=== PATIENT | male | born 1965 | race Caucasian/White ===

== ENCOUNTER 2019-08-13 10:14 | Outpatient (CLI) | payer MEDICARE, SELFPAY ==
--- NOTE | ~2019-08-13 | MR_ITS ---
EXAMINATION: MR knee RT wo con DATE: 08/13/2019 10:53 INDICATION: Unspecified right knee pain. TECHNIQUE: Magnetic resonance imaging (MRI) of the right knee was performed without intravenous contr ast. Sequences included coronal PD-weighted FSE, coronal PD-weighted FS FSE, sagittal T2-weighted FS E, sagittal PD-weighted FS FSE and axial PD weighted fat saturated FSE. COMPARISON: None. FINDINGS: Medial compartment: Medial meniscus is normal. Partial-thickness cartilage loss with smooth chondral surface along the an teromedial aspect of the medial tibial plateau and medial margin of the weightbearing medial femoral condyle. Some chondral surface irregularity is seen along the lateral margin of the anterior weightbe aring medial femoral condyle and juxtaposed articular cartilage of the intercondylar eminence. Tiny m arginal osteophytes are present. Lateral compartment: Longitudinal horizontal tear extending to the inferior articular surface near the free edge of the sara dy and posterior horn of the lateral meniscus. There appears be a second complex predominantly horizo ntal tear plane which contacts the inferior articular surface near the free edge medially and with th e contact the articular surface extending more peripherally as it extends to the junction with the po sterior body. There is some fraying along the inner free edge of the posterior horn. Partial-thicknes s chondral ulceration with chondral surface irregularity along the anterior to posterior weightbearin g lateral femoral condyle. In places this involves greater than 50% of the cartilage thickness. Small central subchondral osteophyte at the central weightbearing lateral femoral condyle and mild irregul arity to the articular cortex at the posterior weightbearing lateral femoral condyle. Small marginal osteophytes are present. Patellofemoral compartment: Deep chondral ulceration and fissuring along the lateral patellar facet and to a lesser degree at the apical ridge and medial facet. Small focus of subarticular edema at the central aspect of the latera l patellar facet. Additional chondral ulceration and deep fissuring with mild irregularity to the und erlying cortex and minimal subarticular edema at the caudal aspect of the lateral trochlea. Additiona l shallow chondral ulceration and deeper fissuring without degenerative subarticular changes at the t rochlear groove and medial trochlea. Ligaments and tendons: Anterior cruciate ligament is normal. There is increased intrasubstance signal along the femoral side of the posterior cruciate ligament suggesting partial tear with no discrete discontinuous ligament f ibers appreciated. The medial collateral ligament and fibular collateral ligament are normal. Mild di stal quadriceps tendinopathy with moderate size enthesophyte at its patellar insertion. There is also mild proximal patellar tendinopathy. The visualized medial and lateral hamstring tendons as well as the iliotibial band are normal. Fluid: Physiologic amount of fluid in the joint space. 1.7 x 1.4 x 1.0 cm loose osteochondral body in the re cess posterior to the posterior cruciate ligament. Moderate prepatellar tissue edema without discrete bursal fluid collection. Osseous/other: Bone alignment is normal. No fracture or pathologic marrow replacing process. There is an intraosseou s ganglion cyst at the proximal fibula which arises deep to the insertion of the intact appearing pop liteofibular ligament. IMPRESSION: 1. Likely complex tear of the body and posterior horn of the lateral meniscus. 2. Mild tricompartmental osteoarthritis with moderate grade chondral malacia in the medial compartmen t and extensive high-grade chondromalacia in the lateral and patellofemoral compartments. 3. Possible partial tear of the posterior cruciate ligament 4. Mild tendinopathy without discrete tear at the patellar insertions of
== END 2019-08-13 10:15 ==
PROVIDERS: PCP Family Medicine; Visit Provider Orthopaedic Surgery
DX: M17.11 Unilateral primary osteoarthritis, right knee (principal)
CPT/HCPCS: 73721

== ENCOUNTER 2019-08-15 08:56 | Outpatient (CLI) | payer MEDICARE, SELFPAY ==
--- NOTE | 2019-08-15 09:00 | ECG_ITS ---
Measurements Intervals [place] Rate: 68 P: 16 PA: 166 QRS: -22 QRSD: 77 T: 41 QT: 376 QTc: 401 Interpretive Statements SINUS RHYTHM DELAYED PRECORDIAL R/S TRANSITION LOW QRS VOLTAGE IN LIMB LEADS BORDERLINE ECG Electronically Signed On 08-15-2019 9:29:40 CDT by Noel Barrera D.O.
[2019-08-15 09:57] LABS: Blood Urea Nitrogen 19 mg/dL (9-20); Calcium 9.2 mg/dL (8.4-10.2); Carbon Dioxide 24 mmol/L (22-30); Chloride 105 mmol/L (98-107); Estimated Glomerular Filt Rate > 60; Glucose 165 mg/dL (75-110); Potassium 4.2 mmol/L (3.4-5.0); Sodium 133 mmol/L (137-145)
== END 2019-08-15 08:57 | disposition home or self-care (01) ==
PROVIDERS: Anesthesiology; PCP Family Medicine; Visit Provider Otolaryngology
DX: Z51.81 Encounter for therapeutic drug level monitoring (principal); I10 Essential (primary) hypertension; R94.31 Abnormal electrocardiogram [ECG] [EKG]
CPT/HCPCS: 36415; 80048; 93005

== ENCOUNTER 2019-08-18 01:12 | Outpatient (CLI) | payer MEDICARE, SELFPAY ==
[2019-08-18 18:09] LABS: SARS-CoV-2 RNA PCR Negative
== END 2019-08-18 01:13 | disposition home or self-care (01) ==
LOC: ANHCOVIDDT 01:12
PROVIDERS: PCP Family Medicine; Visit Provider Otolaryngology
DX: Z01.818 Encounter for other preprocedural examination (principal); Z11.59 Encounter for screening for other viral diseases
CPT/HCPCS: 87635; C9803; U0003

== ENCOUNTER 2019-08-21 02:34 | Day surgery (SDC) | payer MEDICARE, SELFPAY ==
[2019-08-13 11:26] VITALS: BMI 36.4
--- NOTE | 2019-08-15 06:58 | PM.HPGS ---
History of Present Illness History of Present Illness Consent: Risks, benefits, and alternatives have been discussed and questions answered. Patient agrees to proceed with procedure. Chief complaint: Chronic Serous Otitis Media Narrative: Dandy Carias is a 53 year old male [place] long history of chronic serous otitis and ear problems he is admitted now for a sub annular replacement of the ventilation tube Review of Systems Review of Systems: All systems reviewed & are unremarkable except as noted in HPI and below PMFSH Social History Social History Smoking packs per day: 1.5 Smoking cigarettes per day: 30.0 Years smoked: 35 Smoking pack-years: 52.50 Smoking status: Current every day smoker Tobacco type: cigarettes Second hand tobacco smoke exposure: Yes Alcohol intake: never Drinks per week: 2 Substance use: never Substance use type: does not use Spiritual care concerns: No Meds Home Medications and Allergies Home Medications Medication Instructions Recorded Confirmed Type acetaminophen 650 mg 650 mg PO Q12H 01/02/19 08/13/19 History tablet,extended release fluticasone propionate 50 1 spray NASAL DAILY 01/02/19 08/13/19 History mcg/actuation nasal spray,suspension testosterone cypionate 200 mg/mL 200 mg IM MONTHLY #3 vial 04/23/19 08/13/19 Rx intramuscular oil lisinopril 10 1 tablet PO DAILY #90 tablet 05/03/19 08/13/19 Rx mg-hydrochlorothiazide 12.5 mg tablet simvastatin 20 mg tablet 20 mg PO DAILY #90 tablet 05/03/19 08/13/19 Rx naproxen 500 mg tablet 500 mg PO BID #180 tablet 06/29/19 08/13/19 Rx famotidine 40 mg PO DAILY 08/13/19 08/13/19 History sertraline 50 mg PO BID 08/13/19 08/13/19 History trazodone 50 mg PO HS 08/13/19 08/13/19 History Allergies Allergy/AdvReac Type Severity Reaction Status Date / Time No Known Allergies Allergy Verified 08/13/19 11:27 Assessment and Plan Additional Plan Plan is a sub annular placement of a ventilation tube
--- NOTE | 2019-08-21 06:24 | WPDHPUPDATE1 ---
History and Physical Update Update Date/Time: 08/21/19 06:24 History and Physical has been reviewed, including an updated exam of the patient. There are NO changes in the patient's condition. Risks, benefits, and alternatives have been discussed and questions answered. Patient agrees to proceed with procedure.
[2019-08-21] MEDS: LACTATED RINGERS 1,000 ML 30 ML IV CONT (08:47)
[2019-08-21 08:51] VITALS: BP 103/58; PULSE 55; TEMP 36.1; O2SAT 98
--- NOTE | 2019-08-21 09:28 | WPDANESEPPF ---
Anes - Initial Pre Proc Eval Procedure: Operation Date: 08/21/19 10:15 Proposed Procedures p Right Exploratory Tympanotomy With Tube Placement - Dandy Kerns MD Date/Time: 08/21/19 09:28 Surgeon: Dandy Kerns MD Pre Op Diagnosis: Chronic Serous Otitis Media Patient Data Age: 53 Gender: M Height: 6 ft Weight: 122.6 kg Last Vital Signs Temp 97.0 F L 08/21/19 08:51 Pulse 55 L 08/21/19 08:51 BP 103/58 L 08/21/19 08:51 Pulse Ox 98 08/21/19 08:51 Allergies Allergy/AdvReac Type Severity Reaction Status Date / Time No Known Allergies Allergy Verified 08/13/19 11:27 Home Medications Medication Instructions Recorded Confirmed Type acetaminophen 650 mg 650 mg PO Q12H 01/02/19 08/21/19 History tablet,extended release fluticasone propionate 50 1 spray NASAL DAILY 01/02/19 08/21/19 History mcg/actuation nasal spray,suspension testosterone cypionate 200 mg/mL 200 mg IM MONTHLY #3 vial 04/23/19 08/21/19 Rx intramuscular oil lisinopril 10 1 tablet PO DAILY #90 tablet 05/03/19 08/21/19 Rx mg-hydrochlorothiazide 12.5 mg tablet simvastatin 20 mg tablet 20 mg PO DAILY #90 tablet 05/03/19 08/21/19 Rx naproxen 500 mg tablet 500 mg PO BID #180 tablet 06/29/19 08/21/19 Rx famotidine 40 mg PO DAILY 08/13/19 08/21/19 History sertraline 50 mg PO BID 08/13/19 08/21/19 History trazodone 50 mg PO HS 08/13/19 08/21/19 History Patient hx anesthesia problems: none Family hx anesthesia problems: none PMFSH Social History Social History Smoking packs per day: 1.5 Smoking cigarettes per day: 30.0 Years smoked: 35 Smoking pack-years: 52.50 Smoking status: Current every day smoker Tobacco type: cigarettes Second hand tobacco smoke exposure: Yes Alcohol intake: never Drinks per week: 2 Substance use: never Substance use type: does not use Spiritual care concerns: No Anes - Eval Final PreProcedure Day of Procedure 08/21/19 09:28 Patient weight: obese Heart: regular rate and rhythm Lungs: clear to auscultation Airway: Mallampati scale class III Neurological: alert and oriented Last oral intake: >/= 8 hours ASA classification: III Emergent: no Anesthetic plan: proceed Anesthesia type and monitoring: general LMA and standard monitoring Informed Consent: The patient's anesthetic plan and its attendant risks and benefits were discussed with the patient/family/POA. Questions were solicited and answers provided to the satisfaction of the patient/family/POA.
[2019-08-21] MEDS: LIDO 1%/EPINEPHRINE 1:100,000 20 ML VIAL INFILTRATE (10:21)
[2019-08-21] MEDS: NEOMYCIN/POLYMYXIN/BACITR/HC OINT 15 GM TUBE 1 APPLIC TOPICAL (10:23)
[2019-08-21] MEDS: CIPROFLOXACIN HCL 0.3% OP SOLN 2.5 ML BTL 4 DROP EACH EAR (10:24)
--- NOTE | 2019-08-21 10:25 | PM.PROC ---
Procedure Note - Detailed Date of procedure: 08/21/19 Pre-op diagnosis: Chronic Serous Otitis Media Chronic serous otitis Post-op diagnosis: same Procedure performed: Right sub annular placement of a T-tube and a secondary to anterosuperiorly Description of procedure: Patient was prepped and draped from general anesthesia vascular strip was injected with xylocaine with adrenaline a tympanomeatal flap elevated and the T-tube inserted under the annulus a secondary tube was inserted us anterosuperior this Anesthesia: GLMA Surgeon: Dandy Kerns MD Estimated blood loss (mL): 0 Drains: No Packing: No Pathology: none sent Complications: No immediate complications Condition: stable Disposition: PACU Findings: right serous otitis
[2019-08-21 10:32] VITALS: BP 80/36; PULSE 60; TEMP 36.3; O2SAT 98
[2019-08-21 10:45] VITALS: BP 85/38; PULSE 59; O2SAT 97
[2019-08-21 11:00] VITALS: BP 86/41; PULSE 59; O2SAT 93
[2019-08-21 11:15] VITALS: BP 96/50; PULSE 59
[2019-08-21 11:45] VITALS: BP 106/58; PULSE 59
--- NOTE | 2019-08-21 12:12 | SUR.PHASEII ---
1200: Patient is unhooked from monitors and waiting for ride.
== END 2019-08-21 12:25 | disposition home or self-care (01) ==
PROVIDERS: PCP Family Medicine; Visit Provider Otolaryngology
PROC: (CPT 69436; principal; 2019-08-21 10:15)
DX: H65.21 Chronic serous otitis media, right ear (principal); F17.210 Nicotine dependence, cigarettes, uncomplicated; E66.9 Obesity, unspecified; Z68.36 Body mass index [BMI] 36.0-36.9, adult
CPT/HCPCS: 69436; 87635; A9270; C9803; J0171; J1100; J2250; J2405; J2704; J3010; J7120; U0003

== ENCOUNTER 2019-09-10 01:24 | Outpatient (CLI) | payer OTHER, SELFPAY ==
[2019-09-10 16:16] LABS: SARS-CoV-2 RNA PCR Negative
== END 2019-09-10 01:25 | disposition home or self-care (01) ==
LOC: ANHCOVIDDT 01:24
PROVIDERS: PCP Family Medicine; Visit Provider Orthopaedic Surgery
DX: Z01.812 Encounter for preprocedural laboratory examination (principal); Z11.59 Encounter for screening for other viral diseases
CPT/HCPCS: 87635; C9803; U0003

== ENCOUNTER 2019-09-12 00:55 | Day surgery (SDC) | payer OTHER, SELFPAY ==
[2019-08-30 15:05] VITALS: BMI 36.4
--- NOTE | 2019-09-11 11:03 | WPDANESEPPF ---
Anes - Initial Pre Proc Eval Procedure: Operation Date: 09/12/19 14:00 Proposed Procedures p Right Knee Arthroscopy, Proceed As Indicated - Santiago Mccoy MD Date/Time: 09/11/19 11:03 Surgeon: Santiago Mccoy MD Pre Op Diagnosis: Right Medial Meniscus Tear Patient Data Age: 54 Gender: M Height: 1.83 m Weight: 122.02 kg Allergies Allergy/AdvReac Type Severity Reaction Status Date / Time No Known Allergies Allergy Verified 08/30/19 15:06 Home Medications Medication Instructions Recorded Confirmed Type acetaminophen 650 mg 650 mg PO Q12H 01/02/19 08/30/19 History tablet,extended release fluticasone propionate 50 1 spray NASAL DAILY 01/02/19 08/30/19 History mcg/actuation nasal spray,suspension testosterone cypionate 200 mg/mL 200 mg IM MONTHLY #3 vial 04/23/19 08/30/19 Rx intramuscular oil lisinopril 10 1 tablet PO DAILY #90 tablet 05/03/19 08/30/19 Rx mg-hydrochlorothiazide 12.5 mg tablet simvastatin 20 mg tablet 20 mg PO DAILY #90 tablet 05/03/19 08/30/19 Rx naproxen 500 mg tablet 500 mg PO BID #180 tablet 06/29/19 08/30/19 Rx famotidine 40 mg PO DAILY 08/13/19 08/30/19 History sertraline 50 mg PO BID 08/13/19 08/30/19 History trazodone 50 mg PO HS 08/13/19 08/30/19 History chlorhexidine gluconate 4 % 1 applic TOPICAL ONCE #237 ml 08/28/19 08/30/19 Rx topical liquid PMFSH Social History Social History Smoking packs per day: 1.5 Smoking cigarettes per day: 30.0 Years smoked: 30 Smoking pack-years: 45.00 Smoking status: Current every day smoker Tobacco type: cigarettes Second hand tobacco smoke exposure: Yes Alcohol intake: current Drinks per week: 2 Substance use: never Substance use type: does not use Spiritual care concerns: No Anes - Eval Final PreProcedure Day of Procedure 09/11/19 11:03 Patient weight: obese Heart: regular rate and rhythm Lungs: clear to auscultation and normal air movement Airway: Mallampati scale class II Neurological: alert and oriented Last oral intake: >/= 8 hours ASA classification: III Emergent: no Anesthetic plan: proceed Anesthesia type and monitoring: general LMA and standard monitoring Informed Consent: The patient's anesthetic plan and its attendant risks and benefits were discussed with the patient/family/POA. Questions were solicited and answers provided to the satisfaction of the patient/family/POA.
[2019-09-12] VITALS (8 sets, daily range): BP systolic 119–165; BP diastolic 67–91; PULSE 57–92; RESP 11–20; TEMP 36.1–36.6; O2SAT 57–99
--- NOTE | 2019-09-12 07:16 | WPDHPUPDATE1 ---
History and Physical Update Update Date/Time: 09/12/19 07:16 History and Physical has been reviewed, including an updated exam of the patient. There are NO changes in the patient's condition. Risks, benefits, and alternatives have been discussed and questions answered. Patient agrees to proceed with procedure.
[2019-09-12] MEDS: LACTATED RINGERS 1,000 ML 30 ML IV CONT ×2 (12:15→14:58)
[2019-09-12] MEDS: CELECOXIB 200 MG CAPSULE PO (12:35)
--- NOTE | 2019-09-12 12:53 | WPDANESEPPF ---
Anes - Initial Pre Proc Eval Procedure: Operation Date: 09/12/19 14:00 Proposed Procedures p Right Knee Arthroscopy, Proceed As Indicated - Santiago Mccoy MD Date/Time: 09/12/19 12:53 Surgeon: Santiago Mccoy MD Pre Op Diagnosis: Right Medial Meniscus Tear Patient Data Age: 54 Gender: M Height: 6 ft Weight: 124.3 kg Last Vital Signs Temp 97.9 F 09/12/19 12:26 Pulse 57 L 09/12/19 12:26 Resp 17 09/12/19 12:26 BP 119/67 09/12/19 12:26 Pulse Ox 57 L 09/12/19 12:26 Allergies Allergy/AdvReac Type Severity Reaction Status Date / Time No Known Allergies Allergy Verified 08/30/19 15:06 Home Medications Medication Instructions Recorded Confirmed Type acetaminophen 650 mg 650 mg PO Q12H 01/02/19 08/30/19 History tablet,extended release fluticasone propionate 50 1 spray NASAL DAILY 01/02/19 08/30/19 History mcg/actuation nasal spray,suspension testosterone cypionate 200 mg/mL 200 mg IM MONTHLY #3 vial 04/23/19 08/30/19 Rx intramuscular oil lisinopril 10 1 tablet PO DAILY #90 tablet 05/03/19 08/30/19 Rx mg-hydrochlorothiazide 12.5 mg tablet simvastatin 20 mg tablet 20 mg PO DAILY #90 tablet 05/03/19 08/30/19 Rx naproxen 500 mg tablet 500 mg PO BID #180 tablet 06/29/19 08/30/19 Rx famotidine 40 mg PO DAILY 08/13/19 08/30/19 History sertraline 50 mg PO BID 08/13/19 08/30/19 History trazodone 50 mg PO HS 08/13/19 08/30/19 History chlorhexidine gluconate 4 % 1 applic TOPICAL ONCE #237 ml 08/28/19 08/30/19 Rx topical liquid Patient hx anesthesia problems: none Family hx anesthesia problems: none PMFSH Social History Social History Smoking packs per day: 1.5 Smoking cigarettes per day: 30.0 Years smoked: 30 Smoking pack-years: 45.00 Smoking status: Current every day smoker Tobacco type: cigarettes Second hand tobacco smoke exposure: Yes Alcohol intake: current Drinks per week: 2 Substance use: never Substance use type: does not use Spiritual care concerns: No Anes - Eval Final PreProcedure Day of Procedure 09/12/19 12:53 Patient weight: obese Heart: regular rate and rhythm Lungs: clear to auscultation Airway: Mallampati scale class III Neurological: alert and oriented Last oral intake: >/= 8 hours ASA classification: III Emergent: no Anesthetic plan: proceed Anesthesia type and monitoring: general LMA and standard monitoring Informed Consent: The patient's anesthetic plan and its attendant risks and benefits were discussed with the patient/family/POA. Questions were solicited and answers provided to the satisfaction of the patient/family/POA.
[2019-09-12] MEDS: ceFAZolin 3 GM/D5W 100 ML 100 ML IVPB (13:29)
--- NOTE | 2019-09-12 15:00 | PM.OP ---
Procedure Note - Brief Procedure Note - Brief Date of procedure: 09/12/19 Pre-op diagnosis: Right Medial Meniscus Tear Post-op diagnosis: other (lateral meniscus tear and medial meniscus tear) Procedure performed: RIGHT KNEE SCOPE Anesthesia: GETA Surgeon: Santiago Mccoy MD Estimated blood loss (mL): 10 Complications: No immediate complications Condition: stable Disposition: PACU
--- NOTE | 2019-09-12 16:56 | OP_ITS ---
DATE OF PROCEDURE: 09/12/2019 PREOPERATIVE DIAGNOSIS: Right knee medial meniscus tear. POSTOPERATIVE DIAGNOSES: Right medial meniscus tear, right lateral meniscus tear, chondromalacia, and synovitis. PROCEDURE: Right knee arthroscopy with partial medial meniscectomy, partial lateral meniscectomy, and major synovectomy. ANESTHESIA: General. COMPLICATIONS: None. INDICATIONS: This is a 54-year-old male who has chronic right knee pain. He was eventually diagnosed with a medial meniscus tear and a lateral meniscus tear. He was indicated for right knee arthroscopy. DESCRIPTION OF PROCEDURE: The patient was taken to the operating room in stable condition and placed in supine position. General anesthesia was induced and then the right lower extremity was prepped and draped sterilely from the toes to the thigh. Superomedial portal was used as an outflow cannula. Inferolateral plane was used for the camera. The camera was introduced. There was grade 2 chondromalacia to the patella and to the trochlea. There was a large amount of synovitis in the superior medial compartment. There was a large plica band there as well impinging on the medial femoral condyle. With flexion, the medial compartment was entered. There was a radial tear to the medial meniscus and that was resected with a biter and a shaver through a medial portal. Synovectomy was performed in that region as well. The ACL was identified and was intact. The lateral compartment was entered. There was a complex tear of the lateral meniscus. This was resected with a shaver and a biter as well and contoured to a smooth base. There was also grade 3 chondromalacia to the lateral femoral condyle and that underwent chondroplasty and synovectomy was performed in that region as well. Next, the chondroplasty was performed in the femoral groove just distal to the trochlea where there was grade 3 chondromalacia and then synovectomy was performed in [place] synovium. The knee joint was irrigated thoroughly. The patella tracked without any tilt. The instruments were removed. The wounds were approximated with 4-0 nylon suture. Sterile dressing was applied. The patient was extubated. Don I MT: Nickolas
== END 2019-09-12 17:07 | disposition home or self-care (01) ==
PROVIDERS: PCP Family Medicine; Visit Provider Orthopaedic Surgery
PROC: (CPT 29870; principal; 2019-09-12 14:00)
DX: M23.331 Other meniscus derangements, other medial meniscus, right knee (principal); M23.361 Other meniscus derangements, other lateral meniscus, right knee; M65.861 Other synovitis and tenosynovitis, right lower leg; M22.41 Chondromalacia patellae, right knee; E78.5 Hyperlipidemia, unspecified; K21.9 Gastro-esophageal reflux disease without esophagitis; F41.8 Other specified anxiety disorders; G47.33 Obstructive sleep apnea (adult) (pediatric); F17.210 Nicotine dependence, cigarettes, uncomplicated; Z79.82 Long term (current) use of aspirin
CPT/HCPCS: 29880; 87635; A9270; C9803; J0690; J1100; J1885; J2250; J2405; J2704; J3010; J7120; U0003

== ENCOUNTER 2019-11-26 07:19 | Outpatient (RCR) | payer MEDICARE, SELFPAY ==
[2019-09-18 08:56] VITALS: BMI 35.7
--- NOTE | 2019-10-22 12:20 | PCWOUND ---
WOCN NOTE Patient did not show up for appointment. called and rescheduled for next Tuesday.
--- NOTE | 2019-10-29 12:27 | PCWOUND ---
WOCNNOTE Patient did not show up for appointment, left message.
== END 2019-12-17 23:59 | disposition home or self-care (01) ==
LOC: ANHWOC 07:19
PROVIDERS: PCP Family Medicine; Visit Provider Family Medicine
DX: L98.499 Non-pressure chronic ulcer of skin of other sites with unspecified severity (principal)
CPT/HCPCS: 99212; A9270; G0463

== ENCOUNTER 2020-05-07 07:41 | Outpatient (RCR) | payer MEDICARE, SELFPAY ==
[2020-04-09 09:09] VITALS: BMI 36.9
--- NOTE | 2020-06-04 10:02 | PCWOUND ---
WOCN NOTE patient did not show up for appointment or call to cancel .
== END 2020-07-08 23:59 | disposition home or self-care (01) ==
LOC: ANHWOC 07:41
PROVIDERS: PCP Family Medicine; Visit Provider Family Medicine
DX: T81.31XD Disruption of external operation (surgical) wound, not elsewhere classified, subsequent encounter (principal)
CPT/HCPCS: 99212; A9270; G0463

== ENCOUNTER 2020-09-04 02:00 | Inpatient (IN) | payer MEDICARE, MEDICAID, SELFPAY ==
[2020-09-04] VITALS (56 sets, daily range): BP systolic 66–180; BP diastolic 38–100; PULSE 84–148; RESP 14–40; TEMP 36.4–39.6; O2SAT 88–99; BMI 36.4
--- NOTE | ~2020-09-04 | XR_ITS ---
XR chest-chest tube insert/pos 09/04/2020 09:09 Indication: Chest tube placement Procedure: AP portable chest Comparison: Comparison to multiple prior studies sequentially, with oldest reviewed study dated 01/07. Findings: Interval placement of right apical chest tube. No pneumothorax identified. Subcutaneous gas in the right lateral chest wall. NG tube in the stomach. Endotracheal tube tip approximately 4.3 cm right IJ central line tip near the brachiocephalic vein. Bibasilar airspace disease. Impression: 1: Persistent bibasilar airspace disease which may represent atelectasis and/or pneumonia. 2: Right apical chest tube is present. No pneumothorax identified. Reviewed, dictated and finalized at location A. Impression: 1: Persistent bibasilar airspace disease which may represent atelectasis and/or pneumonia. 2: Right apical chest tube is present. No pneumothorax identified.
--- NOTE | ~2020-09-04 | XR_ITS ---
XR chest 1V portable 09/04/2020 11:43 Indication: Hypoxia Procedure: AP view of the chest Comparison: Comparison to multiple prior studies sequentially, with oldest reviewed study dated 01/07. Findings: Endotracheal tube tip 4.9 cm above the kathleen. Right apical chest tube position unchanged. Mild interstitial edema. Left basilar bandlike atelectasis. Borderline heart size. No pneumothorax. P ossible small effusions. Impression: 1: Mild interstitial edema. 2: Bandlike atelectasis left lower lung. Reviewed, dictated and finalized at location A. Impression: 1: Mild interstitial edema. 2: Bandlike atelectasis left lower lung.
--- NOTE | ~2020-09-04 | XR_ITS ---
XR chest 1V portable 09/04/2020 02:27 Indication: Hypoxia Procedure: AP portable chest Comparison: 01/24/2008 Findings: Heart size normal. Bilateral perihilar interstitial infiltrates. No significant effusion or pneumothorax. No acute osseous abnormality. Impression: 1: Bilateral perihilar interstitial infiltrates which may represent pneumonia or edema. Reviewed, dictated and finalized at location A. Impression: 1: Bilateral perihilar interstitial infiltrates which may represent pneumonia o r edema.
--- NOTE | ~2020-09-04 | CT_ITS ---
EXAMINATION: CT chest abdomen pelvis wo con DATE: 09/05/2020 08:49 INDICATION: Septic shock TECHNIQUE: Computed tomography (CT) of the chest, abdomen, and pelvis was performed without intraveno us contrast. Automated exposure control and iterative reconstruction technique were employed. The dos e-length product was 2171.38 mGy-cm. COMPARISON: 09/04/2020 FINDINGS: CHEST CT: Endotracheal tube tip 4.4 cm above the kathleen. Nasogastric tube which extends into the stomach with d istal tip at the gastric antrum. Interval placement of a right chest tube. No evident right pneumotho rax. Region of confluent consolidation and groundglass opacity in the dependent right upper lobe. Sma ller regions of patchy groundglass opacity in the left upper lobe and lingula. There is collapse of t he right middle lobe. Partial collapse of the bilateral lower lobes. Small left pleural effusion. Hea rt size is normal. No pericardial effusion. Thoracic aorta is normal in caliber. No pathologically en larged thoracic lymphadenopathy. Mild thoracic spondylosis. ABDOMEN/PELVIS CT: Diffuse hepatic steatosis. Cholecystectomy clips the gallbladder fossa. Spleen, pancreas, left kidney and bilateral adrenal glands are normal. Moderate right renal atrophy with regions of cortical scarr ing. Large open surgical wound along the midline of the abdomen were previously there were numerous v entral hernias. There is a residual small fat and ascites containing right ventral hernia. A couple l oops of small bowel extend short distance into an additional residual left-sided ventral hernia. No d ilated bowel to suggest obstruction. There is however suggestion of edematous wall thickening involvi ng the proximal colon as well as multiple loops of small bowel scattered throughout the abdomen and p sandy on both the left and right. Small amount of gas and a Horton catheter within the decompressed bl adder. There is an additional small catheter versus temperature probe extending into the rectum. Agai n seen are changes of more chronic partial colectomy with distal sigmoid anastomotic suture line. The re is extensive mesenteric and retroperitoneal edema along with small amount of ascites scattered thr oughout the abdomen and pelvis. There are also few tiny foci of extraluminal gas scattered throughout the mesentery. No abscess. Moderate lumbar spondylosis. IMPRESSION: 1. Interval placement of a right chest tube. No pneumothorax. 2. Confluent consolidation and groundglass opacities in the dependent right lower lobe with additiona l patchy groundglass opacities in the lingula and left upper lobe. Differential includes pulmonary he morrhage, pneumonia, aspiration, pulmonary edema or some combination thereof. 3. Collapse of the right middle lobe and partial collapse of the right and left lower lobes. 4. Small left pleural effusion. 5. Large open wound along the midline of the abdomen at the site of a prior multiple large ventral he rnias with residual small ventral hernias, one on the right containing fat and small amount of ascite s and one on the left containing a couple short segments of nonobstructed small bowel. 6. Bowel wall thickening in the proximal colon and along multiple loops of small bowel throughout the abdomen and pelvis consistent with enterocolitis most likely related to either sepsis or ischemia wi th differential including less likely infection or least likely inflammatory bowel disease. 7. Mesenteric and retroperitoneal edema, small amount of ascites and a few scattered foci of free ext raluminal gas along the small bowel mesentery which could be related to prior surgery although some w ere present before the surgery would suggest a prior bowel ischemia/or perforation. Correlate with in traoperative findings. Reviewed, dictated and finalized at location A. Electronically signed by Aleksey Lockhart
--- NOTE | ~2020-09-04 | XR_ITS ---
XR chest-chest tube insert/pos 09/05/2020 02:57 Indication: Hypoxia. Dyspnea. Chest tube placement. Procedure: AP portable chest Comparison: Comparison to multiple prior studies sequentially, with oldest reviewed study dated 09/04. Findings: Endotracheal tube tip 4.3 cm above the kathleen. Right apical chest tube present. Diffuse jackie ateral airspace disease unchanged. No significant effusion. No pneumothorax. Right IJ central line ti p near the brachiocephalic vein. NG tube is not well visualized distally. Elevated right diaphragm un changed. Impression: 1: Unchanged bilateral airspace disease which may represent edema or pneumonia. Reviewed, dictated and finalized at location A. Impression: 1: Unchanged bilateral airspace disease which may represent edema or pneumonia.
--- NOTE | ~2020-09-04 | XR_ITS ---
XR chest 1V portable 09/04/2020 09:08 Indication: Dyspnea. Low oxygen saturation. Procedure: AP portable chest Comparison: Comparison to multiple prior studies sequentially, with oldest reviewed study dated 03/2006. Findings: Endotracheal tube tip 3.7 cm above the kathleen. NG tube in the stomach. Right IJ central hernando e tip near the brachiocephalic vein. Bibasilar infiltrates. No significant effusion or pneumothorax. Impression: 1: Bibasilar infiltrates may represent atelectasis and/or pneumonia. Reviewed, dictated and finalized at location A. Impression: 1: Bibasilar infiltrates may represent atelectasis and/or pneumonia.
--- NOTE | ~2020-09-04 | XR_ITS ---
EXAMINATION: XR chest 1V portable DATE: 09/06/2020 06:23 INDICATION: Intubated TECHNIQUE: frontal view of the chest was obtained. COMPARISON: Chest radiograph dated 09/05/2020 FINDINGS: Endotracheal tube tip 3.2 cm above the kathleen. Apically directed right chest tube. Right internal jug ular central venous catheter with distal tip at the junction of the right internal jugular and brachi ocephalic veins. Nasogastric tube extends below the left hemidiaphragm with distal tip collimated of f the study. Diffuse airspace opacities throughout both lungs relatively sparing the apices. This has increased in the left lower lung zone. No pneumothorax or evident pleural effusion. The cardiomediastinal silhoue tte is within normal limits for AP technique. IMPRESSION: 1. Diffuse bilateral lung disease relatively sparing the apices which could represent pneumonia, atel ectasis, pulmonary edema or some combination thereof. Reviewed, dictated and finalized at location A. IMPRESSION: 1. Diffuse bilateral lung disease relatively sparing the apices which could rep resent pneumonia, atelectasis, pulmonary edema or some combination thereof.
--- NOTE | ~2020-09-04 | CT_ITS ---
EXAMINATION: CT abdomen pelvis w con DATE: 09/04/2020 03:09 INDICATION: Generalized abdominal pain TECHNIQUE: Computed tomography (CT) of the abdomen and pelvis was performed with 100 mL Omnipaque-350 intravenous contrast. Automated exposure control and iterative reconstruction technique were employe d. The dose-length product was 1386.26 mGy-cm. COMPARISON: None FINDINGS: Dependent atelectasis in the bilateral lower lobes, right greater than left. Heart size is normal. No pericardial or pleural effusion. Diffuse hepatic steatosis. Cholecystectomy clips at gallbladder fos sa. Spleen, pancreas, bilateral adrenal glands and left kidney are normal. Moderate right renal atrop hy with focal regions of cortical scarring. Small amount of ascites throughout the abdomen and pelvis along with small amount of pneumoperitoneum in the nondependent abdomen consistent with perforated v iscus. Postoperative change of prior partial colectomy with anastomotic suture line in the pelvis caryn ng the distal sigmoid colon. Multiple ventral hernias of varying sizes containing multiple loops of s mall bowel, many of which are dilated. There are several transition points where the small bowel is d ecompressed angulated were enters and exits a few of the hernia sacs. The distal small bowel is decom pressed beyond one of these transition points which is located at one of the hernia sacs at the right abdomen. Normal appendix. Decompressed bladder is unremarkable. There is small amount of scattered c alcified atherosclerosis without significant stenosis of the aorta and bilateral iliac arteries. Smal l bilateral fat-containing inguinal hernias. Moderate thoracolumbar spondylosis. Severe right and mil d to moderate left hip osteoarthritis. IMPRESSION: 1. Small bowel obstruction with multiple mildly dilated loops of fluid-filled small bowel, potentiall y multifocal with several transition points where the bowel is focally decompressed and angulated whe re it enters or exhibits a few of multiple ventral hernias sacs. 2. Small amount of ascites and scattered free intraperitoneal gas consistent with perforated viscus a nd raising concern for small bowel incarceration with ischemia. 3. Diffuse hepatic steatosis. 4. Small bilateral fat-containing inguinal hernias. Reviewed, dictated and finalized at location A. IMPRESSION: 1. Small bowel obstruction with multiple mildly dilated loops of fluid-filled s mall bowel, potentially multifocal with several transition points where the bow el is focally decompressed and angulated where it enters or exhibits a few of m ultiple ventral hernias sacs. 2. Small amount of ascites and scattered free intraperitoneal gas consistent wi th perforated viscus and raising concern for small bowel incarceration with isc hemia. 3. Diffuse hepatic steatosis. 4. Small bilateral fat-containing inguinal hernias.
--- NOTE | ~2020-09-04 | XR_ITS ---
XR abdomen NG/feed tube insert INDICATION: Evaluate NG tube position. TECHNIQUE: Limited KUB perform for evaluating NG tube . COMPARISON: 12/30/2009 FINDINGS: NG tube tip in the midesophagus. Visualized bowel gas pattern is unremarkable.There are le ft renal stones. There are cholecystectomy clips. IMPRESSION: 1: NG tube tip in the midesophagus. Recommend advancement. Reviewed, dictated and finalized at location A.
--- NOTE | 2020-09-04 02:05 | ED.ABDPAIN ---
HPI - Abdominal Pain General Chief Complaint: Abdominal Pain Stated Complaint: abd pain Time Seen by Provider: 09/04/20 02:05 History of Present Illness HPI narrative: 55 yo male w/ h/o perforated diverticulitis presents to the ED c/o abdominal pain. Severe generalized abdominal pain for the past 4 hours. Associated with nausea and vomiting. He has had 2 previous surgeries for perforated diverticulitis in the past at [facility]. Given 100mcg fentanyl by EMS. Arrived hypoxic. Related Data Home Medications Medication Instructions Recorded Confirmed sertraline 50 mg tablet 50 mg PO BID tablet 07/03/20 08/21/20 Allergies Allergy/AdvReac Type Severity Reaction Status Date / Time No Known Allergies Allergy Verified 09/04/20 02:27 Review of Systems Constitutional: Constitutional: Reports chills and Denies fever(s) Cardiovascular: Cardiovascular: Denies chest pain Respiratory: Respiratory: Denies dyspnea Gastrointestinal: Gastrointestinal: Reports abdominal pain, Reports nausea and Reports vomiting Genitourinary: Genitourinary: Reports no additional male genitourinary complaints Neurologic: Reports system reviewed and no additional complaints, except as documented PMFSH Past Medical History Medical History Anxiety Arthritis Chronic low back pain without sciatica Decreased hearing of right ear Degenerative disc disease Depression Diverticulitis Dyslipidemia Environmental allergies Essential (primary) hypertension Fatty liver GERD (gastroesophageal reflux disease) GERD without esophagitis Hemorrhoids History of anesthesia reaction History of diverticulitis Hypogonadism male Insomnia LIBRA (obstructive sleep apnea) Prediabetes Prostatitis Sleep apnea Smoker Ulcer Unspecified osteoarthritis, unspecified site Surgical History Surgical History H/O inguinal hernia repair (~2018) History of arthroscopic knee surgery 09/2019 - Right knee meniscus repair History of bladder repair surgery (~2002) History of cholecystectomy (~2011) History of colon resection (~2018) History of discectomy L5 2002 History of hernia repair (~2018) History of knee surgery (~03/2020) History of partial colectomy (~08/2017) 08/24 History of sinus surgery (~2016) History of tonsillectomy (~04/2011) 04/2011 Hx of colostomy (~08/17/17) 08/17/2017 Family History Family History Father Arthritis Other Heart disease Social History Social History Smoking packs per day: 1.5 Smoking cigarettes per day: 30.0 Years smoked: 30 Smoking pack-years: 45.00 Smoking status: Current every day smoker Tobacco type: cigarettes Second hand tobacco smoke exposure: Yes Alcohol intake: current Drinks per week: 2 Substance use: never Substance use type: does not use Gender identity (if verbalized by the patient): Male Spiritual care concerns: No Exam Const: General: alert and ill appearing Other: moderate distress, diaphoretic HENMT: Head: normal to inspection Resp: Effort & Inspection: tachypneic Cardio: Rate: tachycardic Rhythm: regular rhythm GI: Inspection: distended GI Palp: Yes Tenderness to palpation present (GI), Yes Guarding due to palpation present (GI) and No Rebound tenderness present : Testes: Testes normal Skin: Other: diaphoretic Neuro: General: patient oriented x3 and moves all extremities Speech: normal speech Extrem: General: no edema Psych: Affect: Anxious affect present (agitated) Procedures Intubation Intubation #1: sedative: Etomidate Mg Given: 20 paralytic: Rocuronium Mg Given: 50 Laryngoscope: fiber optic video scope Tube Size (cm): Cuffed Method of Intubation: orotracheal Number of Atte
--- NOTE | 2020-09-04 02:11 | ECG_ITS ---
Measurements Intervals [place] Rate: 62 P: 28 IN: 139 QRS: -48 QRSD: 80 T: 52 QT: 362 QTc: 368 Interpretive Statements SINUS RHYTHM LOW QRS VOLTAGE IN LIMB LEADS POOR R WAVE PROGRESSION, ANTERIOR LEADS INFERIOR INFARCT, AGE INDETERMINATE BASELINE ARTIFACT- II, III, AVR, AVF, V3-V6 ABNORMAL ECG Electronically Signed On 09-04-2020 6:45:24 CDT by Noel Barrera D.O.
[2020-09-04] MEDS: SODIUM CHLORIDE 0.9% IV 1,000 ML 999 ML IV CONT ×4 (02:33→23:25)
[2020-09-04] MEDS: MORPHINE SULFATE (*CRX) 4 MG/ML INJ IV PUSH (02:34)
[2020-09-04] MEDS: ONDANSETRON INJ 4 MG/2 ML VIAL IV PUSH (02:34)
--- NOTE | 2020-09-04 02:52 | PC.NURSE ---
Pt to CT at this time.
[2020-09-04 02:59] LABS: Estimated CRCL calculation 62 ml/min; Estimated Glomerular Filt Rate 45
[2020-09-04 03:02] LABS: Basophils Percent Auto 0.3 % (0.2-1.2); Eosinophils Absolute Auto 0.1 K/mm3 (0-0.3); Eosinophils Percent Auto 0.7 % (0-4.4); Hematocrit 51.9 % (42.0-52.0); Hemoglobin 16.9 g/dL (14.0-18.0); Immature Granulocyte Absolute 0.02 K/mm3 (0.00-0.031); Immature Granulocyte Percent A 0.2 % (0-0.5); Lymphocytes Absolute Auto 1.22 K/mm3 (0.9-3.2); Lymphocytes Percent Auto 13.8 % (18.3-44.2); Mean Corpuscular HGB Conc 32.6 g/dl (32-36); Mean Corpuscular Hemoglobin 30.6 pg (26-34); Mean Platelet Volume 11.6 fl (7.4-10.4); Monocytes Absolute Auto 0.1 K/mm3 (0.1-0.6); Monocytes Percent Auto 1.4 % (2.6-8.5); Neutrophils Absolute Auto 7.4 K/mm3 (1.3-6.7); Neutrophils Percent Auto 83.6 % (45.5-73.1); Platelet Count Result 331 k/mm3 (150-375); Red Blood Count 5.52 M/mm3 (4.6-6.20); Red Cell Distribution Width 13.9 % (11.5-14.5); White Blood Count 8.8 K/mm3 (4.5-10.0)
[2020-09-04 03:18] LABS: Lactic Acid Reflex 3.1 mmol/L (0.7-2.1)
[2020-09-04 03:21] LABS: INR 0.9; Prothrombin Time 12.2 Seconds (11.1-14.7)
[2020-09-04 03:22] LABS: Alanine Aminotransferase 27 U/L (4-50); Albumin Level 4.3 g/dL (3.5-5.1); Alkaline Phosphatase 116 U/L (38-126); Anion Gap 13 mmol/L (8-16); Aspartate Amino Transferase 33 U/L (17-59); Bilirubin,Total 1.1 mg/dL (0.2-1.3); Blood Urea Nitrogen 19 mg/dL (9-20); Calcium 9.2 mg/dL (8.4-10.2); Carbon Dioxide 23 mmol/L (22-30); Chloride 104 mmol/L (98-107); Estimated CRCL calculation 62 ml/min; Estimated Glomerular Filt Rate 45; Glucose 172 mg/dL (65-110); Partial Thromboplastin Time 24.8 SECONDS (22.3-36.8); Potassium 3.8 mmol/L (3.4-5.0); Sodium 140 mmol/L (137-145)
[2020-09-04 03:28] LABS: Troponin I < 0.012 ng/mL (0.000-0.034)
--- NOTE | 2020-09-04 03:39 | PC.NURSE ---
Pt unable to tolerate NG insertion at this time. ERP aware.
[2020-09-04 03:40] LABS: CRP 2.7 mg/dL (<1.0)
[2020-09-04] MEDS: LORazepam INJ (*CRX) 2 MG/ML VIAL 1 MG IV PUSH (03:49)
--- NOTE | 2020-09-04 03:54 | PC.NURSE ---
RN in room for Ativan administration per ERP order prior to NG insertion. Pt heart rate elevated to 210, 190, and 170 for short durations and then returned to a heart rate just above parameters. ERP made aware immediately, crash cart at bedside.
--- NOTE | 2020-09-04 04:13 | PC.NURSE ---
Pt placed on 15 L non-rebreather at this time. O2 sat had been dropping to 87%-89%. O2 sat at 99% at this time.
[2020-09-04] MEDS: LORazepam INJ (*CRX) 2 MG/ML VIAL IV PUSH (04:33)
--- NOTE | 2020-09-04 04:45 | PC.NURSE ---
Verbal consent from patient and significant other on intubation to maintain pt airway.
--- NOTE | 2020-09-04 04:49 | PC.NURSE ---
Pt intubated by Dr. Bond. Respiratory at bedside. 0451 20 mg Etomidate given IV push by JEREMY Martin 0452 50 mg Rocuronium given IV push by JEREMY Martin 0453 ET tube placed by VU Bond size 8 measuring at 26 at the lip.
--- NOTE | 2020-09-04 05:00 | PC.NURSE ---
18 F OG placed at this time.
--- NOTE | 2020-09-04 05:04 | PC.NURSE ---
Rn attempted to contact Patel - father @ [phone] per Daughter in law request.
--- NOTE | 2020-09-04 05:09 | PC.NURSE ---
100 mcg fentanyl to be administered at this time per verbal read back order of ERP.
--- NOTE | 2020-09-04 05:12 | PC.NURSE ---
Verbal order read back ERP Varun propofol drip @ 5 mcg/kg/min at rate of 3.7 ml/hr. Titrate until pt is sedated.
--- NOTE | 2020-09-04 05:50 | PM.IMHP ---
H&P: HPI History of Present Illness Date/Time: 09/04/20 05:50 55 y/o M presented to ED c/o severe abd pain, N/V. Pt presented very combative, confused, hypoxic, septic. Pt has since been intubated. All history obtained via chart. Pt c h/o perforated diverticulitis x 2, multiple surgeries at [facility]. Chief Complaint: perforated viscus Review of Systems Review of Systems: ROS unobtainable: Yes unobtainable due to endotracheal tube, unobtainable due to medical condition and unobtainable due to mental status [facility] Past Medical History Medical History Anxiety Arthritis Chronic low back pain without sciatica Decreased hearing of right ear Degenerative disc disease Depression Diverticulitis Dyslipidemia Environmental allergies Essential (primary) hypertension Fatty liver GERD (gastroesophageal reflux disease) GERD without esophagitis Hemorrhoids History of anesthesia reaction History of diverticulitis Hypogonadism male Insomnia LIBRA (obstructive sleep apnea) Prediabetes Prostatitis Sleep apnea Smoker Ulcer Unspecified osteoarthritis, unspecified site Surgical History Surgical History H/O inguinal hernia repair (~2018) History of arthroscopic knee surgery 09/2019 - Right knee meniscus repair History of bladder repair surgery (~2002) History of cholecystectomy (~2011) History of colon resection (~2018) History of discectomy L5 2002 History of hernia repair (~2018) History of knee surgery (~03/2020) History of partial colectomy (~08/2017) 08/24 History of sinus surgery (~2016) History of tonsillectomy (~04/2011) 04/2011 Hx of colostomy (~08/17/17) 08/17/2017 Family History Family History Father Arthritis Other Heart disease Social History Social History Smoking packs per day: 1.5 Smoking cigarettes per day: 30.0 Years smoked: 30 Smoking pack-years: 45.00 Smoking status: Current every day smoker Tobacco type: cigarettes Second hand tobacco smoke exposure: Yes Alcohol intake: current Drinks per week: 2 Substance use: never Substance use type: does not use Gender identity (if verbalized by the patient): Male Spiritual care concerns: No Meds Home Medications and Allergies Home Medications Medication Instructions Recorded Confirmed Type trazodone 50 mg tablet 50 mg PO HS #90 tablet 05/27/20 08/21/20 Rx famotidine 40 mg tablet 40 mg PO DAILY #90 tablet 05/29/20 08/21/20 Rx testosterone cypionate 200 mg/mL 200 mg IM MONTHLY #3 vial 05/29/20 08/21/20 Rx intramuscular oil sertraline 50 mg tablet 50 mg PO BID tablet 07/03/20 08/21/20 History lisinopril 10 1 tablet PO DAILY #90 tablet 07/28/20 08/21/20 Rx mg-hydrochlorothiazide 12.5 mg tablet simvastatin 20 mg tablet 20 mg PO QHS #90 tablet 07/28/20 08/21/20 Rx Allergies Allergy/AdvReac Type Severity Reaction Status Date / Time No Known Allergies Allergy Verified 09/04/20 02:27 Vital Signs Vital Signs - 24 hr 09/04/20 02:09 09/04/20 02:17 09/04/20 02:32 Temperature 36.4 C Pulse Rate 84 85 87 Respiratory Rate 21 H 18 14 Blood Pressure 117/70 115/64 133/77 Pulse Oximetry 91 92 09/04/20 03:17 09/04/20 03:34 09/04/20 03:47 Temperature Pulse Rate 105 H 113 H 118 H Respiratory Rate 20 40 H 28 H Blood Pressure 123/78 139/78 140/77 Pulse Oximetry 90 94 99 09/04/20 04:02 09/04/20 05:24 Temperature Pulse Rate 125 H 115 H Respiratory Rate 35 H Blood Pressure 133/79 Pulse Oximetry 91 94 Exam Const: General: acute distress and ill appearing Nutritional Appearance: obese HENMT: Head: normal to inspection, normocephalic and atraumatic General nose exam: Normal external nose present Face and sinus: normal facial exam Eyes: General: appearance normal, both eyes and all
[2020-09-04 05:57] LABS: Reflex Lactic Acid Yes or No Add Lactic
--- NOTE | 2020-09-04 05:58 | PC.NURSE ---
EVARISTO Bond to administer 100 mcg fentanyl IVP
[2020-09-04] MEDS: NOREPINEPHRINE 8 MG/D5W 250 ML 8 MG/250 ML BAG 9.38 MG IV CONT (06:00)
--- NOTE | 2020-09-04 06:00 | PC.NURSE ---
Delay in pt transport to OR due to hypotensive episodes.
--- NOTE | 2020-09-04 06:02 | WPDANESEPPF ---
Anes - Initial Pre Proc Eval Procedure: Operation Date: 09/04/20 06:30 Proposed Procedures p Exploratory Laparotomy, Pos Bowel Resec - Imani Adame MD Date/Time: 09/04/20 06:02 Surgeon: Imani Adame MD Pre Op Diagnosis: abd pain Patient Data Age: 55 Gender: M Height: 1.83 m Weight: 122.8 kg Last Vital Signs Temp 36.4 C 09/04/20 02:09 Pulse 133 H 09/04/20 05:35 Resp 17 09/04/20 05:35 BP 137/72 09/04/20 05:35 Pulse Ox 97 09/04/20 05:35 Allergies Allergy/AdvReac Type Severity Reaction Status Date / Time No Known Allergies Allergy Verified 09/04/20 02:27 Home Medications Medication Instructions Recorded Confirmed Type trazodone 50 mg tablet 50 mg PO HS #90 tablet 05/27/20 08/21/20 Rx famotidine 40 mg tablet 40 mg PO DAILY #90 tablet 05/29/20 08/21/20 Rx testosterone cypionate 200 mg/mL 200 mg IM MONTHLY #3 vial 05/29/20 08/21/20 Rx intramuscular oil sertraline 50 mg tablet 50 mg PO BID tablet 07/03/20 08/21/20 History lisinopril 10 1 tablet PO DAILY #90 tablet 07/28/20 08/21/20 Rx mg-hydrochlorothiazide 12.5 mg tablet simvastatin 20 mg tablet 20 mg PO QHS #90 tablet 07/28/20 08/21/20 Rx Laboratory Tests 09/04/20 09/04/20 09/04/20 02:50 02:50 02:50 WBC 8.8 K/mm3 K/mm3 (4.5-10.0) RBC 5.52 M/mm3 M/mm3 (4.6-6.20) Hgb 16.9 g/dL g/dL (14.0-18.0) Hct 51.9 % % (42.0-52.0) MCV 94.0 fl fl (80-100) MCH 30.6 pg pg (26-34) MCHC 32.6 g/dl g/dl (32-36) RDW 13.9 % % (11.5-14.5) Plt Count 331 k/mm3 k/mm3 (150-375) MPV 11.6 fl H fl (7.4-10.4) Immature Gran % (Auto) 0.2 % % (0-0.5) Neut % (Auto) 83.6 % H % (45.5-73.1) Lymph % (Auto) 13.8 % L % (18.3-44.2) [place] % (Auto) 1.4 % L % (2.6-8.5) Eos % (Auto) 0.7 % % (0-4.4) Baso % (Auto) 0.3 % % (0.2-1.2) Lymph # (Auto) 1.22 K/mm3 K/mm3 (0.9-3.2) [place] # (Auto) 0.1 K/mm3 K/mm3 (0.1-0.6) Eos # (Auto) 0.1 K/mm3 K/mm3 (0-0.3) Baso # (Auto) 0.0 K/mm3 K/mm3 (0.0-0.1) Abs Immat Gran (auto) 0.02 K/mm3 K/mm3 (0.00-0.031) Absolute Neuts (auto) 7.4 K/mm3 H K/mm3 (1.3-6.7) Absolute Nucleated RBC 0.0 K/mm3 K/mm3 (0.0-0.012) Nucleated RBC % 0.0 % % (0.0-0.2) PT 12.2 Seconds Seconds (11.1-14.7) INR 0.9 APTT 24.8 SECONDS SECONDS (22.3-36.8) Sodium 140 mmol/L mmol/L (137-145) Potassium 3.8 mmol/L mmol/L (3.4-5.0) Chloride 104 mmol/L mmol/L (98-107) Carbon Dioxide 23 mmol/L mmol/L (22-30) Anion Gap 13 mmol/L mmol/L (8-16) BUN 19 mg/dL mg/dL (9-20) Creatinine 1.60 mg/dL H mg/dL (0.7-1.3) Estim Creat Clear Calc 62 ml/min ml/min Estimated GFR 45 L (59 - ) Glucose 172 mg/dL H mg/dL (65-110) Lactic Acid Calcium 9.2 mg/dL mg/dL (8.4-10.2) Total Bilirubin 1.1 mg/dL mg/dL (0.2-1.3) AST 33 U/L U/L (17-59) ALT 27 U/L U/L (4-50) Alkaline Phosphatase 116 U/L U/L (38-126) Troponin I < 0.012 ng/mL ng/mL (0.000-0.034) C-Reactive Protein 2.7 mg/dL H mg/dL (<1.0) Total Protein 7.0 g/dL g/dL (6.3-8.2) Albumin 4.3 g/dL g/dL (3.5-5.1) Urine Color Urine Appearance Urine pH Ur Specific [place] Urine Protein Urine Glucose (UA) Urine Ketones Ur Blood (Man) Urine Nitrate Urine Bilirubin Urine Urobilinogen Leukocyte Esterase Rfl 09/04/20 09/04/20 09/04/20 02:50 02:57 05:26 WBC RBC Hgb Hct MCV MCH MC
[2020-09-04 06:04] LABS: Add Urine Microscopic? YES; Appearance Urine Clear (Clear); Bacteria Urine Trace /hpf; Bilirubin Urine Negative (Negative); Blood Urine Negative (Negative); Color Urine Amber (Yellow); Glucose Urine UA Negative (Negative); Hyaline Casts Urine 15-19 /lpf; Ketones Urine Negative (Negative); Leukocyte Esterase Ur Negative LEU/UL (Negative); Mucus Urine Rare /lpf; Nitrate Urine Negative (Negative); Protein Urine 2+ mg/dL (Negative)
--- NOTE | 2020-09-04 06:11 | WPDHPUPDATE1 ---
History and Physical Update Update Date/Time: 09/04/20 06:11 History and Physical has been reviewed, including an updated exam of the patient. There are NO changes in the patient's condition. Risks, benefits, and alternatives have been discussed and questions answered. Patient agrees to proceed with procedure.
[2020-09-04 06:18] LABS: Specific Grav Ur > 1.060 (1.001-1.035)
--- NOTE | 2020-09-04 06:22 | PC.NURSE ---
Pt emergently taken to OR by OR team. Blood consent tubed to OR.
--- NOTE | 2020-09-04 06:42 | PC.NURSE ---
Report given to Zhanna in the OR at 0554. Pt to go to surgery bossman.
--- NOTE | 2020-09-04 06:55 | PC.NURSE ---
ERP to call family member at this time.
[2020-09-04 07:11] LABS: Alveolar/Arterial O2 Gradient 512.9 mmHg; Fractional Inspired Oxygen 100 %; HCO3 ABG 19.9 mEq/l (22.0-26.0); Oxygen Content ABG 20.3 %vol (16.0-22.0); Oxygen Saturation ABG 98.5 % (95.0-100.0); Oxyhemoglobin 95.2 % THb (90.0-100.0); PCO2 ABG 49.8 mmHg (35.0-45.0); PO2 ABG 150.3 mmHg (80.0-100.0)
[2020-09-04 07:15] LABS: Device IN OR/PER ANESTHESIA
--- NOTE | 2020-09-04 07:23 | WPDANESCVCPN ---
Anes - Cent Venous Cath Note Consent: its clinical necessity/indication and a) the need to proceed with central venous catheter insertion as an important element of the patient's clinical management given emergent patient conditions, temporal constraints may have precluded informed consent. Time-Out: A pre-procedural Time-Out was completed immediately before starting the procedure and confirmed: Patient Identification, Site, Procedure, Patient Position and the Availability of Requisite Equipment. Procedure Note Patient position: trendelenburg Central venous catheter insertion site: right internal jugular CVC method of insertion: ultrasound-guided Hand hygiene/Aseptic technique: Hand hygiene procedures were performed. Aseptic technique was maintained throughout the procedure. Sterile barrier precautions: Maximal sterile barrier precautions, including use of a cap, mask, sterile gown, sterile gloves and a sterile full body drape. Site prep: chlorhexidine Skin anesthesia: placed under general anesthesia Tamazight: 7 Lumen: 3 Length (cm): 15 cm (16cm) Depth of insertion (cm): 15 Closure/Dressing: suture, biopatch and tegaderm Complications: None immediately noted/suspected. Chest X Ray: Ordered/review to follow.
--- NOTE | 2020-09-04 07:27 | SUR.OPER ---
All ABG results to anesthesia per Lily Layton RN [id number]
--- NOTE | 2020-09-04 07:48 | WPDANESACPN ---
Arterial Cath Proc Note Consent: I have discussed with the patient/family/POA, the non-emergent placement of an arterial catheter, including its clinical necessity/indication and associated potential risks and complications. The patient/family/POA and/or understand(s) and acknowledge(s) the need to proceed with the arterial catheter insertion as an important element of the patient's clinical management. Given emergent patient conditions, temporal constraints may have precluded informed consent. Time-Out: A pre-procedural Time-Out was completed immediately before starting the procedure and confirmed: Patient Identification, Site, Procedure, Patient Position and the Availability of Requisite Equipment. Procedure Note Problems: Hypotension Patient position: supine Insertion site: left radial Method of insertion: surface landmarks Telephone Installer prep: sterile gloves, mask and hat Site prep: chlorahexadine Skin anesthesia: general anesthesia Gauge: 20 gauge Length (cm): 4.4 cm Closure/Dressing: antimicrobial disc and tegaderm Complications: None immediately noted/suspected.
--- NOTE | 2020-09-04 08:14 | PC.NURSE ---
Wallet and phone found in ER room after patient departed for surgery. Both given to OR staff.
[2020-09-04] MEDS: MIDAZOLAM 100MG/NS 100ML(*CRX) 100 MG/100 ML BAG IV CONT (09:30)
[2020-09-04] MEDS: FENTANYL 2,500MCG/NS250ML(*CRX 2,500 MCG/250 ML BAG IV CONT (09:30)
--- NOTE | 2020-09-04 10:03 | W.PM.PROC2 ---
Procedure Note - Detailed Date of Procedure 09/04/20 Pre-op Diagnosis sepsis, perforated viscus, multiple incarcerated incisional hernia, right sided pneumothorax Post-op Diagnosis same Procedure Performed Exploratory laparotomy, extensive lysis of adhesions approximately 90 minutes, reduction multiple incarcerated incisional hernias times 8, repair of enterotomy, abdominal washout, placement of greater than 50 sq cm abthera wound vac, placement of 28 [place] right chest tube Surgeon Imani Adame MD Mold Stacker Kee Black Anesthesia general Indications 55-year-old male presented to emergency department with sepsis, acute respiratory failure, perforated viscus. Patient with extensive surgical history with multiple abdominal procedures, known hernias, wound infections. Findings Multiple incarcerated incisional hernias with noted small-bowel obstruction, small-bowel enterotomy in proximal ileum Description of Procedure The patient was taken to the operating room and placed in the supine position. After adequate induction of general anesthesia, the patient was prepped and draped in the normal sterile fashion. A time-out was then done to verify the patient's identity, as well as the procedure being performed. I began by making a generous midline incision, a going through his previous scar. It was noted immediately that the patient did not have much midline fascia and this was a large midline hernia. Upon entering the abdomen, there was noted to be a moderate to large amount of free fluid, including some feculent material. An extensive adhesion lysis was performed to gain access into the abdomen through the midline. It was noted that the small intestine was very dilated. The midline abdominal wall overlying the bowel was largely hernia sac. Upon getting into through the midline, it was noted that the patient had multiple further incisional hernias laterally. There was approximately 4 on the right side and 3 on the left side. All these hernias contained small intestine that was incarcerated. I then did an extensive lysis of adhesions to reduce these hernias, as well as to run the entire small intestine. Upon reduction of a hernia in the right lower quadrant, there was noted to be some feculent material. There was noted to be a enterotomy in this area of small intestine, which was noted to be the proximal ileum. This was not a large perforation and I was able to close this area primarily. After reduction of all hernias and an extensive lysis of adhesions of approximately 90 minutes, I was able to run the entirety of the small intestine. The small intestine was noted to be very dilated throughout transitioning to normal caliber bowel at the area of the terminal ileum. No other perforation or ischemia was noted. I then proceeded to free up the colon. The cecum was unremarkable, as was the right colon. The transverse colon looked to be anastomosed to the distal sigmoid. No pathology was noted in these areas. I then obtained an intraoperative consult with Dr. Black for 2nd opinion. It was agreed that no further pathology was identified. I then placed an omental patch over our enterotomy repair in the proximal ileum. I then copiously washed out the abdomen with normal saline. Given the amount of contamination and the instability of the patient, the decision was made to place an abthera wound VAC. The ABThera wound VAC was cut to fit and placed accordingly into the abdominal cavity. I did ensure that all hernias were covered by the VAC. It was noted this point that the patient had a sudden drop in both his oxygen saturations and his blood pressure. The patient also became very tachycardic. The patient had increased pressor requirements. The patient had previously had a right internal jugular triple-lumen catheter placed emergently and once anesthesia auscultated his right lung field they felt he had a pneumothorax. I emergently placed a 28 Frenc
--- NOTE | 2020-09-04 10:41 | WPDCNINT ---
Assessment and Plan Assessment and plan (1) Acute hypoxemic respiratory failure: Code(s): J96.01 - Acute respiratory failure with hypoxia Status: Acute Assessment and Plan: Secondary to sepsis, questionable aspiration pneumonia, atelectasis, right pneumothorax Continue full mechanical ventilation support to prevent hypoxemia/hypercarbia and end organ damage. ABG and PCXR reviewed tidal volume change to 450 PEEP changed to 8 rate change to 20 repeat ABG chest tube to -20 wall suction Will attempt SBT when ready to wean. empiric Zosyn (2) Bowel perforation: Code(s): K63.1 - Perforation of intestine (nontraumatic) Status: Acute Assessment and Plan: status post Exploratory laparotomy, extensive lysis of adhesions approximately 90 minutes, reduction multiple incarcerated incisional hernias times 8, repair of enterotomy, abdominal washout, placement of greater than 50 sq cm abthera wound vac, NPO IV Zosyn (3) Hernia with strangulation: Code(s): K46.0 - Unspecified abdominal hernia with obstruction, without gangrene Status: Acute Assessment and Plan: Status post ex lap and reduction (4) Septic shock: Code(s): A41.9 - Sepsis, unspecified organism; R65.21 - Severe sepsis with septic shock Status: Acute Assessment and Plan: patient received 2 L saline bolus in the ED and and additional bolus in the OR. Continue IV fluids continue Levophed check lactic acid level now cultures Zosyn as above-mentioned (5) Pneumothorax on right: Code(s): J93.9 - Pneumothorax, unspecified Status: Acute Assessment and Plan: status post chest tube placement by general surgery chest tube to wall suction -20 no air leak repeat chest x-ray shows re-expansion of lung Additional Plan DVT prophylaxis - Lovenox Stress ulcer prophylaxis - PPI Nutrition - NPO Code Status - Full Code Total Critical Care Time - 40 minutes Due to a high probability of clinically significant, life threatening deterioration, the patient required my highest level of preparedness to intervene emergently and I personally spent this critical care time directly and personally managing the patient. This critical care time included obtaining a history; examining the patient; pulse oximetry; ordering and review of studies; arranging urgent treatment with development of a management plan; evaluation of patient's response to treatment; frequent reassessment; and discussions with other providers. It was exclusive of separately billable procedures and treating other patients and teaching time. Please see Assessment and Plan section and the rest of the note for further information on patient assessment and treatment Medical Genetics Director Consult Note Consult date: 09/04/20 Time Seen: 10:20 HPI: Dandy Carias is a 55 year old male with h/o perforated diverticulitis presents to the ED c/o abdominal pain. Severe generalized abdominal pain for the past 4 hours prior tp presentation. Associated with nausea and vomiting. He has had 2 previous surgeries for perforated diverticulitis in the past at [place]. In ED CT Showed IMPRESSION: 1. Small bowel obstruction with multiple mildly dilated loops of fluid-filled small bowel, potentially multifocal with several transition points where the bowel is focally decompressed and angulated where it enters or exhibits a few of multiple ventral hernias sacs. 2. Small amount of ascites and scattered free intraperitoneal gas consistent with perforated viscus and raising concern for small bowel incarceration with ischemia. 3. Diffuse hepatic steatosis. 4. Small bilateral fat-containing inguinal hernias. in ED patient was hypoxic and confused. he was given IV fluid bolus, intubated general surgery was consulted. Patient was emergently taken to OR. A right IJ central venous catheter and left radial art line was placed. patient underwent Exploratory laparoto
[2020-09-04 11:08] LABS: Alveolar/Arterial O2 Gradient 506.9 mmHg; Base Excess ABG -12.7 mEq/l (+/-2.0); Fractional Inspired Oxygen 90 %; HCO3 ABG 18.1 mEq/l (22.0-26.0); Oxygen Content ABG 21.2 %vol (16.0-22.0); Oxygen Saturation ABG 87.8 % (95.0-100.0); Oxyhemoglobin 86.7 % THb (90.0-100.0); PO2 ABG 72.5 mmHg (80.0-100.0); PO2 FiO2 Ratio Arterial Blood 0.81 %; Total Hemoglobin 17.4 g/dL (12.0-18.0)
[2020-09-04 11:11] LABS: PCO2 ABG 60.8 mmHg (35.0-45.0); Site Drawn ARTLINE; pH ABG 7.091 (7.350-7.450)
[2020-09-04 11:12] LABS: Arterial Blood Gas PEEP 8 cmH2O; Arterial Blood Gas Tidal Volume 450 ml; Arterial Blood Gas Vent Mode CMV; Arterial Blood Gas Ventilator rate 20 /MIN; Device VENTILATOR
--- NOTE | 2020-09-04 11:23 | PM.EVENT ---
Event Note Event Note Event Note: patient had low saturation in the 80s. ABG reviewed. tidal volume increased to 500 respiratory increased to 30 and peep increased to 10 chest x-ray was repeated and reviewed. Tube is in acceptable position. Acceptable position. no pneumothorax seen. radiology report pending patient central venous catheter is in brachiocephalic vein. All 3 ports were checked and they draw and flush. Continue central venous catheter this time. It appears that 16 cm catheter was used and placed high up in the neck hence tip terminated in brachiocephalic vein. since it is providing central access and blood draws will continue using at this point.
[2020-09-04] MEDS: SODIUM BICARBONATE 8.4% 50 MEQ/50 ML SYRINGE 100 MEQ IV PUSH ×4 (11:29→23:15)
[2020-09-04] MEDS: VASOPRESSIN INJ 100 UNITS in DEXTROSE 5% 95 ML IV CONT (11:46)
[2020-09-04 11:57] LABS: Lactic Acid Reflex 6.5 mmol/L (0.7-2.1)
[2020-09-04] MEDS: EPINEPHrine INJ 1 MG in DEXTROSE 5% IN WATER 250 ML 15.06 MG IV CONT (12:23)
[2020-09-04] MEDS: SODIUM CHLORIDE 0.9% IV 1,000 ML 100 ML IV CONT (13:02)
[2020-09-04] MEDS: HYDROCORTISONE SODIUM SUCCINATE 100 MG/2 ML VIAL IV PUSH ×2 (13:02→21:03)
--- NOTE | 2020-09-04 13:16 | WPDPROCEDUR ---
Procedures Arterial Line Arterial Line Date: 09/04/20 Arterial Line Time: 12:00 Discussed with the patient/family/POA, the placement of an arterial catheter, including its clinical necessity/indication and associated potential risks, benefits and alternatives.: Yes Patient/family/POA and/or understands and acknowledges the need to proceed with the arterial catheter insertion as an important element of the patient's clinical management.: Yes Perfomed Emergently - Given emergent patient conditions, temporal constraints may have precluded informed consent: Yes Time Out Performed: Yes Patient Position: supine Livestock Yard Attendant Prep: sterile gown, sterile gloves, mask and hat Site: right Site Prep: chlorhexidine and sterile drape Technique used: ultrasound-guided Length: 12 cm Closure/Dressing: suture and transparent dressing Patient tolerated procedure: well Complications: none Additional comments: Patient had radial arterial line which was not working with poor waveform. patient was in shock on multiple vasopressors. Verbal consent was obtained from patient's sister who was at bedside. Procedure performed emergently to allow accurate monitoring of blood pressure
--- NOTE | 2020-09-04 14:59 | PM.EVENT ---
Event Note Event Note Event Note: patient continues to be hypotensive. Patient was given another 1 L saline bolus. 2 amps of bicarb was given to the patient. Patient was also started on epinephrine infusion. Requested nurse to remove radial arterial line when able to. Will repeat CBC ABG BMP Mag and lactic acid level. I spoke to patient's sister at bedside and updated her with patient's current condition, critical nature of his illness and guarded prognosis. She told me that he had perforated diverticulitis leading to exploratory laparotomy and colostomy in 2018 and then later had another surgery to reverse this colostomy. His 1st surgery was also emergent and was complicated she denied any history of inflammatory bowel disease. She did mention that he had difficulty with wound healing requiring debridement after past surgeries. Patient is and does not have any biological children. She and patient's dad are next of kin for him at this time Additional critical care time 35 minutes
[2020-09-04 15:07] LABS: Alveolar/Arterial O2 Gradient 588.9 mmHg; Base Excess ABG -13.1 mEq/l (+/-2.0); Fractional Inspired Oxygen 100 %; Oxygen Content ABG 20.7 %vol (16.0-22.0); Oxygen Saturation ABG 94.7 % (95.0-100.0); Oxyhemoglobin 93.5 % THb (90.0-100.0); PCO2 ABG 36.6 mmHg (35.0-45.0); PO2 ABG 87.5 mmHg (80.0-100.0); PO2 FiO2 Ratio Arterial Blood 0.88 %; Total Hemoglobin 15.7 g/dL (12.0-18.0)
[2020-09-04 15:10] LABS: pH ABG 7.201 (7.350-7.450)
[2020-09-04 15:11] LABS: Arterial Blood Gas PEEP 10 cmH2O; Arterial Blood Gas Tidal Volume 500 ml; Arterial Blood Gas Vent Mode CMV; Arterial Blood Gas Ventilator rate 30 /MIN; Device VENTILATOR; Site Drawn ARTLINE
[2020-09-04 15:27] LABS: Basophils Percent Auto 0.3 % (0.2-1.2); Eosinophils Percent Auto 0.5 % (0-4.4); Hematocrit 49.9 % (42.0-52.0); Hemoglobin 15.5 g/dL (14.0-18.0); Immature Granulocyte Absolute 0.04 K/mm3 (0.00-0.031); Immature Granulocyte Percent A 0.5 % (0-0.5); Lymphocytes Absolute Auto 0.65 K/mm3 (0.9-3.2); Lymphocytes Percent Auto 8.5 % (18.3-44.2); Mean Corpuscular HGB Conc 31.1 g/dl (32-36); Mean Corpuscular Hemoglobin 30.5 pg (26-34); Mean Corpuscular Volume 98.2 fl (80-100); Mean Platelet Volume 11.9 fl (7.4-10.4); Monocytes Absolute Auto 0.3 K/mm3 (0.1-0.6); Monocytes Percent Auto 3.3 % (2.6-8.5); Neutrophils Absolute Auto 6.6 K/mm3 (1.3-6.7); Neutrophils Percent Auto 86.9 % (45.5-73.1); Nucleated Red Blood Cells Perc 0.3 % (0.0-0.2); Platelet Count Result 256 k/mm3 (150-375); Red Blood Count 5.08 M/mm3 (4.6-6.20); Red Cell Distribution Width 14.6 % (11.5-14.5); White Blood Count 7.6 K/mm3 (4.5-10.0)
[2020-09-04 15:38] LABS: Anion Gap 13 mmol/L (8-16); Blood Urea Nitrogen 24 mg/dL (9-20); Calcium 6.5 mg/dL (8.4-10.2); Carbon Dioxide 18 mmol/L (22-30); Chloride 110 mmol/L (98-107); Estimated CRCL calculation 50 ml/min; Estimated Glomerular Filt Rate 35; Glucose 175 mg/dL (65-110); Magnesium 1.3 mg/dL (1.6-2.3); Potassium 3.7 mmol/L (3.4-5.0); Sodium 141 mmol/L (137-145)
[2020-09-04 15:43] LABS: Lactic Acid Reflex 8.2 mmol/L (0.7-2.1)
[2020-09-04 15:47] LABS: Glucose Point of Care 165 mg/dl (65-105)
[2020-09-04] MEDS: CENTRAL LINE FLUSH 10 ML IV PUSH ×3 (15:51→21:04)
[2020-09-04] MEDS: SODIUM CHLORIDE 0.9% IV 500 ML IV CONT ×2 (16:02→17:28)
[2020-09-04] MEDS: SODIUM BICARBONATE 8.4% 100 MEQ in WATER, STERILE FOR INJECTION 1,000 ML IV CONT (16:11)
[2020-09-04] MEDS: EPINEPHrine INJ 1 MG in DEXTROSE 5% IN WATER 250 ML 150.6 MG IV CONT (17:35)
[2020-09-04] MEDS: MAGNESIUM SULF 2 GM/WATER 50ML 2 GM/50 ML BAG IVPB ×2 (17:38→23:09)
[2020-09-04 17:53] LABS: Alveolar/Arterial O2 Gradient 578.9 mmHg; Base Excess ABG -10.8 mEq/l (+/-2.0); Fractional Inspired Oxygen 100 %; HCO3 ABG 16.1 mEq/l (22.0-26.0); Oxygen Content ABG 19.9 %vol (16.0-22.0); Oxyhemoglobin 94.8 % THb (90.0-100.0); PCO2 ABG 39.2 mmHg (35.0-45.0); PO2 ABG 94.9 mmHg (80.0-100.0); PO2 FiO2 Ratio Arterial Blood 0.95 %; Total Hemoglobin 14.9 g/dL (12.0-18.0)
[2020-09-04 17:55] LABS: Arterial Blood Gas Ventilator rate 30 /MIN; Device VENTILATOR; Site Drawn ARTLINE; pH ABG 7.231 (7.350-7.450)
[2020-09-04 17:56] LABS: Arterial Blood Gas PEEP 10 cmH2O; Arterial Blood Gas Pressure Support 0 cmH2O; Arterial Blood Gas Tidal Volume 500 ml; Arterial Blood Gas Vent Mode CMV
[2020-09-04] MEDS: CALCIUM CHLOR 1,000MG/100ML NS 1,000 MG/100 ML BAG 100 MG IVPB ×2 (18:06→23:33)
[2020-09-04] MEDS: ACETAMINOPHEN 325 MG TABLET 650 MG PO (18:12)
[2020-09-04] MEDS: ALBUMIN HUMAN 5% 25 GM/500 ML BTL IV CONT (18:20)
[2020-09-04 18:24] LABS: Reflex Lactic Acid Yes or No Add Lactic
[2020-09-04] MEDS: NOREPINEPHRINE 8 MG/D5W 250 ML 8 MG/250 ML BAG 93.75 MG IV CONT ×3 (18:27→23:56)
[2020-09-04] MEDS: EPINEPHrine INJ 4 MG in DEXTROSE 5% IN WATER 250 ML 76.2 MG IV CONT ×2 (18:31→21:47)
[2020-09-04] MEDS: INSULIN ASPART (*BKC) 100 UNITS/ML SUB-Q ×2 (19:27→23:07)
[2020-09-04 19:33] LABS: Glucose Point of Care 233 mg/dl (65-105)
[2020-09-04] MEDS: MINERAL OIL/WHITE PETROLATUM OINTMENT 1 APPLIC EACH EYE (20:42)
--- NOTE | 2020-09-04 20:49 | PC.NURSE ---
This patient, Dandy Carias, was admitted to Intensive Care Unit-6. Patient/family oriented to hospital policies and general routines including ID bracelet, bed and alarms, visiting hours, pain management, procedures, bathroom and other care routines, personal items, smoking policy, room service/diet, and visiting hours. Information on how to activate the Rapid Response Team has been discussed. Patient/Family are encouraged to report perceived risks to care and to ask questions if they do not understand what they are told or what they should do.
[2020-09-04 21:01] LABS: Lactic Acid 11.3 mmol/L (0.7-2.1)
[2020-09-04 21:21] LABS: Basophils Percent Auto 0.3 % (0.2-1.2); Eosinophils Percent Auto 0.1 % (0-4.4); Hematocrit 43.1 % (42.0-52.0); Hemoglobin 13.4 g/dL (14.0-18.0); Immature Granulocyte Absolute 0.04 K/mm3 (0.00-0.031); Immature Granulocyte Percent A 0.4 % (0-0.5); Lymphocytes Absolute Auto 0.57 K/mm3 (0.9-3.2); Mean Corpuscular HGB Conc 31.1 g/dl (32-36); Mean Corpuscular Hemoglobin 30.7 pg (26-34); Mean Corpuscular Volume 98.6 fl (80-100); Mean Platelet Volume 12.3 fl (7.4-10.4); Monocytes Absolute Auto 0.4 K/mm3 (0.1-0.6); Monocytes Percent Auto 3.9 % (2.6-8.5); Neutrophils Absolute Auto 8.5 K/mm3 (1.3-6.7); Neutrophils Percent Auto 89.3 % (45.5-73.1); Nucleated Red Blood Cells Absolute Auto 0.1 K/mm3 (0.0-0.012); Nucleated Red Blood Cells Perc 0.6 % (0.0-0.2); Platelet Count Result 202 k/mm3 (150-375); Red Blood Count 4.37 M/mm3 (4.6-6.20); Red Cell Distribution Width 14.6 % (11.5-14.5); White Blood Count 9.5 K/mm3 (4.5-10.0)
[2020-09-04 21:40] LABS: Alanine Aminotransferase 47 U/L (4-50); Albumin Level 2.7 g/dL (3.5-5.1); Alkaline Phosphatase 44 U/L (38-126); Anion Gap 19 mmol/L (8-16); Aspartate Amino Transferase 74 U/L (17-59); Bilirubin,Total 1.3 mg/dL (0.2-1.3); Blood Urea Nitrogen 27 mg/dL (9-20); Calcium 6.8 mg/dL (8.4-10.2); Carbon Dioxide 17 mmol/L (22-30); Chloride 105 mmol/L (98-107); Estimated CRCL calculation 46 ml/min; Estimated Glomerular Filt Rate 31; Glucose 224 mg/dL (65-110); Magnesium 1.6 mg/dL (1.6-2.3); Potassium 3.1 mmol/L (3.4-5.0); Sodium 141 mmol/L (137-145)
[2020-09-04 22:21] LABS: Alveolar/Arterial O2 Gradient 579.1 mmHg; Base Excess ABG -9.5 mEq/l (+/-2.0); Carboxyhemoglobin 0.8 % THb (0-2.0); Fractional Inspired Oxygen 100 %; HCO3 ABG 16.8 mEq/l (22.0-26.0); Methemoglobin ABG 0.3 %THb (0-1.5); Oxygen Saturation ABG 96.4 % (95.0-100.0); Oxyhemoglobin 95.5 % THb (90.0-100.0); PCO2 ABG 38.2 mmHg (35.0-45.0); PO2 ABG 95.7 mmHg (80.0-100.0); PO2 FiO2 Ratio Arterial Blood 0.96 %; Reduced Hemoglobin 3.4 %THb (0-5.0); Total Hemoglobin 13.3 g/dL (12.0-18.0)
[2020-09-04 22:22] LABS: Device VENTILATOR; Site Drawn ARTLINE; pH ABG 7.262 (7.350-7.450)
[2020-09-04 22:23] LABS: Arterial Blood Gas PEEP 10 cmH2O; Arterial Blood Gas Tidal Volume 500 ml; Arterial Blood Gas Vent Mode CMV; Arterial Blood Gas Ventilator rate 30 /MIN
[2020-09-04 23:08] LABS: Glucose Point of Care 218 mg/dl (65-105)
[2020-09-04] MEDS: POTASSIUM CHLORIDE 20 MEQ PACKET (FOR LIQUID) FEED TUBE (23:44)
[2020-09-04] MEDS: ALBUMIN HUMAN 25% 25 GM/100 ML 100 ML IVPB (23:59)
[2020-09-05] VITALS (51 sets, daily range): BP systolic 73–108; BP diastolic 39–57; PULSE 5–119; RESP 27–45; TEMP 38.1–39.6; O2SAT 86–97; BMI 40.6
--- NOTE | 2020-09-05 | ECHO_ITS ---
Patient Info Name: Dandy Carias Age: 55 years : 1965 Gender: Male Ht: 72 in Wt: 299 lbs BSA: 2.68 m2 HR: 107 bpm BP: 89 / 49 mmHg Heart Rhythm: Sinus Rhythm, Tachycardia Technical Quality: Poor Exam Date: 09/05/2020 2:51 PM Exam Location: [facility] Patient Status: Inpatient Admit Date: 09/04/2020 Staff Ordering Physician: Justin Hannah MD Transport Driver: Jyoti Sanders RDCS Attending Provider: Imani Adame MD Exam Type: CA echo dop color flow w con Study Info Indications - SHOCK Complete two-dimensional, color flow and Doppler transthoracic echocardiogram is performed with contrast to opacify the left ventricle and to improve the deliniation of the left ventricle endocardial borders. Contrast/Agitated Saline Contrast/Ag. Saline: Definity Amount: 2.00 ml Reason for Poor Study: patient body habitus Summary 1. Technically very poor quality images because of obesity and mechanical ventilation. 2. Grossly normal appearing left ventricular systolic function was visualized following contrast injection. 3. No pericardial fluid. 4. The Doppler exam demonstrates no significant valvular lesions. Left Ventricle Left ventricular chamber dimension is normal. Left ventricular systolic function is normal, estimated at 65-70%. The left ventricular diastolic function is indeterminate. Right Ventricle Right ventricular chamber dimension is not well visualized. Left Atria Left atrial chamber dimension is normal. Right Atria Right atrial chamber dimension is not well visualized. Aortic Valve The aortic valve is not well visualized. There is no aortic valve stenosis. Pulmonic Valve The pulmonic valve is not well visualized. Mitral Valve The mitral valve has normal leaflets. Tricuspid Valve The tricuspid valve leaflets are not well visualized. Pericardium/Pleural The pericardium appears normal. Aorta The aortic root size at the sinus of Valsalva is not well visualized. Left Ventricular Outflow Tract Name Value Normal LVOT 2D LVOT Diameter 2.28 cm LVOT Doppler LVOT Peak Gradient 7 mmHg LVOT Mean Gradient 4 mmHg LVOT VTI 18.64 cm LVOT VTI/AV VTI Ratio 1.03 LVOT Stroke Volume 76.35 ml LVOT CO 8.19 l/min LVOT CI 3.05 L/min/m2 Pulmonic Valve Name Value Normal RVOT Doppler RVOT Peak Gradient 2 mmHg PV Doppler PV Peak Gradient 5 mmHg Mitral Valve Name Va
[2020-09-05] MEDS: EPINEPHrine INJ 4 MG in DEXTROSE 5% IN WATER 250 ML 76.2 MG IV CONT ×6 (01:24→22:49)
[2020-09-05] MEDS: NOREPINEPHRINE 8 MG/D5W 250 ML 8 MG/250 ML BAG 93.75 MG IV CONT ×8 (02:57→22:50)
[2020-09-05] MEDS: SODIUM BICARBONATE 8.4% 100 MEQ in WATER, STERILE FOR INJECTION 1,000 ML IV CONT ×2 (03:17→14:46)
[2020-09-05 04:56] LABS: Hematocrit 36.5 % (42.0-52.0); Hemoglobin 11.6 g/dL (14.0-18.0); Mean Corpuscular HGB Conc 31.8 g/dl (32-36); Mean Corpuscular Hemoglobin 30.7 pg (26-34); Mean Corpuscular Volume 96.6 fl (80-100); Mean Platelet Volume 12.3 fl (7.4-10.4); Platelet Count Result 119 k/mm3 (150-375); Red Blood Count 3.78 M/mm3 (4.6-6.20); Red Cell Distribution Width 14.6 % (11.5-14.5); White Blood Count 9.9 K/mm3 (4.5-10.0)
[2020-09-05] MEDS: HYDROCORTISONE SODIUM SUCCINATE 100 MG/2 ML VIAL IV PUSH ×3 (05:06→22:51)
[2020-09-05] MEDS: CENTRAL LINE FLUSH 10 ML IV PUSH ×4 (05:06→22:51)
[2020-09-05] MEDS: ALBUMIN HUMAN 25% 25 GM/100 ML 100 ML IVPB ×3 (05:06→19:50)
[2020-09-05 05:10] LABS: Alveolar/Arterial O2 Gradient 610.4 mmHg; Base Excess ABG -8.1 mEq/l (+/-2.0); Carboxyhemoglobin 0.5 % THb (0-2.0); Fractional Inspired Oxygen 100 %; HCO3 ABG 18.6 mEq/l (22.0-26.0); Methemoglobin ABG 0.1 %THb (0-1.5); Oxygen Content ABG 15.7 %vol (16.0-22.0); Oxygen Saturation ABG 87.3 % (95.0-100.0); Oxyhemoglobin 89.5 % THb (90.0-100.0); PCO2 ABG 42.5 mmHg (35.0-45.0); PO2 ABG 60.1 mmHg (80.0-100.0); Reduced Hemoglobin 9.9 %THb (0-5.0); Total Hemoglobin 12.5 g/dL (12.0-18.0)
[2020-09-05 05:13] LABS: Site Drawn ARTLINE; pH ABG 7.259 (7.350-7.450)
[2020-09-05 05:14] LABS: Arterial Blood Gas PEEP 10 cmH2O; Arterial Blood Gas Tidal Volume 500 ml; Arterial Blood Gas Vent Mode CMV; Arterial Blood Gas Ventilator rate 30 /MIN; Device VENTILATOR
[2020-09-05 05:18] LABS: Alanine Aminotransferase 43 U/L (4-50); Albumin Level 3.1 g/dL (3.5-5.1); Alkaline Phosphatase 34 U/L (38-126); Anion Gap 22 mmol/L (8-16); Aspartate Amino Transferase 60 U/L (17-59); Bilirubin,Total 1.6 mg/dL (0.2-1.3); Blood Urea Nitrogen 33 mg/dL (9-20); Calcium 7.1 mg/dL (8.4-10.2); Carbon Dioxide 19 mmol/L (22-30); Chloride 99 mmol/L (98-107); Estimated CRCL calculation 48 ml/min; Estimated Glomerular Filt Rate 31; Glucose 221 mg/dL (65-110); Magnesium 1.9 mg/dL (1.6-2.3); Potassium 3.5 mmol/L (3.4-5.0); Sodium 140 mmol/L (137-145)
[2020-09-05 05:49] LABS: Glucose Point of Care 192 mg/dl (65-105)
[2020-09-05] MEDS: SODIUM BICARBONATE 8.4% 50 MEQ/50 ML SYRINGE 100 MEQ IV PUSH ×3 (06:13→15:40)
[2020-09-05 06:32] LABS: Band Neutrophils Percent 32 % (0-6); Lymphocytes Absolute Manual 1.58 K/mm3 (1.1-4.5); Metamyelocytes Percent 22 %; Monocytes Absolute Manual 0.39 K/mm3 (0.1-0.90); Monocytes Percent Manual 4 % (3-9); Myelocytes Percent 7 %; Neutrophils Absolute Manual 4.95 K/mm3 (1.3-6.7); Neutrophils Percent Manual 18 % (46-73); Promyelocytes Percent 1 %; Total Cells Counted 100
[2020-09-05 06:33] LABS: Atypical Lymphocytes Present; Platelet Estimate Decreased (Adequate)
--- NOTE | 2020-09-05 08:15 | WPDANESPN ---
Anes - Prog Note Post-Op Date/Time: 09/05/20 08:15 Cardiovascular status: normal Respiratory status: normal Airway patency: baseline Mental status: baseline Post-Op hydration status: normal Vital Signs: Last Vital Signs Temp 38.3 C H 09/05/20 07:36 Pulse 113 H 09/05/20 07:56 Resp 32 H 09/05/20 07:36 BP 82/45 L 09/05/20 07:36 Pulse Ox 91 09/05/20 07:56 Pain Score (VAS): 0 I/O: Intake & Output 09/04/20 09/05/20 09/05/20 23:59 07:59 15:59 Intake Total 3004 2358 Output Total 1150 2100 Balance 1854 258 Laboratory Tests 09/05/20 04:36 09/05/20 04:36 09/04/20 09/04/20 09/04/20 10:59 11:20 14:42 WBC RBC Hgb Hct MCV MCH MCHC RDW Plt Count MPV Immature Gran % (Auto) Neut % (Auto) Lymph % (Auto) [place]oul[place] % (Auto) Eos % (Auto) Baso % (Auto) Lymph # (Auto) [place] # (Auto) Eos # (Auto) Baso # (Auto) Abs Immat Gran (auto) Absolute Neuts (auto) Absolute Nucleated RBC Total Counted Neutrophils % (Manual) Band Neutrophils % Lymphocytes % (Manual) Monocytes % (Manual) Metamyelocytes % Myelocytes % Promyelocytes % (Man) Nucleated RBC % Abs Neuts (Manual) Abs Lymphs (Manual) Abs Monocytes (Manual) Atypical Lymphocytes Platelet Estimate PT INR Fibrinogen Puncture Site Artline Artline ABG pH 7.091 L* 7.201 L* ABG pCO2 60.8 H* 36.6 ABG pO2 72.5 L 87.5 ABG PO2/FiO2 Ratio 0.81 0.88 ABG HCO3 18.1 L 14.0 L ABG O2 Saturation 87.8 L 94.7 L ABG O2 Content 21.2 20.7 ABG Base Excess -12.7 -13.1 A-a Gradient 506.9 588.9 Oxyhemoglobin 86.7 L 93.5 Carboxyhemoglobin Methemoglobin Reduced Hemoglobin Total Hemoglobin 17.4 15.7 O2 Delivery Device Ventilator Ventilator O2 Liters/Min Not Reportable Not Reportable Minute Volume Not Reportable Not Reportable Vent Rate 20 30 Vent Mode Cmv Cmv FiO2 90 100 Tidal Volume 450 500 PEEP 8 10 Peak Inspir Pressure Not Reportable Not Reportable Pressure Support Not Reportable Not Reportable Sodium Potassium Chloride Carbon Dioxide Anion Gap BUN Creatinine Estim Creat Clear Calc Estimated GFR Glucose POC Capillary Glucose Lactic Acid 6.5 H* Calcium Magnesium Total Bilirubin AST ALT Alkaline Phosphatase Total Protein Albumin Lipase 09/04/20 09/04/20 09/04/20 15:06 15:19 15:19 WBC 7.6 RBC 5.08 Hgb 15.5 Hct 49.9 MCV 98.2 MCH 30.5 MCHC 31.1 L RDW 14.6 H Plt Count 256 MPV 11.9 H Immature Gran % (Auto) 0.5 Neut % (Auto) 86.9 H Lymph % (Auto) 8.5 L [place] % (Auto) 3.3 Eos % (Auto) 0.5 Baso % (Auto) 0.3 Lymph # (Auto) 0.65 L [place] # (Auto) 0.3 Eos # (Auto) 0.0 Baso # (Auto) 0.0 Abs Immat Gran (auto) 0.04 H Absolute Neuts (auto) 6.6 Absolute Nucleated RBC 0.0 Total Counted Neutrophils % (Manual) Band Neutrophils % Lymphocytes % (Manual) Monocytes % (Manual) Metamyelocytes % Myelocytes % Promyelocytes % (Man) Nucleated RBC % 0.3 H Abs Neuts (Manual) Abs Lymphs (Manual) Abs Monocytes (Manual) Atypical Lymphocytes Platelet Estimate PT INR Fibrinogen Puncture Site ABG pH ABG pCO2 ABG pO2 ABG PO2/FiO2 Ratio ABG HCO3 ABG O2 Saturation ABG O2 Content ABG Base Excess A-a Gradient Oxyhemoglobin Carboxyhemoglobin Methemoglobin Reduced Hemoglobin Total Hemoglobin O2 Delivery Device O2 Liters/Min Minute Volume Vent Rate Vent Mode FiO2 Tidal Volume PEEP Peak Inspir Pressure Pressure Support Sodium 141 Potassium 3.7 Chloride 110 H Carbon Dioxide 18 L Anion Gap 13 BUN 24 H Creatinine 2.00 H Estim Creat Clear Calc 50 Estimated GFR 35 L Glucose 175 H PO
[2020-09-05] MEDS: ROCURONIUM BROMIDE 50 MG/5 ML VIAL IV PUSH ×2 (08:20→13:00)
[2020-09-05 08:22] LABS: Lipase 162 U/L (23-300)
[2020-09-05 08:29] LABS: INR 1.7; Prothrombin Time 19.6 Seconds (11.1-14.7)
--- NOTE | 2020-09-05 08:40 | PC.NURSE ---
Off floor to CT via bed.
[2020-09-05 08:47] LABS: Fibrinogen 152 mg/dl (215-510)
--- NOTE | 2020-09-05 09:01 | PM.PNGS ---
Progress Note: A&P Assessment and Plan (1) Septic shock: Code(s): A41.9 - Sepsis, unspecified organism; R65.21 - Severe sepsis with septic shock Status: Acute Assessment and Plan: worsening despite maximal intervention, CT largely unremarkable this am, cont abx and support (2) Pneumothorax on right: Code(s): J93.9 - Pneumothorax, unspecified Status: Acute Assessment and Plan: resolved, CT to seal (3) Bowel perforation: Code(s): K63.1 - Perforation of intestine (nontraumatic) Status: Acute Assessment and Plan: CT c no free air, free fluid, if pt becomes more stable will need second look laparotomy, washout, vac change (4) Acute hypoxemic respiratory failure: Code(s): J96.01 - Acute respiratory failure with hypoxia Status: Acute Assessment and Plan: cont maximal support, mgmt per tree expert Subjective Subjective Date/Time Seen: 09/05/20 09:01 pt cont to be unstable, increasing pressor requirements and worsening acidosis, pt had CT this am, cont to be intubated/sedated Review of Systems Review of Systems: ROS unobtainable: Yes unobtainable due to endotracheal tube Exam Const: General: ill appearing Nutritional Appearance: obese Chest: Chest palpation & inspection: normal inspection of the chest Resp: Effort & Inspection: symmetric chest movement Auscultation: diminished lung sounds Other: Right CT - C/D/I Cardio: Rate: tachycardic Rhythm: regular rhythm GI: Other: abthera - C/D/I, distended, serosanganeous fluid Objective Data Vital Signs Vital Signs: Vital Signs - 24 hr 09/04/20 09:30 09/04/20 09:54 09/04/20 10:00 Temperature 36.9 C Pulse Rate 94 103 H 107 H Respiratory Rate 20 19 Blood Pressure 173/71 H Pulse Oximetry 93 09/04/20 10:04 09/04/20 10:09 09/04/20 11:05 Temperature 36.9 C Pulse Rate 106 H 107 H 118 H Respiratory Rate 21 H Blood Pressure 137/70 Pulse Oximetry 92 92 90 09/04/20 11:15 09/04/20 11:39 09/04/20 11:46 Temperature 37.4 C 37.6 C Pulse Rate 116 H 113 H 113 H Respiratory Rate 28 H 30 H Blood Pressure 83/50 L 72/44 L 78/44 L Pulse Oximetry 88 L 89 L 09/04/20 12:00 09/04/20 12:14 09/04/20 12:23 Temperature Pulse Rate 114 H 126 H 119 H Respiratory Rate Blood Pressure 66/38 L Pulse Oximetry 91 93 09/04/20 13:00 09/04/20 14:00 09/04/20 15:00 Temperature 37.4 C 37.5 C 37.9 C H Pulse Rate 93 92 92 Respiratory Rate 32 H 33 H 35 H Blood Pressure 119/55 L 112/50 L 107/50 L Pulse Oximetry 94 96 96 09/04/20 15:41 09/04/20 15:45 09/04/20 16:00 Temperature 38.3 C H Pulse Rate 95 101 H 96 Respiratory Rate 35 H Blood Pressure 94/47 L Pulse Oximetry 95 96 09/04/20 17:00 09/04/20 17:02 09/04/20 17:35 Temperature 38.6 C H Pulse Rate 98 97 101 H Respiratory Rate 36 H Blood Pressure 93/48 L Pulse Oximetry 96 96 09/04/20 18:00 09/04/20 18:12 09/04/20 18:27 Temperature 38.9 C H 39.1 C H Pulse Rate 103 H 105 H Respiratory Rate 34 H Blood Pressure 93/49 L 94/47 L Pulse Oximetry 92 09/04/20 18:31 09/04/20 18:35 09/04/20 18:36 Temperature Pulse Rate 104 H 103 H 104 H Respiratory Rate 30 H 30 H Blood Pressure 94/47 L Pulse Oximetry 09/04/20 19:00 09/04/20 19:12 09/04/20 20:00 Temperature 39.3 C H 39.4 C H 39.4 C H Pulse Rate 106 H 109 H Respiratory Rate 29 H 30 H Blood Pressure 91/45 L 83/46 L Pulse Oximetry 98 95 09/04/20 20:05 09/04/20 20:47 09/04/20 20:48 Temperature Pulse Rate 97 109 H 108 H Respiratory Rate 30 H 30 H Blood Pressure Pulse Oximetry 96 09/04/20 20:59 09/04/20 21:00 09/04/20 21:05 Temperature 39.6 C H Pulse Rate 111 H 111 H 110 H Respiratory Rate 30 H 30 H Blood Pressure 93/51 L 108/64 Pulse Oximetry 96 09/04/20 21:06 09/04/20 21:42 09/04/20 21:47 Temperature Pulse Rate 110 H 110 H 110 H Respiratory Rate 30 H 30 H Blood Pressure 89/51 L Pulse
--- NOTE | 2020-09-05 09:20 | PC.NURSE ---
Back to ICU #6 without issue.
--- NOTE | 2020-09-05 09:34 | PC.NURSE ---
Dr. Adame to bedside, chest tube to water seal.
--- NOTE | 2020-09-05 10:00 | PC.NURSE ---
Patient oxygenation decreasing to 80%. Chest tube place to wall suction. Dr. Hannah notified.
[2020-09-05] MEDS: MIDAZOLAM 100MG/NS 100ML(*CRX) 100 MG/100 ML BAG IV CONT (11:00)
[2020-09-05] MEDS: ENOXAPARIN 40 MG/0.4 ML SYRINGE SUB-Q (11:21)
[2020-09-05] MEDS: MINERAL OIL/WHITE PETROLATUM OINTMENT 1 APPLIC EACH EYE ×2 (11:22→19:53)
[2020-09-05] MEDS: FENTANYL 2,500MCG/NS250ML(*CRX 2,500 MCG/250 ML BAG 10 MCG IV CONT (11:42)
[2020-09-05 12:42] LABS: Glucose Point of Care 170 mg/dl (65-105)
[2020-09-05] MEDS: FLUCONAZOLE 100 MG/NACL 50 ML 100 MG/50 ML BTL 50 MG IVPB (12:46)
--- NOTE | 2020-09-05 13:24 | WPDINTPN ---
Progress Note: A&P Assessment and Plan (1) Septic shock: Code(s): A41.9 - Sepsis, unspecified organism; R65.21 - Severe sepsis with septic shock Status: Acute Assessment and Plan: patient received 2 L saline bolus in the ED and and additional IV fluid bolus in the OR. on arrival to ICU he has received at least 3-4 L of IVF boluses along with maintain is infusion despite aggressive resuscitation patient has continued to deteriorate with worsening shock overnight currently patient is on Levophed epinephrine vasopressin and Guy-Synephrine and high-dose right femoral arterial catheter was placed yesterday for accurate blood pressure monitoring and ABGs he is also on stress dose steroids 25% albumin was added cultures were sent and are negative till now patient was on empiric Zosyn. I have expanded coverage with Diflucan and vancomycin check echocardiogram with increasing lactic acid despite aggressive volume resuscitation and vasopressor, I sent patient for CT abdomen pelvis and chest due to concern of ischemic colitis. CT shows - Bowel wall thickening in the proximal colon and along multiple loops of small bowel throughout the abdomen and pelvis consistent with enterocolitis most likely related to either sepsis or ischemia with differential including less likely infection or least likely inflammatory bowel disease. surgery aware of CT results. patient too unstable at this time be taken back to OR per surgeon (2) Acute hypoxemic respiratory failure: Code(s): J96.01 - Acute respiratory failure with hypoxia Status: Acute Assessment and Plan: Secondary to sepsis, questionable aspiration pneumonia, atelectasis, right pneumothorax Continue full mechanical ventilation support to prevent hypoxemia/hypercarbia and end organ damage. ABG and PCXR reviewed currently on tidal volume of 500 PEEP peep of 10 RR 30. unable to to aggressively increase PEEP due to shock chest tube to -20 wall suction Will attempt SBT when ready to wean. CT chest shows consolidation and effusion along with edema. patient is on broad-spectrum antibiotics (3) Bowel perforation: Code(s): K63.1 - Perforation of intestine (nontraumatic) Status: Acute Assessment and Plan: status post Exploratory laparotomy, extensive lysis of adhesions approximately 90 minutes, reduction multiple incarcerated incisional hernias times 8, repair of enterotomy, abdominal washout, placement of greater than 50 sq cm abthera wound vac, NPO broad-spectrum antibiotics general surgery is following- see above (4) Hernia with strangulation: Code(s): K46.0 - Unspecified abdominal hernia with obstruction, without gangrene Status: Acute Assessment and Plan: Status post ex lap and reduction - see above (5) Pneumothorax on right: Code(s): J93.9 - Pneumothorax, unspecified Status: Acute Assessment and Plan: status post chest tube placement by general surgery chest tube to wall suction -20 no air leak repeat chest x-ray shows re-expansion of lung (6) Acidosis: Code(s): E87.2 - Acidosis Status: Acute Assessment and Plan: secondary to sepsis and DANA patient has received several boluses of IV bicarb and is on IV fluids with bicarb (7) Coagulopathy: Code(s): D68.9 - Coagulation defect, unspecified Status: Acute Assessment and Plan: mild DIC likely secondary to sepsis will give vitamin K will reserve FFP if patient develops any sign of bleeding coags further worsen (8) DANA (acute kidney injury): Code(s): N17.9 - Acute kidney failure, unspecified Status: Acute Assessment and Plan: secondary to septic shock monitor urine output and electrolytes IV fluids check CK Additional Plan DVT prophylaxis - Lovenox Stress ulcer prophylaxis - PPI Nutrition - NPOs Code Status - Full Code. I have had prolonged discussion wi
[2020-09-05 14:12] LABS: Alveolar/Arterial O2 Gradient 594.3 mmHg; Base Excess ABG -5.8 mEq/l (+/-2.0); Fractional Inspired Oxygen 100 %; HCO3 ABG 20.8 mEq/l (22.0-26.0); Oxygen Content ABG 15.8 %vol (16.0-22.0); Oxyhemoglobin 92.3 % THb (90.0-100.0); PCO2 ABG 45.1 mmHg (35.0-45.0); PO2 ABG 73.6 mmHg (80.0-100.0); PO2 FiO2 Ratio Arterial Blood 0.74 %; Total Hemoglobin 12.1 g/dL (12.0-18.0)
[2020-09-05 14:14] LABS: pH ABG 7.281 (7.350-7.450)
[2020-09-05 14:15] LABS: Arterial Blood Gas Vent Mode CMV; Arterial Blood Gas Ventilator rate 30 /MIN; Device VENTILATOR; Site Drawn ARTLINE
[2020-09-05 14:16] LABS: Arterial Blood Gas PEEP 10 cmH2O; Arterial Blood Gas Tidal Volume 500 ml
[2020-09-05] MEDS: PHYTONADIONE ADULT INJ 10 MG in DEXTROSE 5% IN WATER 50 ML 100 MG IVPB (14:43)
[2020-09-05] MEDS: PERFLUTREN LIPID MICROSPHERES 1.5 ML VIAL DILUTED TO 10 ML TOTAL VOLUME IV PUSH (15:08)
[2020-09-05 15:40] LABS: Hematocrit 36.2 % (42.0-52.0); Hemoglobin 11.4 g/dL (14.0-18.0); Mean Corpuscular HGB Conc 31.5 g/dl (32-36); Mean Corpuscular Hemoglobin 30.4 pg (26-34); Mean Corpuscular Volume 96.5 fl (80-100); Mean Platelet Volume 12.5 fl (7.4-10.4); Platelet Count Result 92 k/mm3 (150-375); Red Blood Count 3.75 M/mm3 (4.6-6.20); White Blood Count 8.1 K/mm3 (4.5-10.0)
[2020-09-05 15:52] LABS: Alanine Aminotransferase 43 U/L (4-50); Albumin Level 3.3 g/dL (3.5-5.1); Alkaline Phosphatase 32 U/L (38-126); Anion Gap 22 mmol/L (8-16); Aspartate Amino Transferase 67 U/L (17-59); Bilirubin,Total 1.8 mg/dL (0.2-1.3); Blood Urea Nitrogen 36 mg/dL (9-20); Calcium 6.2 mg/dL (8.4-10.2); Carbon Dioxide 23 mmol/L (22-30); Chloride 92 mmol/L (98-107); Estimated CRCL calculation 43 ml/min; Estimated Glomerular Filt Rate 27; Glucose 193 mg/dL (65-110); Lactic Acid Reflex 10.5 mmol/L (0.7-2.1); Magnesium 1.8 mg/dL (1.6-2.3); Potassium 3.7 mmol/L (3.4-5.0); Sodium 137 mmol/L (137-145)
[2020-09-05] MEDS: CALCIUM CHLOR 1,000MG/100ML NS 1,000 MG/100 ML BAG 100 MG IVPB (17:17)
[2020-09-05 18:20] LABS: Reflex Lactic Acid Yes or No Add Lactic
[2020-09-05] MEDS: VASOPRESSIN INJ 100 UNITS in DEXTROSE 5% 95 ML IV CONT (19:43)
[2020-09-06] VITALS (63 sets, daily range): BP systolic 77–135; BP diastolic 46–71; PULSE 89–110; RESP 30; TEMP 38.1–38.8; O2SAT 88–95
[2020-09-06 00:36] LABS: Glucose Point of Care 141 mg/dl (65-105)
[2020-09-06] MEDS: SODIUM BICARBONATE 8.4% 100 MEQ in WATER, STERILE FOR INJECTION 1,000 ML IV CONT ×3 (00:37→21:21)
[2020-09-06] MEDS: ALBUMIN HUMAN 25% 25 GM/100 ML 100 ML IVPB ×4 (00:38→17:40)
[2020-09-06] MEDS: ACETAMINOPHEN 325 MG TABLET 650 MG PO (00:47)
[2020-09-06] MEDS: NOREPINEPHRINE 8 MG/D5W 250 ML 8 MG/250 ML BAG 93.75 MG IV CONT ×2 (01:38→04:21)
[2020-09-06] MEDS: EPINEPHrine INJ 4 MG in DEXTROSE 5% IN WATER 250 ML 76.2 MG IV CONT ×4 (02:07→12:15)
[2020-09-06] MEDS: HYDROCORTISONE SODIUM SUCCINATE 100 MG/2 ML VIAL IV PUSH ×3 (05:02→21:18)
[2020-09-06] MEDS: CENTRAL LINE FLUSH 10 ML IV PUSH ×4 (05:02→21:18)
[2020-09-06 05:06] LABS: Hematocrit 32.7 % (42.0-52.0); Hemoglobin 10.5 g/dL (14.0-18.0); Mean Corpuscular HGB Conc 32.1 g/dl (32-36); Mean Corpuscular Volume 96.5 fl (80-100); Mean Platelet Volume 12.3 fl (7.4-10.4); Platelet Count Result 82 k/mm3 (150-375); Red Blood Count 3.39 M/mm3 (4.6-6.20); Red Cell Distribution Width 15.1 % (11.5-14.5); White Blood Count 13.2 K/mm3 (4.5-10.0)
[2020-09-06 05:15] LABS: Fibrinogen 389 mg/dl (215-510); INR 1.5; Prothrombin Time 17.8 Seconds (11.1-14.7)
[2020-09-06 05:20] LABS: Albumin Level 3.2 g/dL (3.5-5.1); Alkaline Phosphatase 37 U/L (38-126); Anion Gap 25 mmol/L (8-16); Aspartate Amino Transferase 87 U/L (17-59); Bilirubin,Total 2.4 mg/dL (0.2-1.3); Blood Urea Nitrogen 46 mg/dL (9-20); Calcium 5.9 mg/dL (8.4-10.2); Carbon Dioxide 21 mmol/L (22-30); Chloride 87 mmol/L (98-107); Estimated CRCL calculation 32 ml/min; Estimated Glomerular Filt Rate 19; Glucose 187 mg/dL (65-110); Magnesium 1.7 mg/dL (1.6-2.3); Potassium 3.6 mmol/L (3.4-5.0); Sodium 133 mmol/L (137-145)
[2020-09-06 05:21] LABS: Lactic Acid Reflex 9.9 mmol/L (0.7-2.1)
[2020-09-06 05:26] LABS: Alanine Aminotransferase 45 U/L (4-50)
[2020-09-06 05:27] LABS: Alveolar/Arterial O2 Gradient 591.4 mmHg; Base Excess ABG -2.5 mEq/l (+/-2.0); Carboxyhemoglobin 0.3 % THb (0-2.0); Fractional Inspired Oxygen 100 %; HCO3 ABG 22.9 mEq/l (22.0-26.0); Methemoglobin ABG 0.2 %THb (0-1.5); Oxygen Content ABG 15.2 %vol (16.0-22.0); Oxygen Saturation ABG 95.3 % (95.0-100.0); Oxyhemoglobin 94.1 % THb (90.0-100.0); PCO2 ABG 41.8 mmHg (35.0-45.0); PO2 ABG 79.8 mmHg (80.0-100.0); Reduced Hemoglobin 5.4 %THb (0-5.0); Total Hemoglobin 11.4 g/dL (12.0-18.0); pH ABG 7.356 (7.350-7.450)
[2020-09-06 05:28] LABS: Arterial Blood Gas PEEP 10 cmH2O; Arterial Blood Gas Vent Mode CMV; Arterial Blood Gas Ventilator rate 30 /MIN; Device VENTILATOR; Site Drawn ARTLINE
[2020-09-06 05:29] LABS: Arterial Blood Gas Tidal Volume 500 ml
[2020-09-06] MEDS: NOREPINEPHRINE 8 MG/D5W 250 ML 8 MG/250 ML BAG 90 MG IV CONT (07:04)
[2020-09-06 08:02] LABS: Reflex Lactic Acid Yes or No Add Lactic
[2020-09-06] MEDS: FLUCONAZOLE 100 MG/NACL 50 ML 100 MG/50 ML BTL 50 MG IVPB (08:20)
[2020-09-06] MEDS: PANTOPRAZOLE SODIUM IV 40 MG VIAL IV PUSH (08:21)
[2020-09-06] MEDS: MINERAL OIL/WHITE PETROLATUM OINTMENT 1 APPLIC EACH EYE ×2 (08:25→21:17)
--- NOTE | 2020-09-06 08:51 | WPDINTPN ---
Progress Note: A&P Assessment and Plan (1) Septic shock: Code(s): A41.9 - Sepsis, unspecified organism; R65.21 - Severe sepsis with septic shock Status: Acute Assessment and Plan: patient received aggressive volume resuscitation but patient continued to deteriorate with worsening shock over 1st 24-48 hours currently patient is on Levophed epinephrine vasopressin and Guy-Synephrine and at high-dose right femoral arterial catheter was placed yesterday for accurate blood pressure monitoring and ABGs IV fluids with bicarb he is also on stress dose steroids and 25% albumin was added cultures were sent and are negative till now patient was on empiric Zosyn. 09/05 expanded coverage with Diflucan and vancomycin reviewed echocardiogram 09/05 with increasing lactic acid despite aggressive volume resuscitation and vasopressor, I sent patient for CT abdomen pelvis and chest due to concern of ischemic colitis. CT shows - Bowel wall thickening in the proximal colon and along multiple loops of small bowel throughout the abdomen and pelvis consistent with enterocolitis most likely related to either sepsis or ischemia with differential including less likely infection or least likely inflammatory bowel disease. surgery aware of CT results. patient too unstable at this time be taken back to OR per surgeon. he may take him back to OR if his hemodynamics status improves (2) Acute hypoxemic respiratory failure: Code(s): J96.01 - Acute respiratory failure with hypoxia Status: Acute Assessment and Plan: Secondary to sepsis, questionable aspiration pneumonia, atelectasis, right pneumothorax Continue full mechanical ventilation support to prevent hypoxemia/hypercarbia and end organ damage. ABG and PCXR reviewed currently on tidal volume of 500 PEEP peep of 10 RR 30. unable to to aggressively increase PEEP due to shock chest tube to -20 wall suction Will attempt SBT when ready to wean. CT chest shows consolidation and effusion along with edema. patient is on broad-spectrum antibiotics (3) Bowel perforation: Code(s): K63.1 - Perforation of intestine (nontraumatic) Status: Acute Assessment and Plan: status post Exploratory laparotomy, extensive lysis of adhesions approximately 90 minutes, reduction multiple incarcerated incisional hernias times 8, repair of enterotomy, abdominal washout, placement of greater than 50 sq cm abthera wound vac, NPO broad-spectrum antibiotics general surgery is following- see above wound VAC is in place (4) Hernia with strangulation: Code(s): K46.0 - Unspecified abdominal hernia with obstruction, without gangrene Status: Acute Assessment and Plan: Status post ex lap and reduction - see above (5) Pneumothorax on right: Code(s): J93.9 - Pneumothorax, unspecified Status: Acute Assessment and Plan: status post chest tube placement by general surgery chest tube to wall suction -20 no air leak repeat chest x-ray shows re-expansion of lung (6) Acidosis: Code(s): E87.2 - Acidosis Status: Acute Assessment and Plan: secondary to sepsis and DANA patient has received several boluses of IV bicarb and is on IV fluids with bicarb (7) Coagulopathy: Code(s): D68.9 - Coagulation defect, unspecified Status: Acute Assessment and Plan: mild DIC likely secondary to sepsis 09/05 patient was given vitamin K INR and fibrinogen level is improved today as compared to yesterday. will reserve FFP if patient develops any sign of bleeding coags further worsen hold Lovenox today (8) DANA (acute kidney injury): Code(s): N17.9 - Acute kidney failure, unspecified Status: Acute Assessment and Plan: secondary to septic shock which may have progressed to ATN urine output is poor and his increased to 3.4 hemodialysis not indicated at this time. if kidney failure progresses
[2020-09-06] MEDS: CALCIUM CHLOR 1,000MG/100ML NS 1,000 MG/100 ML BAG 100 MG IVPB (10:03)
[2020-09-06] MEDS: NOREPINEPHRINE 8 MG/D5W 250 ML 8 MG/250 ML BAG 73.13 MG IV CONT (10:22)
[2020-09-06] MEDS: FENTANYL 2,500MCG/NS250ML(*CRX 2,500 MCG/250 ML BAG 10 MCG IV CONT (11:14)
[2020-09-06 11:52] LABS: Glucose Point of Care 189 mg/dl (65-105)
--- NOTE | 2020-09-06 13:19 | PM.PNGS ---
Progress Note: A&P Assessment and Plan (1) Septic shock: Code(s): A41.9 - Sepsis, unspecified organism; R65.21 - Severe sepsis with septic shock Status: Acute Assessment and Plan: Stable but in critical condition on 3 pressors and a bicarb drip with maximal intervention, cont abx and support. Discussed situation with Dr. Brielle page and we both agree he is too unstable to take back to the OR today to do an ABThera change and washout. (2) Pneumothorax on right: Code(s): J93.9 - Pneumothorax, unspecified Status: Acute Assessment and Plan: resolved, CT to water seal and 20 cm of suction with no obvious air leak. (3) Bowel perforation: Code(s): K63.1 - Perforation of intestine (nontraumatic) Status: Acute Assessment and Plan: CT early AM on09/05 with no free air, free fluid, and there is no particulate matter in the drainage from the ABThera wound VAC. if pt becomes more stable will try to transfer to [facility] at the request of his sister. He has had multiple of his previous surgeries for diverticulitis and ostomy takedown/hernia repairs there. If he stays here Dr. Hannah and I have discussed possibly taking him back for AbThera dressing change and abdominal washout tomorrow if his felt stable enough to transport to the OR in back, as he need seconds a second look laparotomy, washout, vac change (4) Acute hypoxemic respiratory failure: Code(s): J96.01 - Acute respiratory failure with hypoxia Status: Acute Assessment and Plan: cont maximal support, mgmt per continuous wave operator Subjective Subjective Date/Time Seen: 09/06/20 13:19 Post Op day: 2 (Status post exploratory laparotomy, lysis of adhesions with reduction of incarcerated ventral incisional hernias (several) and CIS over-sewing of a small perforation of the small bowel.) Interval history: patient is intubated and on pressors so cannot give a history Review of Systems Review of Systems: ROS unobtainable: Yes unobtainable due to endotracheal tube, unobtainable due to medical condition and unobtainable due to mental status Exam Const: General: acute distress and ill appearing Nutritional Appearance: obese HENMT: Head: normal to inspection, normocephalic and atraumatic General nose exam: Normal external nose present Face and sinus: normal facial exam Eyes: General: appearance normal, both eyes and all related structures Pupils: Equal, round and reactive pupils present EOM: EOMs intact bilaterally Neck: Neck: normal visual inspection, full ROM and no lymphadenopathy Chest: Chest palpation & inspection: normal inspection of the chest Resp: Effort & Inspection: symmetric chest movement Auscultation: diminished lung sounds Other: Right CT - C/D/I With no sign of air leak on water seal to the Pleur-Evac with 20 cm of suction Cardio: Rate: tachycardic Rhythm: regular rhythm GI: Other: abthera - C/D/I, distended, serosanganeous fluid and the container and approximately 800 cc out her 12 hour shift. Skin: General skin exam: normal color and no rashes or lesions noted Neuro: Cranial nerves: Yes Equal, round and reactive pupils present Objective Data Vital Signs Vital Signs: Vital Signs - 24 hr 09/05/20 14:00 09/05/20 14:28 09/05/20 15:01 Temperature 38.3 C H Pulse Rate 107 H 101 H 107 H Respiratory Rate 30 H Blood Pressure 98/52 L 101/51 L Pulse Oximetry 93 92 09/05/20 15:50 09/05/20 16:00 09/05/20 16:36 Temperature 38.3 C H Pulse Rate 107 H 107 H 106 H Respiratory Rate 30 H Blood Pressure 98/51 L 98/52 L Pulse Oximetry 94 92 09/05/20 17:18 09/05/20 18:00 09/05/20 19:29 Temperature 38.3 C H Pulse Rate 105 H 107 H 106 H Respiratory Rate 30 H Blood Pressure 94/53 L 98/53 L 98/52 L Pulse Oximetry 93 09/05/20 19:43 09/05/20 19:51 09/05/20 20:00 Temperature 38.3 C H Pulse Rate 108 H 108 H 104 H Respiratory Rate 30 H Blood Pressure 100/53 L 101/53 L 108/56 L Pul
[2020-09-06] MEDS: NOREPINEPHRINE 8 MG/D5W 250 ML 8 MG/250 ML BAG 60 MG IV CONT (14:24)
[2020-09-06] MEDS: EPINEPHrine INJ 4 MG in DEXTROSE 5% IN WATER 250 ML 68.58 MG IV CONT (15:34)
[2020-09-06 17:05] LABS: Glucose Point of Care 179 mg/dl (65-105)
[2020-09-06] MEDS: MIDAZOLAM 100MG/NS 100ML(*CRX) 100 MG/100 ML BAG IV CONT (18:54)
[2020-09-06] MEDS: NOREPINEPHRINE 8 MG/D5W 250 ML 8 MG/250 ML BAG 56.25 MG IV CONT (18:55)
[2020-09-06] MEDS: EPINEPHrine INJ 4 MG in DEXTROSE 5% IN WATER 250 ML 34.29 MG IV CONT (21:17)
--- NOTE | 2020-09-06 21:53 | PC.NURSE ---
Bed received at [facility] called for transport but declined due to low visibility.
--- NOTE | 2020-09-06 22:00 | PC.NURSE ---
2200- Dr. Hannah called to ask if patient can go via ambulance. Helicopters are not flying at this time. giving ok to go via ambulance.
--- NOTE | 2020-10-02 23:42 | PM.TDS ---
Transfer Discharge Sum: Prov Provider Date of admission: 09/04/20 09:54 Primary care physician: Marly Crespo MD Admitting clinician: Imani Adame MD Consults: 09/04/20 Wound/ET Consult Routine Reason for Consult:: wound vac 09/06/20 Consult to Physician Routine Comment: Consulting Provider: Justin Hannah Reason for consultation: icu pt Has provider been notified: Yes DS: Admitting Diagnosis Admitting Diagnosis sepsis, perforated viscus DS: Discharge Diagnosis Discharge Diagnosis (1) Septic shock: Code(s): A41.9 - Sepsis, unspecified organism; R65.21 - Severe sepsis with septic shock Status: Acute Assessment and Plan: severe sepsis, on pressors, cont max support (2) Hernia with strangulation: Code(s): K46.0 - Unspecified abdominal hernia with obstruction, without gangrene Status: Acute Assessment and Plan: see op report, will need second look laparatomy, vac change (3) Bowel perforation: Code(s): K63.1 - Perforation of intestine (nontraumatic) Status: Acute Assessment and Plan: s/p repair, see above (4) Respiratory failure: Code(s): J96.90 - Respiratory failure, unspecified, unspecified whether with hypoxia or hypercapnia Status: Acute Assessment and Plan: cont support per critical care team Transfer Discharge Sum: Med Medications Active and Home Medications: Home Medications trazodone 50 mg tablet 50 mg PO HS #90 tablet 05/27/20 [Rx Confirmed 09/04/20] famotidine 40 mg tablet 40 mg PO DAILY #90 tablet 05/29/20 [Rx Confirmed 09/04/20] testosterone cypionate 200 mg/mL intramuscular oil 200 mg IM MONTHLY #3 vial 05/29/20 [Rx Confirmed 09/04/20] sertraline 50 mg tablet 50 mg PO BID tablet 07/03/20 [History Confirmed 09/04/20] lisinopril 10 mg-hydrochlorothiazide 12.5 mg tablet 1 tablet PO DAILY #90 tablet 07/28/20 [Rx Confirmed 09/04/20] simvastatin 20 mg tablet 20 mg PO QHS #90 tablet 07/28/20 [Rx Confirmed 09/04/20] Transfer Discharge Sum: Hosp Hospital Course Hospital course: Dandy Carias is a 55 year old male presenting c severe septic shock from intraabdominal source. Pt taken to OR emergently and found to have strangulated incisional hernia c bowel perforation. Pt c multiple incisional hernias and loss of abdominal domain. Given instability, bowel perforation was oversewn and all hernias reduced. Decision to leave abdomen open c abtherra wound vac c plans for second look laparatomy once stabilized. Pt then transferred to ICU. Pt cont to require maximal support and ventilator support. Pt had all previous procedures done at [facility] and decision was made to transfer there for further care. Time Spent with Patient Time attestation: Total time spent providing and/or coordinating transfer services: Exam Const: General: ill appearing and patient obtunded Orientation/consciousness: patient obtunded Cardio: Rate: tachycardic Rhythm: regular rhythm GI: Other: soft, vac C/D/I
== END 2020-09-06 23:30 | disposition short-term general hospital (02) | DRG 853 ==
LOC: ANHED 02:32 → ANHSURGERY 05:16 → ANHICU 21:21
PROVIDERS: Anesthesiology; Internal Medicine; Admitting Provider Surgery; Emergency Provider Emergency Medicine; PCP Family Medicine; Visit Provider Surgery
PROC: 0DNW3ZZ Release Peritoneum, Percutaneous Approach (ICD-10-PCS; CPT 49000; principal; 2020-09-04 06:30)
PROC: 0DNW3ZZ Release Peritoneum, Percutaneous Approach (ICD-10-PCS; CPT 32551; 2020-09-04 06:30)
DX: A41.9 Sepsis, unspecified organism (principal); K63.1 Perforation of intestine (nontraumatic); J96.01 Acute respiratory failure with hypoxia; R65.21 Severe sepsis with septic shock; J69.0 Pneumonitis due to inhalation of food and vomit; D65 Disseminated intravascular coagulation [defibrination syndrome]; N17.0 Acute kidney failure with tubular necrosis; K43.0 Incisional hernia with obstruction, without gangrene; J98.11 Atelectasis; J93.9 Pneumothorax, unspecified; R18.8 Other ascites; Z68.41 Body mass index [BMI] 40.0-44.9, adult; F41.9 Anxiety disorder, unspecified; M19.90 Unspecified osteoarthritis, unspecified site; G89.29 Other chronic pain; M54.40 Lumbago with sciatica, unspecified side; F32.9 Major depressive disorder, single episode, unspecified; E78.5 Hyperlipidemia, unspecified; I10 Essential (primary) hypertension; K21.9 Gastro-esophageal reflux disease without esophagitis; G47.00 Insomnia, unspecified; G47.33 Obstructive sleep apnea (adult) (pediatric); R73.03 Prediabetes; F17.210 Nicotine dependence, cigarettes, uncomplicated; H91.91 Unspecified hearing loss, right ear; K76.0 Fatty (change of) liver, not elsewhere classified; K66.0 Peritoneal adhesions (postprocedural) (postinfection); E66.9 Obesity, unspecified
CPT/HCPCS: 31500; 36415; 36600; 51702; 71045; 71250; 74176; 74177; 80048; 80053; 81001; 82375; 82805; 82948; 83050; 83605; 83690; 83735; 84484; 85025; 85027; 85384; 85610; 85730; 86140; 87040; 87076; 87086; 93005; 94002; 94003; 96361; 96365; 96367; 96375; 96376; 99291; A9270; C8929; C9113; J0131; J0171; J1450; J1650; J1720; J1815; J2060; J2250; J2270; J2370; J2405; J2543; J2704; J3010; J3370; J3430; J3475; J3480; J7030; J7040; J7060; P9045; P9047; Q9957; Q9967

== ENCOUNTER 2022-03-08 13:18 | Emergency (ER) | payer MEDICARE, MEDICAID, SELFPAY ==
--- NOTE | ~2022-03-08 | XR_ITS ---
EXAM: XR hip RT 2V w AP pelvis, XR femur RT min 2V DATE: 03/08/2022 14:20 HISTORY: fall with right hip pain,X2DAYS AGO . COMPARISON: CT chest abdomen and pelvis 09/05/2020. FINDINGS: Decreased mineralization. No fracture or dislocation. No lytic or blastic lesion. Degenera tive lumbar disc change. Severe right and moderate left osteoarthritis of the hips. No erosion or per iosteal change. Right lower quadrant suture line. Pelvic phleboliths. Moderate degenerative change at the knee. IMPRESSION: No acute osseous finding in the pelvis, right hip, or right femur. Reviewed, dictated and finalized at location [facility]. [facility] IMPRESSION: No acute osseous finding in the pelvis, right hip, or right femur.
[2022-03-08 13:23] VITALS: BP 116/65; PULSE 66; RESP 16; TEMP 36.4; O2SAT 96
--- NOTE | 2022-03-08 13:23 | ED.FALL ---
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 The patient slipped and fell 3 days ago. subsequently he was able to walk. Since yesterday the patient complains of right hip pain. He sustained abrasions over his left paula. no other injuries noted. MD complaint: fall Onset (ago): day(s) ( Three days ago) Fall from: standing Fall witnessed: no Place fall occurred: home Loss of consciousness: none Prolonged down time: no Symptoms prior to fall: none Context: tripped/slipped Location of injury - extremities: Right: thigh Related Data Home Medications Medication Instructions Recorded Confirmed oxycodone 5 mg tablet 5 mg PO Q12H PRN Pain 03/08/22 03/08/22 Allergies Allergy/AdvReac Type Severity Reaction Status Date / Time No Known Allergies Allergy Verified 03/08/22 13:31 Review of Systems Review of Systems: All systems reviewed & are unremarkable except as noted in HPI and below Constitutional: Constitutional: Reports as per HPI and Reports no additional constitutional complaints Eyes: Eyes: Reports as per HPI and Reports no additional eye complaints ENT: Reports system reviewed and no additional complaints, except as documented and Reports as per HPI Cardiovascular: Cardiovascular: Reports as per HPI and Reports no additional cardiovascular complaints Respiratory: Respiratory: Reports as per HPI and Reports no additional respiratory complaints Gastrointestinal: Gastrointestinal: Reports as per HPI and Reports no additional gastrointestinal complaints Comments: colostomy in place with adequate output. Musculoskeletal: Musculoskeletal: Reports no additional musculoskeletal complaints and Reports as per HPI Comments: right hip pain Integumentary/Breasts: Skin/Breast: Reports system reviewed and no additional complaints, except as docu and Reports as per HPI Comments: Abrasions over his left paula Neurologic: Reports system reviewed and no additional complaints, except as documented and Reports as per HPI Psychiatric: Psychiatric: Reports no additional psychiatric complaints and Reports as per HPI Endocrine: Endocrine: Reports no additional endocrine complaints and Reports as per HPI Hematologic/Lymphatic: Hematologic/Lymphatic: Reports no additional hematologic/lymphatic complaints and Reports as per HPI Allergic/Immunologic: Allergic/Immunologic: Reports no additional allergic/immunologic complaints and Reports as per HPI [facility] Past Medical History Medical History Anxiety Arthritis Bowel perforation Chronic low back pain without sciatica Decreased hearing of right ear Degenerative disc disease Depression Diverticulitis Dyslipidemia Essential (primary) hypertension Fatty liver GERD (gastroesophageal reflux disease) GERD without esophagitis Hemorrhoids Hernia with strangulation History of anesthesia reaction Hypogonadism male Insomnia Onychomycosis of great toe LIBRA (obstructive sleep apnea) Perforated viscus Prediabetes Prostatitis Sleep apnea Ulcer Unspecified osteoarthritis, unspecified site Surgical History Surgical History H/O inguinal hernia repair (~2018) History of arthroscopic knee surgery 09/2019 - Right knee meniscus repair History of bladder repair surgery (~2002) History of cholecystectomy (~2011) History of colon resection (~2018) History of discectomy L5 2002 History of exploratory laparotomy - repair of multiple incisiona
[2022-03-08] MEDS: HYDROmorphone HCL INJ (*CRX) 2 MG/ML VIAL 0.5 MG IM (14:51)
[2022-03-08] MEDS: ONDANSETRON HCL ODT 4 MG TABLET PO (14:52)
[2022-03-08 15:18] VITALS: BP 146/77; PULSE 68; RESP 17; TEMP 36.9; O2SAT 99
== END 2022-03-08 15:18 | disposition home or self-care (01) ==
PROVIDERS: Emergency Provider Internal Medicine Critical Care Medicine
DX: M25.551 Pain in right hip (principal); E78.5 Hyperlipidemia, unspecified; F41.9 Anxiety disorder, unspecified; F32.A Depression, unspecified; I10 Essential (primary) hypertension; F17.210 Nicotine dependence, cigarettes, uncomplicated; Z79.891 Long term (current) use of opiate analgesic; W01.0XXA Fall on same level from slipping, tripping and stumbling without subsequent striking against object, initial encounter
CPT/HCPCS: 73502; 73552; 96372; 99284; A9270; J1170

== ENCOUNTER 2022-03-19 14:23 | Outpatient (RCR) | payer MEDICARE, MEDICAID, SELFPAY ==
--- NOTE | 2022-03-19 14:11 | PTOPEVAL1 ---
Assessment and note entered by JT File, PT Evaluation Information Assessment Status Evaluation Diagnosis R hip pain Onset 03/16/22 Subjective Information patient reports he is having pain in the R hip from a fall about 1 week ago. he reports he fell forward, but reports the pain in the R hip did not begin for a few days after the fall. he has had and xray and CT of the R hip. he reports no acute findings. he reports he was told he has a contusion. he reports he was standing in the transition of the house and screen door and fell forward. he reports he had no had any falls prior. Reported Pain Level Pain Score 6: Self Report Assessment PT Clinical Summary mr. oliver presents to skilled PT services for evaluation and treatment of R hip pain following a fall. he presents this date with signs and symptoms of a R hip contusion and flare up of R hip OA. he would benefit from skilled PT to improve his objective/functional deficits and progress towards a return to his prior level strength, rom, walking, and functional activity performance. Plan of Care Interventions Hot Pack/Cold Pack,Manual Therapy,Neuro Re- education,Patient/Caregiver Educati,Therapeutic Activities,Therapeutic Exercise Treatment Frequency and 3x weekly for 9 visits Duration These treatments will address the objective and functional deficits as defined above. The patient will be advanced safely and appropriately in order for the patient to progress towards his/her prior level of function. Additional exercises will be introduced and as well as a comprehensive home exercise program upon discharge, if needed, ?to ensure carryover of functional gains achieved in the clinic. This treatment plan has been reviewed and agreement upon by the patient.
== END 2022-03-23 23:59 | disposition home or self-care (01) ==
LOC: CHSPT 14:23
PROVIDERS: PCP Family Medicine; Visit Provider Family Medicine
DX: M25.551 Pain in right hip (principal)
CPT/HCPCS: 97110; 97161

== ENCOUNTER 2022-05-25 15:00 | Outpatient (RCR) | payer MEDICARE, MEDICAID, SELFPAY ==
--- NOTE | 2022-05-25 16:10 | PTOPEVAL1 ---
Assessment and note entered by Shyam Leiva Evaluation Information Assessment Status Evaluation Diagnosis functional decline, abdominal wound dehiscence Onset 04/13/22 Subjective Information Pt. reports that he underwent surgery on April 13 to address a severe hernia that damaged his intestines. He reports that a muscle was removed from the right thigh to repair his damaged abdominals. He reports that his biggest complication right now is his inability to bend the right knee. He reports that he is currently using a walker for long distance. He reports that his balance seems to be improving and uses the walker only for outdoors mainly. He states that he cannot squat due to right knee stiffness. 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 He reports that his goal is to imrpove his walking and strength. Reported Pain Level Pain Score 2: Self Report Assessment PT Clinical Summary Pt. is a 56 year old male who enters the clinic post surgery resulting in generalized weakness. He presents with impaired right knee ROM, impaired l.e. strength, impaired gait, impaired balance and pain. Continued skilled PT is indcated in order to improve these areas to allow the pt. to be able to perform all IADL's without limitation. Plan of Care Interventions Gait Training,Manual Therapy,Neuro Re-education, Patient/Caregiver Educati,Therapeutic Activities, Therapeutic Exercise,Self-Care/Home Management PT Services Indicated Yes Treatment Frequency and 2x/week x 10 visits Duration These treatments will address the objective and functional deficits as defined above. The patient will be advanced safely and appropriately in order for the patient to progress towards his/her prior level of function. Additional exercises will be introduced and as well as a comprehensive home exercise program upon discharge, if needed, ?to ensure carryover of functional gains achieved in the clinic. This treatment plan has been reviewed and agreement upon by the patient.
== END 2022-05-25 17:00 | disposition home or self-care (01) ==
LOC: CHSPT 15:00
DX: T81.30XD Disruption of wound, unspecified, subsequent encounter (principal); S21.109D Unspecified open wound of unspecified front wall of thorax without penetration into thoracic cavity, subsequent encounter; Z98.890 Other specified postprocedural states
CPT/HCPCS: 97110; 97161

== ENCOUNTER 2024-10-13 20:05 | Outpatient (CLI) | payer MEDICARE, SELFPAY ==
--- OUTSIDE RECORDS SUMMARY | 2024-10-13 20:08 | XMS_ITS | Encounter Summary ---
Author Organization [facility] Address [address] [facility] [place] [address] Care Team Providers Care Shade Cloth Finisher Name Role Phone Unavailable Primary Care Provider Unavailabl e Encounter Details Date Type Department Care Team (Late st Contact Info) Description 01/08/2021 Lab Requisition [facility] [address] [place] [address] Kee Roe MD [address] [place] [address] Social History Tobacco Use Types Packs/Day Years Used Date Smoking Tobacco: Never Assessed Sex and Gender Information Value Date Recorded Sex Assigned at Not on file Legal Sex Male 9:55 AM CDT Gender Identity Not on file Sexual Orientation Not on file documented as of this encounter Plan of Treatment Not on file documented as of this encounter Procedures Procedure Name Priority Date/Time Associated Diagnosis Comments CBC W AUTO DIFFERENTIAL STAT 01/08/2021 4:30 AM ELECTRONICS TECHNICIAN TRIGLYCERIDES BLOOD STAT 01/08/2021 4 :30 AM ELECTRONICS TECHNICIAN COMPREHENSIVE METABOLIC PANEL STAT 01/08/2021 4:30 AM ELECTRONICS TECHNICIAN PHOSPHORUS BLOOD STAT 01/08/2021 4:30 AM ELECTRONICS TECHNICIAN documented in this encounter Results * (ABNORMAL) CBC WITH DIFFERENTIAL (01/08/2021 4:30 AM ELECTRONICS TECHNICIAN) WBC 5.8 4.4 - 10.7 x10E9/L 01/08/2021 11:51 AM ELECTRONICS TECHNICIAN [facility] WBC Corrected 01/08/2021 11:51 AM ELECTRONICS TECHNICIAN [facility] RBC 4.45 3.80 - 5.40 x10E12/L 01/08/2021 11:51 AM ELECTRONICS TECHNICIAN [facility] Hemoglobin 10.8(L) 12.0 - 17.6 gm/dL 01/08/2021 11:51 AM [facility] Hematocrit 37.6 35.2 - 51.7 % 01/08/2021 11:51 AM [facility] MCV 84.5 80.7 - 98.3 fl 01/08/2021 11:51 AM [facility] MCH 24.3(L) 26.7 - 34.0 pg 01/08/2021 11:51 AM [facility] MCHC 28.7(L) 30.8 - 35.9 gm/dL 01/08/2021 11:51 AM [facility] Platelet Count 403 153 - 416 x10E9/L 01/08/2021 11:51 AM [facility] RDW-CV 14.6 12.1 - 14.9 % 01/08/2021 11:51 AM [facility] MPV 12.4 9.4 - 12.9 fl 01/08/2021 11:51 AM [facility] Neutrophils % 62.6 44.0 - 73.0 % 01/08/2021 11:51 AM [facility] Lymphocytes % 24.8 20.0 - 43.0 % 01/08/2021 11:51 AM [facility] Monocytes % 8.4 5.0 - 13.0 % 01/08/2021 11:51 AM [facility] Eosinophils % 3.4 0.0 - 6.0 % 01/08/2021 11:51 AM [facility] Basophils % 0.5 0.0 - 2.0 % 01/08/2021 11:51 AM [facility] Immature Granulocytes 0.3 0 - 1 % 01/08/2021 11:51 AM [facility] Neutrophil Absolute 3.63 2.01 - 7.14 x10E9/L 01/08/2021 11:51 AM [facility] Lymphocytes Absolute 1.44 1.07 - 3.94 x10E9/L 01/08/2021 11:51 AM [facility] Monocytes Absolute 0.49 0.26 - 1.07 x10E9/L 01/08/2021 11:51 AM [facility] Eosinophils Absolute 0.20 0 - 0.47 x10E9/L 01/08/2021 11:51 AM ELECTRONICS TECHNICIAN [facility] Basophils Absolute 0.03 0 - 0.08 x10E9/L 01/08/2021 11:51 AM ELECTRONICS TECHNICIAN [facility] Immature Granulocytes Absolute 0.02 0.00 - 0.06 x10E9/L 01/08/2021 11:51 AM ELECTRONICS TECHNICIAN [facility] nRBC Auto 0 /100 WBC 01/08/2021 11:51 AM ELECTRONICS TECHNICIAN [facility] Blood BLOOD SPECIMEN / Unknown Venipuncture / Unknown 01/08/2021 4:30 AM ELECTRONICS TECHNICIAN 01/08/2021 10:48 AM ELECTRONICS TECHNICIAN us Kee Roe MD LAB - HEMATOLOGY ORDERABLES Baylee l Result Performing Organization Address [facility] Co de Phone Number [facility] [address] [place] [phone] * (ABNORMAL) TRIGLYCERIDES BLOOD (01/08/2021 4:30 AM ELECTRONICS TECHNICIAN) Triglycerides 168(H) <150 mg/dL 01/08/2021 12:28 PM ELECTRONICS TECHNICIAN [facility] Blood BLOOD SPECIMEN / Unknown Venipuncture / Unknown 01/08/2021 4:30 AM ELECTRONICS TECHNICIAN 01/08/2021 10:48 AM ELECTRONICS TECHNICIAN us Kee Roe MD LAB - CHEMISTRY ORDERABLES Final Result Performing Organization Address [facility] de Phone Number [facility] [address] [place] [phone] * (ABNORMAL) PHOSPHORUS BLOOD (01/08/2021 4:30 AM ELECTRONICS TECHNICIAN) Phosphorus 5.0(H) 2.3 - 4.7 mg/dL 01/08/2021 12:28 PM ELECTRONICS TECHNICIAN [facility] Blood BLOOD SPECIMEN / Unknown Venipuncture / Unknown 01/08/2021 4:30 AM ELECTRONICS TECHNICIAN 01/08/2021 10:48 AM ELECTRONICS TECHNICIAN us Kee Roe MD LAB - CHEMISTRY ORDERABLES Final Result Performing Organization Address [facility] Co de Phone Number [facility] [address] [place] [address] [place] [address] * (ABNORMAL) COMPREHENSIVE METABOLIC PANEL (01/08/2021 4:30 AM [facility]) [facility] Signature Glucose 95 70 - 105 mg/dL 01/08/2021 12:28 PM [facility] Sodium 134(L) 136 - 145 mmol/L 01/08/2021 12:28 PM [facility] Potassium 4.7 3.5 - 5.1 mmol/L 01/08/2021 12:28 PM [facility] Chloride 103 98 - 107 mmol/L 01/08/2021 12:28 PM [facility] CO2 18(L) 23 - 31 mmol/L 01/08/2021 12:28 PM [facility] Calcium 9.3 8.4 - 10.4 mg/dL 01/08/2021 12:28 PM [facility] Anion Gap 13 8 - 18 mmol/L 01/08/2021 12:28 PM [facility] BUN 35(H) 8.4 - 25.7 mg/dL 01/08/2021 12:28 PM [facility] Creatinine 0.81 0.72 - 1.25 mg/dL 01/08/2021 12:28 PM [facility] Alkaline Phosphatase 186(H) 40 - 150 U/L 01/08/2021 12:28 PM [facility] ALT 22 0 - 61 U/L 01/08/2021 12:28 PM [facility] AST 21 5 - 34 U/L 01/08/2021 12:28 PM [facility] Protein Total 7.5 6.4 - 8.3 gm/dL 01/08/2021 12:28 PM [facility] Albumin 3.4(L) 3.5 - 5.2 gm/dL 01/08/2021 12:28 PM [facility] Bilirubin Total 0.3 0.2 - 1.2 mg/dL 01/08/2021 12:28 PM [facility] eGFR by MDRD >60 >60 mL/min/1.7 3m2 01/08/2021 12:28 PM [facility] eGFR by MDRD >60 >60 mL/min/1.7 3m2 01/08/2021 12:28 PM [facility] Blood BLOOD SPECIMEN / Unknown Venipuncture / Unknown 01/08/2021 4:30 AM ELECTRONICS TECHNICIAN 01/08/2021 10:48 AM ELECTRONICS TECHNICIAN us Kee Roe MD LAB - CHEMISTRY ORDERABLES Final Result [facility] [address] [place] [address] documented in this encounter Visit Diagnoses Not on filedocumented in this encounter
--- OUTSIDE RECORDS SUMMARY | 2024-10-13 20:09 | XMS_ITS | Encounter Summary ---
Author Organization [facility] Address [address] [facility] [place] [address] Care Team Providers Care Patient Access Name Role Phone Unavailable Primary Care Provider Unavailabl e Encounter Details Date Type Department Care Team (Late st Contact Info) Description 12/03/2020 Lab Requisition [facility] [address] [place] [address] Kee Roe MD [address] [place] [address] Social History Tobacco Use Types [...] Procedure Name Priority Date/Time Associated Diagnosis Comments PTT STAT 12/03/2020 4:30 AM CDT PT-INR STAT 12/03/2020 4:30 AM CDT CBC W AUTO DIFFERENTIAL STAT 12/03/2020 4:30 AM CDT COMPREHENSIVE METABOLIC PANEL STAT 12/03/2020 4:30 AM CDT documented in this encounter Results * PTT (12/03/2020 4:30 AM CDT) PTT 36.8 23.0 - 38.4 sec 12/03/2020 10:38 AM CDT [facility] Blood BLOOD SPECIMEN / Unknown Venipuncture / Unknown 12/03/2020 4:30 AM CDT 12/03/2020 10:01 AM CDT Narrative [facility] - 12/03/2020 10:38 AM CDT Heparin Therapeutic Range for PTT: 69.0 - 110.0 seconds. Kee Roe MD LAB - COAGULATION ORDERABLES Nino ponce Result Performing Organization Address [facility] de Phone Number [facility] [address] [place], [place] [phone] * PT-INR (12/03/2020 4:30 AM CDT) Pathologist [facility] PT 14.0 12.1 - 14.8 sec 12/03/2020 10:37 AM CDT [facility] INR 1.1 0.9 - 1.1 12/03/2020 10:37 AM CDT [facility] Blood BLOOD SPECIMEN / Unknown Venipuncture / Unknown 12/03/2020 4:30 AM CDT 12/03/2020 10:01 AM CDT Narrative [facility] - 12/03/2020 10:37 AM CDT Conventional Warfarin Anticoagulant Therapy: INR Reference Range: 2.0-3.0 Intensive Warfarin Anticoagulant Therapy: INR Reference Range: 2.5-3.5 Kee Roe MD LAB - COAGULATION ORDERABLES Nino ponce Result Performing Organization Address [facility] de Phone Number [facility] [address] [place] [address] * (ABNORMAL) CBC WITH DIFFERENTIAL (12/03/2020 4:30 AM CDT) WBC 8.6 4.4 - 10.7 x10E9/L 12/03/2020 10:24 AM CDT [facility] WBC Corrected 12/03/2020 10:24 AM CDT [facility] RBC 3.36(L) 3.80 - 5.40 x10E12/L 12/03/2020 10:24 AM CDT [facility] Hemoglobin 9.3(L) 12.0 - 17.6 gm/dL 12/03/2020 10:24 AM CDT [facility] Hematocrit 31.6(L) 35.2 - 51.7 % 12/03/2020 10:24 AM CDT [facility] MCV 94.0 80.7 - 98.3 fl 12/03/2020 10:24 AM CDT [facility] MCH 27.7 26.7 - 34.0 pg 12/03/2020 10:24 AM CDT [facility] MCHC 29.4(L) 30.8 - 35.9 gm/dL 12/03/2020 10:24 AM CDT [facility] Platelet Count 299 153 - 416 x10E9/L 12/03/2020 10:24 AM CDT [facility] RDW-CV 14.1 12.1 - 14.9 % 12/03/2020 10:24 AM CDT [facility] MPV 12.6 9.4 - 12.9 fl 12/03/2020 10:24 AM CDT [facility] Neutrophils % 68.6 44.0 - 73.0 % 12/03/2020 10:24 AM CDT [facility] Lymphocytes % 19.5(L) 20.0 - 43.0 % 12/03/2020 10:24 AM CDT [facility] Monocytes % 6.7 5.0 - 13.0 % 12/03/2020 10:24 AM CDT [facility] Eosinophils % 4.4 0.0 - 6.0 % 12/03/2020 10:24 AM CDT [facility] Basophils % 0.4 0.0 - 2.0 % 12/03/2020 10:24 AM CDT [facility] Immature Granulocytes 0.4 0 - 1 % 12/03/2020 10:24 AM CDT [facility] Neutrophil Absolute 5.89 2.01 - 7.14 x10E9/L 12/03/2020 10:24 AM CDT [facility] Lymphocytes Absolute 1.67 1.07 - 3.94 x10E9/L 12/03/2020 10:24 AM CDT [facility] Monocytes Absolute 0.57 0.26 - 1.07 x10E9/L 12/03/2020 10:24 AM CDT [facility] Eosinophils Absolute 0.38 0 - 0.47 x10E9/L 12/03/2020 10:24 AM CDT [facility] Basophils Absolute 0.03 0 - 0.08 x10E9/L 12/03/2020 10:24 AM CDT [facility] Immature Granulocytes Absolute 0.03 0.00 - 0.06 x10E9/L 12/03/2020 10:24 AM CDT [facility] nRBC Auto 0 /100 WBC 12/03/2020 10:24 AM CDT [facility] Blood BLOOD SPECIMEN / Unknown Venipuncture / Unknown 12/03/2020 4:30 AM CDT 12/03/2020 10:01 AM CDT us Kee Roe MD LAB - HEMATOLOGY ORDERABLES Baylee small Result [facility] [address] [place] [address] * (ABNORMAL) COMPREHENSIVE METABOLIC PANEL (12/03/2020 4:30 AM CDT) Glucose 81 70 - 105 mg/dL 12/03/2020 10:47 AM [facility] Sodium 136 136 - 145 mmol/L 12/03/2020 10:47 AM [facility] Potassium 4.9 3.5 - 5.1 mmol/L 12/03/2020 10:47 AM CDT [facility] Chloride 99 98 - 107 mmol/L 12/03/2020 10:47 AM CDT [facility] CO2 23 23 - 31 mmol/L 12/03/2020 10:47 AM [facility] Calcium 9.1 8.4 - 10.4 mg/dL 12/03/2020 10:47 AM [facility] Anion Gap 14 8 - 18 mmol/L 12/03/2020 10:47 AM CDT [facility] BUN 21 8.4 - 25.7 mg/dL 12/03/2020 10:47 AM CDT [facility] Creatinine 0.94 0.72 - 1.25 mg/dL 12/03/2020 10:47 AM [facility] Alkaline Phosphatase 286(H) 40 - 150 U/L 12/03/2020 10:47 AM [facility] ALT 29 0 - 61 U/L 12/03/2020 10:47 AM [facility] AST 22 5 - 34 U/L 12/03/2020 10:47 AM [facility] Protein Total 6.3(L) 6.4 - 8.3 gm/dL 12/03/2020 10:47 AM CDT [facility] Albumin 3.0(L) 3.5 - 5.2 gm/dL 12/03/2020 10:47 AM CDT [facility] Bilirubin Total 0.4 0.2 - 1.2 mg/dL 12/03/2020 10:47 AM CDT [facility] eGFR by MDRD >60 >60 mL/min/1.7 3m2 12/03/2020 10:47 AM CDT [facility] eGFR by MDRD >60 >60 mL/min/1.7 3m2 12/03/2020 10:47 AM CDT [facility] Blood BLOOD SPECIMEN / Unknown Venipuncture / Unknown 12/03/2020 4:30 AM CDT 12/03/2020 10:01 AM CDT us Kee Roe MD LAB - CHEMISTRY ORDERABLES Final Result Performing Organization Address City/State/[facility] Co de Phone Number [facility] [address] [place], [place] [phone] documented in this encounter Visit Diagnoses Not on filedocumented in this encounter
--- OUTSIDE RECORDS SUMMARY | 2024-10-13 20:09 | XMS_ITS | Encounter Summary ---
Author Organization [facility] Address [address] [place] [address] Care Team Providers Care Medical Director Occupational Health Name Role Phone Unavailable Primary Care Provider Unavailabl e Encounter Details Date Type Department Care Team (Late st Contact Info) Description 12/31/2020 Lab Requisition [facility] [address] [place] [address] [place] [address] [place] [address] Social History Tobacco Use Types Packs/Day Years [...] Procedure Name Priority Date/Time Associated Diagnosis Comments RENAL FUNCTION PANEL STAT 12/31/2020 3:00 AM DISTRICT PLANT SUPERINTENDENT documented in this encounter Results * (ABNORMAL) RENAL FUNCTION PANEL (12/31/2020 3:00 AM DISTRICT PLANT SUPERINTENDENT) Glucose 94 70 - 105 mg/dL 12/31/2020 10:00 AM DISTRICT PLANT SUPERINTENDENT [facility] Sodium 132(L) 136 - 145 mmol/L 12/31/2020 10:00 AM DISTRICT PLANT SUPERINTENDENT [facility] Potassium 5.2(H) 3.5 - 5.1 mmol/L 12/31/2020 10:00 AM DISTRICT PLANT SUPERINTENDENT [facility] Chloride 98 98 - 107 mmol/L 12/31/2020 10:00 AM DISTRICT PLANT SUPERINTENDENT [facility] CO2 22(L) 23 - 31 mmol/L 12/31/2020 10:00 AM DISTRICT PLANT SUPERINTENDENT [facility] Calcium 8.8 8.4 - 10.4 mg/dL 12/31/2020 10:00 AM [facility] Anion Gap 12 8 - 18 mmol/L 12/31/2020 10:00 AM [facility] BUN 18 8.4 - 25.7 mg/dL 12/31/2020 10:00 AM [facility] Creatinine 0.86 0.72 - 1.25 mg/dL 12/31/2020 10:00 AM [facility] Albumin 3.1(L) 3.5 - 5.2 gm/dL 12/31/2020 10:00 AM [facility] Phosphorus 6.1(H) 2.3 - 4.7 mg/dL 12/31/2020 10:00 AM [facility] eGFR by MDRD >60 >60 mL/min/1.7 3m2 12/31/2020 10:00 AM [facility] eGFR by MDRD >60 >60 mL/min/1.7 3m2 12/31/2020 10:00 AM [facility] Blood BLOOD SPECIMEN / Unknown Venipuncture / Unknown 12/31/2020 3:00 AM DISTRICT PLANT SUPERINTENDENT 12/31/2020 9:16 AM [facility] us Julio Munoz MD LAB - CHEMISTRY ORDERABLES Fi nal Result Performing Organization Address City/State/[facility] Co de Phone Number [facility] [address] [place] [address] documented in this encounter Visit Diagnoses Not on filedocumented in this encounter
--- OUTSIDE RECORDS SUMMARY | 2024-10-13 20:09 | XMS_ITS | Encounter Summary ---
Author Organization [facility] Address [address] [facility] [place] [address] Care Team Providers Care Oil Refinery Operator Name Role Phone Unavailable Primary Care Provider Unavailabl e Encounter Details Date Type Department Care Team (Late st Contact Info) Description 12/04/2020 Lab Requisition [facility] [address] [place] [address] Kee Roe MD [address] [place] [address] Social History Tobacco Use Types [...] Diagnosis Comments CBC W AUTO DIFFERENTIAL STAT 12/04/2020 3:28 AM CDT TRIGLYCERIDES BLOOD STAT 12/04/2020 3 :28 AM CDT COMPREHENSIVE METABOLIC PANEL STAT 12/04/2020 3:28 AM CDT PHOSPHORUS BLOOD STAT 12/04/2020 3:28 AM CDT MAGNESIUM BLOOD STAT 12/04/2020 3:28 AM CDT documented in this encounter Results * MAGNESIUM BLOOD (12/04/2020 3:28 AM CDT) Magnesium 1.9 1.6 - 2.6 mg/dL 12/05/2020 8:23 AM CDT [facility] Blood BLOOD SPECIMEN / Unknown Venipuncture / Unknown 12/04/2020 3:28 AM CDT 12/05/2020 8:02 AM CDT us Kee Roe MD LAB - CHEMISTRY ORDERABLES Final Result Performing Organization Address [facility]/ZIP Co de Phone Number [facility] [address] [place] [phone] * (ABNORMAL) TRIGLYCERIDES BLOOD (12/04/2020 3:28 AM CDT) Triglycerides 170(H) <150 mg/dL 12/04/2020 3:47 PM CDT [facility] Blood BLOOD SPECIMEN / Unknown Venipuncture / Unknown 12/04/2020 3:28 AM CDT 12/04/2020 2:46 PM CDT us Kee Roe MD LAB - CHEMISTRY ORDERABLES Final Result Performing Organization Address [facility] Co de Phone Number [facility] [address] [place] [phone] * (ABNORMAL) PHOSPHORUS BLOOD (12/04/2020 3:28 AM CDT) Phosphorus 6.0(H) 2.3 - 4.7 mg/dL 12/04/2020 3:47 PM CDT [facility] Blood BLOOD SPECIMEN / Unknown Venipuncture / Unknown 12/04/2020 3:28 AM CDT 12/04/2020 2:46 PM CDT us Kee Roe MD LAB - CHEMISTRY ORDERABLES Final Result Performing Organization Address [facility]/ZIP Co de Phone Number [facility] [address] [place] [phone] * (ABNORMAL) COMPREHENSIVE METABOLIC PANEL (12/04/2020 3:28 AM CDT) Glucose 93 70 - 105 mg/dL 12/04/2020 3:47 PM CDT [facility] Sodium 136 136 - 145 mmol/L 12/04/2020 3:47 PM CDT [facility] Potassium 5.3(H) 3.5 - 5.1 mmol/L 12/04/2020 3:47 PM CDT [facility] Chloride 100 98 - 107 mmol/L 12/04/2020 3:47 PM CDT [facility] CO2 21(L) 23 - 31 mmol/L 12/04/2020 3:47 PM CDT [facility] Calcium 9.2 8.4 - 10.4 mg/dL 12/04/2020 3:47 PM CDT [facility] Anion Gap 15 8 - 18 mmol/L 12/04/2020 3:47 PM CDT [facility] BUN 24 8.4 - 25.7 mg/dL 12/04/2020 3:47 PM CDT [facility] Creatinine 0.92 0.72 - 1.25 mg/dL 12/04/2020 3:47 PM CDT [facility] Alkaline Phosphatase 251(H) 40 - 150 U/L 12/04/2020 3:47 PM CDT [facility] ALT 25 0 - 61 U/L 12/04/2020 3:47 PM CDT [facility] AST 22 5 - 34 U/L 12/04/2020 3:47 PM CDT [facility] Protein Total 6.6 6.4 - 8.3 gm/dL 12/04/2020 3:47 PM CDT [facility] Albumin 3.0(L) 3.5 - 5.2 gm/dL 12/04/2020 3:47 PM CDT [facility] Bilirubin Total 0.3 0.2 - 1.2 mg/dL 12/04/2020 3:47 PM CDT [facility] eGFR by MDRD >60 >60 mL/min/1.7 3m2 12/04/2020 3:47 PM CDT [facility] eGFR by MDRD >60 >60 mL/min/1.7 3m2 12/04/2020 3:47 PM CDT [facility] Blood BLOOD SPECIMEN / Unknown Venipuncture / Unknown 12/04/2020 3:28 AM CDT 12/04/2020 2:46 PM CDT us Kee Roe MD LAB - CHEMISTRY ORDERABLES Final Result [facility] [address] [place] [address] * (ABNORMAL) CBC WITH DIFFERENTIAL (12/04/2020 3:28 AM CDT) [facility] WBC 8.2 4.4 - 10.7 x10E9/L 12/04/2020 3:24 PM CDT [facility] WBC Corrected 12/04/2020 3:24 PM CDT [facility] RBC 3.47(L) 3.80 - 5.40 x10E12/L 12/04/2020 3:24 PM CDT [facility] Hemoglobin 9.5(L) 12.0 - 17.6 gm/dL 12/04/2020 3:24 PM CDT [facility] Hematocrit 33.2(L) 35.2 - 51.7 % 12/04/2020 3:24 PM CDT [facility] MCV 95.7 80.7 - 98.3 fl 12/04/2020 3:24 PM CDT [facility] MCH 27.4 26.7 - 34.0 pg 12/04/2020 3:24 PM CDT [facility] MCHC 28.6(L) 30.8 - 35.9 gm/dL 12/04/2020 3:24 PM CDT [facility] Platelet Count 256 153 - 416 x10E9/L 12/04/2020 3:24 PM CDT [facility] RDW-CV 14.4 12.1 - 14.9 % 12/04/2020 3:24 PM CDT [facility] MPV 12.9 9.4 - 12.9 fl 12/04/2020 3:24 PM CDT [facility] Neutrophils % 67.1 44.0 - 73.0 % 12/04/2020 3:24 PM CDT [facility] Lymphocytes % 19.1(L) 20.0 - 43.0 % 12/04/2020 3:24 PM CDT [facility] Monocytes % 7.5 5.0 - 13.0 % 12/04/2020 3:24 PM CDT [facility] Eosinophils % 5.9 0.0 - 6.0 % 12/04/2020 3:24 PM CDT [facility] Basophils % 0.2 0.0 - 2.0 % 12/04/2020 3:24 PM CDT [facility] Immature Granulocytes 0.2 0 - 1 % 12/04/2020 3:24 PM CDT [facility] Neutrophil Absolute 5.46 2.01 - 7.14 x10E9/L 12/04/2020 3:24 PM CDT [facility] Lymphocytes Absolute 1.56 1.07 - 3.94 x10E9/L 12/04/2020 3:24 PM CDT [facility] Monocytes Absolute 0.61 0.26 - 1.07 x10E9/L 12/04/2020 3:24 PM CDT [facility] Eosinophils Absolute 0.48(H) 0 - 0.47 x10E9/L 12/04/2020 3:24 PM CDT [facility] Basophils Absolute 0.02 0 - 0.08 x10E9/L 12/04/2020 3:24 PM CDT [facility] Immature Granulocytes Absolute 0.02 0.00 - 0.06 x10E9/L 12/04/2020 3:24 PM CDT [facility] nRBC Auto 0 /100 WBC 12/04/2020 3:24 PM CDT [facility] Blood BLOOD SPECIMEN / Unknown Venipuncture / Unknown 12/04/2020 3:28 AM CDT 12/04/2020 2:42 PM CDT us Kee Roe MD LAB - HEMATOLOGY ORDERABLES Baylee small Result Performing Organization Address City/State/[facility] Co de Phone Number [facility] [address], [place] [id number] documented in this encounter Visit Diagnoses Not on filedocumented in this encounter
--- OUTSIDE RECORDS SUMMARY | 2024-10-13 20:09 | XMS_ITS | Encounter Summary ---
Author Organization [facility] Health Address [address] [place] [address] Care Team Providers Care Email Marketer Name Role Phone Unavailable Primary Care Provider Unavailabl e Encounter Details Date Type Department Care Team (Late st Contact Info) Description 01/04/2021 Lab Requisition [facility] [address] [place] [address] [place] [address] [place] [address] Social History Tobacco Use Types Packs/Day Years [...] Procedure Name Priority Date/Time Associated Diagnosis Comments PHOSPHORUS BLOOD STAT 01/04/2021 4:35 AM PAIRER ODDS documented in this encounter Results * PHOSPHORUS BLOOD (01/04/2021 4:35 AM PAIRER ODDS) Phosphorus 4.5 2.3 - 4.7 mg/dL 01/04/2021 9:51 AM PAIRER ODDS [facility] Blood BLOOD SPECIMEN / Unknown Venipuncture / Unknown 01/04/2021 4:35 AM PAIRER ODDS 01/04/2021 9:17 AM PAIRER ODDS us Kwame Arana MD LAB - CHEMISTRY ORDERABLES Final Result [facility] [address] [place] [address] documented in this encounter Visit Diagnoses Not on filedocumented in this encounter
--- OUTSIDE RECORDS SUMMARY | 2024-10-13 20:09 | XMS_ITS | Encounter Summary ---
Author Organization [facility] Address [address] [place] [address] Care Team Providers Care Counselor Supervisor Name Role Phone Unavailable Primary Care Provider Unavailabl e Encounter Details Date Type Department Care Team (Late st Contact Info) Description 12/18/2020 Lab Requisition [facility] [address] [place] [address] Kee Roe MD [address] [place] [address] Social History Tobacco Use Types [...] Diagnosis Comments CBC W AUTO DIFFERENTIAL STAT 12/18/2020 3:30 AM CHIEF OPERATOR REFORMER TRIGLYCERIDES BLOOD STAT 12/18/2020 3 :30 AM CHIEF OPERATOR REFORMER COMPREHENSIVE METABOLIC PANEL STAT 12/18/2020 3:30 AM CHIEF OPERATOR REFORMER PHOSPHORUS BLOOD STAT 12/18/2020 3:30 AM CHIEF OPERATOR REFORMER documented in this encounter Results * (ABNORMAL) CBC WITH DIFFERENTIAL (12/18/2020 3:30 AM CHIEF OPERATOR REFORMER) WBC 6.6 4.4 - 10.7 x10E9/L 12/18/2020 1:05 PM CHIEF OPERATOR REFORMER [facility] WBC Corrected 12/18/2020 1:05 PM CHIEF OPERATOR REFORMER [facility] RBC 3.31(L) 3.80 - 5.40 x10E12/L 12/18/2020 1:05 PM CHIEF OPERATOR REFORMER [facility] Hemoglobin 8.5(L) 12.0 - 17.6 gm/dL 12/18/2020 1:[address] [facility] Hematocrit 29.3(L) 35.2 - 51.7 % 12/18/2020 1:[address] [facility] MCV 88.5 80.7 - 98.3 fl 12/18/2020 1:[address] [facility] MCH 25.7(L) 26.7 - 34.0 pg 12/18/2020 1:[address] [facility] MCHC 29.0(L) 30.8 - 35.9 gm/dL 12/18/2020 1:[address] [facility] Platelet Count 137(L) 153 - 416 x10E9/L 12/18/2020 1:[address] [facility] RDW-CV 14.5 12.1 - 14.9 % 12/18/2020 1:[address] [facility] MPV 14.3(H) 9.4 - 12.9 fl 12/18/2020 1:[address] [facility] Neutrophils % 76.9(H) 44.0 - 73.0 % 12/18/2020 1:[address] [facility] Lymphocytes % 13.9(L) 20.0 - 43.0 % 12/18/2020 1:[address] [facility] Monocytes % 7.8 5.0 - 13.0 % 12/18/2020 1:[address] [facility] Eosinophils % 0.6 0.0 - 6.0 % 12/18/2020 1:[address] [facility] Basophils % 0.2 0.0 - 2.0 % 12/18/2020 1:[address] [facility] Immature Granulocytes 0.6 0 - 1 % 12/18/2020 1:[address] [facility] Neutrophil Absolute 5.05 2.01 - 7.14 x10E9/L 12/18/2020 1:[address] [facility] Lymphocytes Absolute 0.91(L) 1.07 - 3.94 x10E9/L 12/18/2020 1:[address] [facility] Monocytes Absolute 0.51 0.26 - 1.07 x10E9/L 12/18/2020 1:[address] [facility] Eosinophils Absolute 0.04 0 - 0.47 x10E9/L 12/18/2020 1:05 PM CHIEF OPERATOR REFORMER [facility] Basophils Absolute 0.01 0 - 0.08 x10E9/L 12/18/2020 1:05 PM CHIEF OPERATOR REFORMER [facility] Immature Granulocytes Absolute 0.04 0.00 - 0.06 x10E9/L 12/18/2020 1:05 PM CHIEF OPERATOR REFORMER [facility] nRBC Auto 0 /100 WBC 12/18/2020 1:05 PM CHIEF OPERATOR REFORMER [facility] Blood BLOOD SPECIMEN / Unknown Venipuncture / Unknown 12/18/2020 3:30 AM CHIEF OPERATOR REFORMER 12/18/2020 12:32 PM CHIEF OPERATOR REFORMER us Kee Roe MD LAB - HEMATOLOGY ORDERABLES Baylee l Result Performing Organization Address [facility] Co de Phone Number [facility] [address] [place] [phone] * (ABNORMAL) TRIGLYCERIDES BLOOD (12/18/2020 3:30 AM CHIEF OPERATOR REFORMER) Triglycerides 167(H) <150 mg/dL 12/18/2020 1:20 PM CHIEF OPERATOR REFORMER [facility] Blood BLOOD SPECIMEN / Unknown Venipuncture / Unknown 12/18/2020 3:30 AM CHIEF OPERATOR REFORMER 12/18/2020 12:32 PM CHIEF OPERATOR REFORMER us Kee Roe MD LAB - CHEMISTRY ORDERABLES Final Result Performing Organization Address City/[facility]/ZIP Co de Phone Number [facility] [address] [place] [phone] * PHOSPHORUS BLOOD (12/18/2020 3:30 AM CHIEF OPERATOR REFORMER) Phosphorus 3.3 2.3 - 4.7 mg/dL 12/18/2020 1:20 PM CHIEF OPERATOR REFORMER [facility] Blood BLOOD SPECIMEN / Unknown Venipuncture / Unknown 12/18/2020 3:30 AM CHIEF OPERATOR REFORMER 12/18/2020 12:32 PM CHIEF OPERATOR REFORMER us Kee Roe MD LAB - CHEMISTRY ORDERABLES Final Result [facility] [address] [place] [address] * (ABNORMAL) COMPREHENSIVE METABOLIC PANEL (12/18/2020 3:30 AM CHIEF OPERATOR REFORMER) Glucose 115(H) 70 - 105 mg/dL 12/18/2020 1:[address] [facility] Sodium 135(L) 136 - 145 mmol/L 12/18/2020 1:[address] [facility] Potassium 3.7 3.5 - 5.1 mmol/L 12/18/2020 1:[address] [facility] Chloride 104 98 - 107 mmol/L 12/18/2020 1:[address] [facility] CO2 20(L) 23 - 31 mmol/L 12/18/2020 1:[address] [facility] Calcium 8.0(L) 8.4 - 10.4 mg/dL 12/18/2020 1:[address] [facility] Anion Gap 11 8 - 18 mmol/L 12/18/2020 1:[address] [facility] BUN 14 8.4 - 25.7 mg/dL 12/18/2020 1:[address] [facility] Creatinine 0.76 0.72 - 1.25 mg/dL 12/18/2020 1:[address] [facility] Alkaline Phosphatase 258(H) 40 - 150 U/L 12/18/2020 1:[address] [facility] ALT 25 0 - 61 U/L 12/18/2020 1:[address] [facility] AST 20 5 - 34 U/L 12/18/2020 1:[address] [facility] Protein Total 5.5(L) 6.4 - 8.3 gm/dL 12/18/2020 1:[address] [facility] Albumin 2.5(L) 3.5 - 5.2 gm/dL 12/18/2020 1:[address] [facility] Bilirubin Total 0.4 0.2 - 1.2 mg/dL 12/18/2020 1:[address] [facility] eGFR by MDRD >60 >60 mL/min/1.7 3m2 12/18/2020 1:[address] [facility] eGFR by MDRD >60 >60 mL/min/1.7 3m2 12/18/2020 1:20 PM CHIEF OPERATOR REFORMER [facility] Blood BLOOD SPECIMEN / Unknown Venipuncture / Unknown 12/18/2020 3:30 AM CHIEF OPERATOR REFORMER 12/18/2020 12:32 PM CHIEF OPERATOR REFORMER us Kee Roe MD LAB - CHEMISTRY ORDERABLES Final Result Performing Organization Address City/State/[facility] Co de Phone Number [facility] [address] [place] [address] documented in this encounter Visit Diagnoses Not on filedocumented in this encounter
--- OUTSIDE RECORDS SUMMARY | 2024-10-13 20:09 | XMS_ITS | Encounter Summary ---
Author Organization [facility] Health Address [address] [place] [address] Care Team Providers Care Coal Carrier Name Role Phone Unavailable Primary Care Provider Unavailabl e Encounter Details Date Type Department Care Team (Late st Contact Info) Description 12/23/2020 Lab Requisition [facility] [address] [place] [address] Rich Bishop MD [address] [place] [address] Social History Tobacco Use Types Packs/Day Years [...] Procedure Name Priority Date/Time Associated Diagnosis Comments VANCOMYCIN LEVEL TROUGH STAT 12/23/2020 3:30 AM NATIONAL SALES EXECUTIVE documented in this encounter Results * (ABNORMAL) VANCOMYCIN LEVEL TROUGH (12/23/2020 3:30 AM NATIONAL SALES EXECUTIVE) Vancomycin Trough 21.2(H) 10.0 - 20.0 ug/mL 12/23/2020 9:47 AM NATIONAL SALES EXECUTIVE [facility] Blood BLOOD SPECIMEN / Unknown Venipuncture / Unknown 12/23/2020 3:30 AM NATIONAL SALES EXECUTIVE 12/23/2020 9:02 AM NATIONAL SALES EXECUTIVE us Rich Bishop MD LAB - CHEMISTRY ORDERABLES Final Result [facility] [address] [place] [address] documented in this encounter Visit Diagnoses Not on filedocumented in this encounter
--- OUTSIDE RECORDS SUMMARY | 2024-10-13 20:09 | XMS_ITS | Clinical Summary ---
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
--- OUTSIDE RECORDS SUMMARY | 2024-10-13 20:09 | XMS_ITS | Encounter Summary ---
Author Organization [facility] Healthcare Address [address] [place] [address] Care Team Providers Care Beauty Therapist Name Role Phone Bradford Martines MD Unavailable [phone] Byron Peterson MD Primary Care Provider [phone] Sofia Gillespie OT Unavailable Geovani CHILDERS MD, Jak Johnson Unavailable [phone] Nettie Robles FERRY PILOT Unavailable Encounter Details Date Type Department Care Team (Late st Contact Info) Description 10/11/2024 Results Follow-Up [facility] Primary Care at [address] [address] Byron Peterson MD [address] [place] [address] Hemoglobin A1c, Lipid panel, Comprehensive metabolic panel, Additional followed-up results: 6 Social History Tobacco Use Types Packs/Day Years Used Date Smoking Tobacco: Every Day Cigarettes 1 42.4 Started: 1981; Last attempted to quit: 02/19/2022 Passive Smoke Exposure: Past Smokeless Tobacco: Never Comments:Smokes a pack a day Alcohol Use Standard Drinks/Week Comments Yes 0 (1 standard drink = 0.6 oz pur e alcohol) rare Social Connection and Isolation Panel Answer Date Recorded In a typical week, how many times do you talk on the phone with family, friends, or neighbors? More than three times a week 03/10/2022 How often do you get togethe r with friends or relatives? More than three times a week 03/10/2022 How often do you attend chur ch or advent services? Never 03/10/2022 Do you belong to any clubs o r organizations such as sikh groups, unions, fraternal or athletic groups, or school groups? No 03/10/2022 How often do you attend meet ings of the clubs or organizations you belong to? Never 03/10/2022 Are you , , di vorced, , never , or living with a partner? 03/10/2022 AUDIT-C Answer Date Recorded Q1: How often do you have a drink containing alc ohol? 2-4 times a month 08/28/2024 Q2: How many drinks containi ng alcohol do you have on a typical day when you are drinking? 1 or 2 08/28/2024 Q3: How often do you have si x or more drinks on one occasion? Never 08/28/2024 Overall Financial Resource Strain (CARDIA) Answe r Date Recorded How hard is it for you to pa y for the very basics like food, housing, medical care, and heating? Not hard at all 03/10/2022 PHQ-2 Answer Date Recorded PHQ-2 Total Score (If total score is 3 or more points, staff should administer the PHQ-9) 6 09/07/2024 Hunger Vital Sign Answer Date Recorded Within the past 12 months, y ou worried that your food would run out before you got the money to buy more. Never true 08/29/19 25 Within the past 12 months, t he food you bought just didn't last and you didn't have money to get more. Never true 08/28/2024 PRAPARE - Transportation Answer Date Re corded In the past 12 months, has l ack of transportation kept you from medical appointments or from getting medications? No 02/2022 In the past 12 months, has l ack of transportation kept you from meetings, work, or from getting things needed for daily living? No 03/10/2022 Housing Stability Vital Sign Answer Duong e Recorded In the last 12 months, was t here a time when you were not able to pay the mortgage or rent on time? No 02/03/2022 In the last 12 months, how many places have you lived? 1 02/03/2022 In the last 12 months, was t here a time when you did not have a steady place to sleep or slept in a half-way (including now)? No 02/03/2022 PHQ-9 Answer Date Recorded PHQ-9 Total Score 9 09/07/2024 Personal Safety Answer Date Recorded Have you ever been in or are you currently in a harmful physical or emotional relationship or is someone making you feel afraid or unsafe? 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 [address] [address] Nurse Practitioner Plastic Surgery 09/07/24 documented as of this encounter
--- OUTSIDE RECORDS SUMMARY | 2024-10-13 20:09 | XMS_ITS | Encounter Summary ---
Author Organization [facility] Address [address] [facility] [place] [address] Care Team Providers Care Ctc Operator Name Role Phone Unavailable Primary Care Provider Unavailabl e Encounter Details Date Type Department Care Team (Late st Contact Info) Description 01/12/2021 Lab Requisition [facility] [address] [place] [address] Anthony Dinh MD [address] [place], [place] [id number] Social History Tobacco Use Types Packs/Day Years [...] Procedure Name Priority Date/Time Associated Diagnosis Comments ERYTHROCYTE SEDIMENTATION RATE Routine 01/12/2021 3:20 AM HEATING PLANT SUPERINTENDENT CBC W AUTO DIFFERENTIAL Routine 01/12/2021 3:20 AM HEATING PLANT SUPERINTENDENT COMPREHENSIVE METABOLIC PANEL Routine 01/12/2021 3:20 AM HEATING PLANT SUPERINTENDENT MAGNESIUM BLOOD Routine 01/12/2021 3:20 AM HEATING PLANT SUPERINTENDENT documented in this encounter Results * (ABNORMAL) ERYTHROCYTE SEDIMENTATION RATE (01/12/2021 3:20 AM HEATING PLANT SUPERINTENDENT) Erythrocyte Sedimentation Rate Automated 58(H) 0 - 20 MM/HR 01/12/2021 1:09 PM HEATING PLANT SUPERINTENDENT [facility] Blood BLOOD SPECIMEN / Unknown Venipuncture / Unknown 01/12/2021 3:20 AM HEATING PLANT SUPERINTENDENT 01/12/2021 12:05 PM HEATING PLANT SUPERINTENDENT us Anthony Dinh MD LAB - HEMATOLOGY ORDERABLES F inal Result Performing Organization Address City/[facility]/ZIP Co de Phone Number [facility] [address] [place], [place] [phone] * MAGNESIUM BLOOD (01/12/2021 3:20 AM HEATING PLANT SUPERINTENDENT) [facility] Magnesium 1.8 1.6 - 2.6 mg/dL 01/12/2021 12:53 PM [facility] Blood BLOOD SPECIMEN / Unknown Venipuncture / Unknown 01/12/2021 3:20 AM HEATING PLANT SUPERINTENDENT 01/12/2021 12:05 PM HEATING PLANT SUPERINTENDENT us Anthony Dinh MD LAB - CHEMISTRY ORDERABLES Fi nal Result Performing Organization Address [facility] Co de Phone Number [facility] [address] [place] [phone] * (ABNORMAL) COMPREHENSIVE METABOLIC PANEL (01/12/2021 3:20 AM HEATING PLANT SUPERINTENDENT) [facility] Glucose 349(H) 70 - 105 mg/dL 01/12/2021 12:53 PM [facility] Sodium 130(L) 136 - 145 mmol/L 01/12/2021 12:53 PM [facility] Potassium 4.6 3.5 - 5.1 mmol/L 01/12/2021 12:53 PM [facility] Chloride 100 98 - 107 mmol/L 01/12/2021 12:53 PM [facility] CO2 19(L) 23 - 31 mmol/L 01/12/2021 12:53 PM [facility] Calcium 9.3 8.4 - 10.4 mg/dL 01/12/2021 12:53 PM [facility] Anion Gap 11 8 - 18 mmol/L 01/12/2021 12:53 PM [facility] BUN 32(H) 8.4 - 25.7 mg/dL 01/12/2021 12:53 PM [facility] Creatinine 0.84 0.72 - 1.25 mg/dL 01/12/2021 12:53 PM [facility] Alkaline Phosphatase 189(H) 40 - 150 U/L 01/12/2021 12:53 PM [facility] ALT 28 0 - 61 U/L 01/12/2021 12:53 PM [facility] AST 24 5 - 34 U/L 01/12/2021 12:53 PM [facility] Protein Total 6.8 6.4 - 8.3 gm/dL 01/12/2021 12:53 PM [facility] Albumin 3.2(L) 3.5 - 5.2 gm/dL 01/12/2021 12:53 PM [facility] Bilirubin Total 0.3 0.2 - 1.2 mg/dL 01/12/2021 12:53 PM [facility] eGFR by MDRD >60 >60 mL/min/1.7 3m2 01/12/2021 12:53 PM [facility] eGFR by MDRD >60 >60 mL/min/1.7 3m2 01/12/2021 12:53 PM [facility] Blood BLOOD SPECIMEN / Unknown Venipuncture / Unknown 01/12/2021 3:20 AM HEATING PLANT SUPERINTENDENT 01/12/2021 12:05 PM HEATING PLANT SUPERINTENDENT us Anthony Dinh MD LAB - CHEMISTRY ORDERABLES Fi nal Result [facility] [address] [place] [address] * (ABNORMAL) CBC WITH DIFFERENTIAL (01/12/2021 3:20 AM HEATING PLANT SUPERINTENDENT) WBC 6.7 4.4 - 10.7 x10E9/L 01/12/2021 12:29 PM [facility] WBC Corrected 01/12/2021 12:29 PM [facility] RBC 4.22 3.80 - 5.40 x10E12/L 01/12/2021 12:29 PM [facility] Hemoglobin 10.2(L) 12.0 - 17.6 gm/dL 01/12/2021 12:29 PM [facility] Hematocrit 35.9 35.2 - 51.7 % 01/12/2021 12:29 PM [facility] MCV 85.1 80.7 - 98.3 fl 01/12/2021 12:29 PM [facility] MCH 24.2(L) 26.7 - 34.0 pg 01/12/2021 12:29 PM [facility] MCHC 28.4(L) 30.8 - 35.9 gm/dL 01/12/2021 12:29 PM [facility] Platelet Count 366 153 - 416 x10E9/L 01/12/2021 12:29 PM [facility] RDW-CV 14.7 12.1 - 14.9 % 01/12/2021 12:29 PM [facility] MPV 12.9 9.4 - 12.9 fl 01/12/2021 12:29 PM [facility] Neutrophils % 61.6 44.0 - 73.0 % 01/12/2021 12:29 PM [facility] Lymphocytes % 23.8 20.0 - 43.0 % 01/12/2021 12:29 PM [facility] Monocytes % 9.2 5.0 - 13.0 % 01/12/2021 12:29 PM [facility] Eosinophils % 4.6 0.0 - 6.0 % 01/12/2021 12:29 PM [facility] Basophils % 0.4 0.0 - 2.0 % 01/12/2021 12:29 PM [facility] Immature Granulocytes 0.4 0 - 1 % 01/12/2021 12:29 PM [facility] Neutrophil Absolute 4.14 2.01 - 7.14 x10E9/L 01/12/2021 12:29 PM [facility] Lymphocytes Absolute 1.60 1.07 - 3.94 x10E9/L 01/12/2021 12:29 PM [facility] Monocytes Absolute 0.62 0.26 - 1.07 x10E9/L 01/12/2021 12:29 PM [facility] Eosinophils Absolute 0.31 0 - 0.47 x10E9/L 01/12/2021 12:29 PM [facility] Basophils Absolute 0.03 0 - 0.08 x10E9/L 01/12/2021 12:29 PM [facility] Immature Granulocytes Absolute 0.03 0.00 - 0.06 x10E9/L 01/12/2021 12:29 PM [facility] nRBC Auto 0 /100 WBC 01/12/2021 12:29 PM HEATING PLANT SUPERINTENDENT [facility] Blood BLOOD SPECIMEN / Unknown Venipuncture / Unknown 01/12/2021 3:20 AM HEATING PLANT SUPERINTENDENT 01/12/2021 12:05 PM HEATING PLANT SUPERINTENDENT us Anthony Dinh MD LAB - HEMATOLOGY ORDERABLES F inal Result [facility] [address] [place] [address] documented in this encounter Visit Diagnoses Not on filedocumented in this encounter
--- OUTSIDE RECORDS SUMMARY | 2024-10-13 20:09 | XMS_ITS | Clinical Summary ---
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 - Start oral doxcycyline 100mg BID; SER including GI upset (take with food), esophagitis (take with full glass of water and 30min prior to laying down), photosensitivity, idiopathic intracranial hypertension -steroid injections Patient to follow-up with Dermatology outpatient upon discharge. Dermatology will arrange follow-up. Outpatient ambulatory referral made to Dermatology. Discharge planning issues 05/05/2022 Assessment & Plan (05/10/2022 11:53 AM CDT): 05/05 Patient medically stable for discharge, TRISL pending insurance auth ---Insurance requesting peer to peer, denied. SW updated, pending decision for possible appeal and backup SNF referrals 05/06 Appeal for TRISL pending, new updates to be sent to patient's preferred SNFs as backups 05/07 Rehabilitation appeal approved, awaiting in patient rehab placement. 05/10 Discharge to [facility] today. Difficult intubation 03/26/2022 023 Assessment & Plan (03/26/2022 1:12 PM CHAIN SAW DRIVER): CPAP evaluation done on 03/22/22 Noted difficult intubation based on charting from ---Case discussed w/ CPAP attending, Dr. Umesh Nieves - Hx of Difficult Intubation in 2017 and in 2019- video laryngoscopy with cricoid pressure, CMAC with blade size 4D Fungemia 03/25/2022 10/26/2023 Assessment & Plan (03/26/2022 1:15 PM CHAIN SAW DRIVER): 03/26 Microbiology addendum, NO yeast noted in blood cultures, micafungin discontinued RESOLVED UTI (urinary tract infection) 03/25/2022 10/26/2023 Assessment & Plan (04/26/2022 1:14 PM CDT): 01/2022 CT AP on prior admission noted asymmetric bladder thickening; amb referral sent to urology upon discharge 02/15/22 Urology clinic note: normal cystoscopy; pending cytology results; thickening likely 2/2 abdominal inflammation 03/23 +UA; reflexed to culture, UCx Enterobacter aerogenes ---Patient denying symptoms of dysuria; initially sent home on PO macrobid SEE VRE BACTEREMIA FOR ANTIBIOTIC COURSE H/O fall 03/25/2022 10/26/2023 Assessment & Plan (05/07/2022 10:27 AM CDT): History of fall at home down stairs (approx 03/05/22), evaluated at local ED noted OA, no acute fracture Outpatient ED recommended PT/OT Patient noted consistent pain; surveillance XR ordered PT OT ordered while admitted -Patient/family noted that patient was evaluated by PCP after fall, was prescribed medrol dose hanna for hip pain, 03/16-03/21 -03/26 XR noted osteoarthritis, no acute fracture. Lidocaine patch added, scheduled tylenol and flexeril. PT/OT, WBAT. PO vitamin A added for recent steroid use. 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 Pain well controlled. Current regimen: flexeril 10 mg TID scheduled, Oxycodone 5 mg Q6 hr PRN and tramadol 50 mg Q 6 hr PRN. RESOLVED Fistula 03/24/2022 10/26/2023 Overview (04/14/2022): Added automatically from request for surgery [id number] Fever in other diseases 01/24/202210/08 Bacteremia 07/26/2021 10/26/2023 Assessment & Plan (03/29/2022 6:01 PM CHAIN SAW DRIVER): 56 y.o. 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 Found to have polymicrobial bacteremia with Enterobacter and E faecalis. 03/23: -BCX: E aerogenes, E faecium 03/24: -BCX: E aerogenes, E faecium 03/25: -BCX: NGTD -CVC removed 03/26: -CT A/P: large ventral hernia and ECF; b/l nodular pulmonary opacities rec f/u in 3 months; mild thickening of R urinary bladder wall similar to prior 03/29: -new CVC -TTE pending No acute findings on exam. R hip benign no signs of infection. R hip pain is stable and not worsening. Recommendations: - Continue linezolid and ertapenem for E faecium and Enterobacter BSI. Additional salvador are being ran to ensure salvador to ertapenem, will be available in the next couple of days. - Will follow for TTE result. - Check CBC with diff, CMP weekly while on IV antibiotics - ID will continue to follow. As long as TTE is negative and isolate is salvador to ertapenem, plan will be ertapenem and linezolid for 10d from 03/25-04/04. Assessment & Plan (08/04/2021 12:58 PM CDT): started on Linezolid in ED, removed line 07/26 daily blood cultures, changed antibiotics to Vanc/ Cefe 07/27 Cultures resulted: Klebsiella Pneumoniae, Klebsiella Oxytoca, E Faecalis, consulted ID 07/28 Zosyn with no changes to cultures today. ID following and changed antibiotic to Imipenem 500 mg IV Q 8hr for 2 weeks. Hard stop 08/09/202107/29 ID final recommendations: Imipenem 500 mg IV Q 8 hr for 2 weeks. Hard stop date 08/13/2021. Weekly CBC and CMP, No ID follow up. -IR consulted for Law catheter for home IV antibiotics and TPN. 07/30 IR Law placement cancelled due to blood cultures + from 07/28. Will re-consult for Law when blood cx negative for 48 hours. Official start date for 2 weeks antibx is 07/30-08/13. 07/31 No further + cultures. Will reassess in the AM and if no cultures after 07/28 are positive will consider placing Law catheter. Remains on IV Imipenem for bacteremia. 08/01 monitoring cultures from 07/29; plan for Law placement Wednesday 08/02 blood cultures remain NGTD, plan for Law placement tomorrow morning 08/03 All blood cultures since 07/28 no growth. IR consulted and Law catheter placed. ID Recommendations: Medication Recommendations: Drug(s): imipenem 500 mg IV q8h x 14 days (given current CrCl 64) Firm Stop (Yes/No): yes, firm stop Anticipated Stop Date: 08/12/2021 Labs/Frequency to be Monitored: CBC once a week and CMP once a week Imaging Required Before Follow Up: none No ID follow up needed. UA- Negative 07/28 LED- negative CX: BCX: 07/25 Blood cx: Klebsiella pneumoniae, Klebsiella oxytoca, E faecalis 07/27 NG final 07/28 Enterococcus faecalis x1 bottle 07/30 NG final 07/31 NG final 08/01 NGTD 08/02 NGTD ABX Linezolid 07/25-07/26 Vanc 07/26-off Cefepime 07/26-off Zosyn 07/26-07/28 Imipenem 07/28-08/12/2021 (official start date for 2 weeks 07/30) Sepsis 07/25/2021 10/26/2023 Assessment & Plan (08/04/2021 12:57 PM CDT): SEE BACTEREMIA Fever 04/24/2021 10/26/2023 Fever and chills 04/24/2021 10/26/2023 Acquired absence of other sp ecified parts of digestive tract 02/13/2021 10/26/2023 Difficulty in walking, not e lsewhere classified 02/13/2021 10/26/2023 Muscle weakness (generalized) 02/13/2021 10/26/2023 Unspecified osteoarthritis, unspecified site 10/26/2023 Sepsis without acute organ dysfunction 01/29/2021 01/31/2021 Assessment & Plan (01/30/2021 6:06 PM CHAIN SAW DRIVER): Presumed sepsis. Presented with fevers and tachycardia. See infectious workup elsewhere. Resolved. Pre-op evaluation 11/04/2020 10/26/2023 Assessment & Plan (04/12/2022 7:40 AM CHAIN SAW DRIVER): Fistula Pre-Op Planning (last updated 04/12/22) Primary Care Provider: Marly Crespo MD [place] [employer]: [facility] Care Colonoscopy: Jess Martines 12/23/17: The perianal and digital rectal examinations were normal. A patchy area of granular mucosa was found in the rectum. Biopsies were taken with a cold forceps for histology. The colon (entire examined portion) appeared normal. Prior abdominal surgeries: -1998 gallbladder; unknown location -2002 OSH [facility] in [place]: colon resection for diverticulitis (need record?) -2017 (Conrad) Ex lap, VHR, left colectomy, end colostomy -02/2018 (Martines) Colostomy takedown mesh excision, VHR, abd wall reconstruction with biologic mesh -05/2018 (Martines) wound exploration with removal of stitch abscess -08/2018 (Martines) wound exploration subq abscess drainage -08/2020 (OS) ex lap NOEL, incarcerated incisional hernia x8, repair of enterotomy, abthera, right chest tube 09/08/2020: (Jose) exlap, SBR (15cm), in discontinuity, abthera 09/10/20: (James) re-lap, SB anastomosis, abdominal closure with vicryl mesh 09/26/20: trach downsized to 6 prox XLT 10/15/20 (Jsoe): STSG to abdomen 10/17/20 trach removed bedside 07/26/21 Law removed for bacteremia: Klebsiella pneumoniae, Klebsiella Oxytoca, E faecalis. 08/03/21 Law placed 01/29/22 Hickmann placed 03/24/21 Hickmann removed in ED Prior Pathology: 08/17/17: Abdominal mesh and adherent soft tissue, gross and microscopic examination - Mesh identified (gross examination) - Congested fibroadipose tissue with areas of fat necrosis Colon, left, segmental resection - Diverticulitis with abscess and granulation tissue, corresponding to the area of stricture - No malignancy, including four sampled regional lymph nodes (0/4) - Resection margins viable 12/23/17: A. Rectum, biopsy - Rectal mucosa with focal activity - No histologic changes of chronic inflammation, and no parasites, granuloma, or viral inclusions - No dysplasia or malignancy 02/13/18: A. Large intestine, colostomy - Segment of large intestine and skin with reactive epithelial changes consistent with ostomy 09/08/20: Small intestine, resection - Segment of small intestine with chronic serositis and subserosal edema and focal hemorrhage - Bowel mucosa with mild ischemic changes and diffuse acute enteritis - No evidence of necrosis or perforation - Surgical resection margins with acute enteritis, but otherwise appear viable 09/10/20: Soft tissue, ventral hernia, excision - Hernia sac with extensive fibrosis - Unable to obtain prior pathology from OSH surgeries Micronutrients (Date 08/04/21) Zinc-- 71 Vit D -- 30 Vit B12 -- 531 Iron panel -- 30/ TIBC 362 / Transferrin 8 Folate -- 531 Copper -- 148 Vit A -- 54.7 ---Replacement Orders: none Reordered 03/26/22 Zinc-- 70 Vit D -- 18 Ergocalciferol started 03/27 Vit B12 -- 689 Iron panel -- 16/ TIBC 246 / Transferrin Iron Sucrose 03/27 Folate --16.6 Copper -- 191 Vit A -- 31.1 ---Replacement Orders: Iron sucrose, ergocalciferol 03/27 Prealbumin/Albumin: 08/04/21 Prealbumin 22 Albumin 3.0 01/28/22 Albumin 2.6 Prealbumin 10 03/24/22 Albumin 3.3 03/25 Albumin 3.3 Prealbumin 14 03/29 Albumin 3.2 Prealbumin 19 04/05 albumin 3.8 Prealbumin 35.0 04/11 albumin 3.8 Prealbumin 24 Height 182.9 cm / Weight 90.7kg (as of 03/24/22) BMI 27.12 Recent Culture Data: 07/25/21 BCx Klebsiella pneumoniae, E faecalis, K oxytoca 07/28/21 BCx E faecalis ---DC on imipenem x 2 weeks 01/24/22 BCx Klebsiella oxytoca 01/25/22 BCx Enterococcus faecalis ---DC on IV vancomycin/ceftriaxone until 02/09/22 (2w course) Cultures this admission 03/23 UCx Enterobacter aerogenes 03/23 BCx Enterobacter aerogenes x2, Enterococcus faecium x2 (VRE) 03/24 BCx Enterobacter aerogenes, Enterococcus faecium, 03/25 BCx NG final 03/25 Fungal BCx NFGTD 03/26 BCx NG final 03/27 BCx NG final ---Finished IV antibiotic course, IV ertapenem/linezolid 03/24-04/03/22 3/ BCx NGTD 04/10 UA negative; no reflex to cx Steroids/immunosuppression: medrol dose hanna ordered per PCP for hip pain s/p fall at home; 03/16-03/21/22 Most recent line placement: 01/29/22 Hickmann placed; 03/24/21 Hickmann removed in ED. IR CVC placed 03/29 Current Diet: 2 ensures supplements/ day, TPN off (03/24-03/28), line holiday; TPN restarting 03/29 PM Current Anti-motility Regime: Gattex (held), loperamide (4mg QID), lomotil (2 tab, QID) OR plan and surgeon: scheduled for Tuesday04/13/22 ---Combo case with Dr. Granados and Dr. Roe for ECF takedown, abdominal wall reconstruction/flap coverage ---Bhupinder consent uploaded in media; Darwin consent needs to be done prior ---Anesthesia to be consulted prior to epidural placement ---CPAP evaluation done 03/22; noted difficult intubation ---NO need for pre-op stents per urology ---Will need pre-op antibiotics (flagyl and rifaximin) and pre-op baths, fleet enema GA x1, VTE ppx held per PRS request Last Imaging: - ECHO 02/03/21: Normal LV and RV size and systolic function. No gross valvular vegetations seen. No significant valvular abnormalities noted. Normal Inferior vena cava. Normal aorta. EF=52-72% -Echo 03/29/22: LV size is normal. LVEF 71%. Normal RV function. No significant valve disease. Unable to estimate PASP due to lack of adequate TR jet. Normal RA pressure. -EKG 01/29/21: Sinus tach, L axis deviation, inferior infarct, age indeterminate. QTc 412 -No PFTs -Upper and lower extremity dopplers: 03/26/22-- negative -Last CT AP 03/26/22: 1. Again seen is a large ventral abdominal wall hernia containing nondilated loops of small bowel and colon. There is an ostomy in the right lower quadrant. To the right of the ostomy, there is a loop of small bowel which appears to communicate with the skin, suggestive of an enterocutaneous fistula. 2. There are partially imaged bilateral nodular pulmonary opacities which are new from prior measuring up to 1.6 cm in the left lower lobe. These are fairly infectious or inflammatory in etiology. Recommend attention on follow-up CT in 3 months to document resolution. 3. Similar appearance of small right greater than left bilateral pleural effusions with right-sided pleural thickening. 4. Mild thickening of the right urinary bladder wall, similar to prior. Recommend further evaluation with cystoscopy and urine cytology. -10/01/21 GIGU Radiology: Appropriate opacification of multiple loops of nondistended large bowel and ileum within known large ventral hernia in patient's right hemiabdomen. Assessment & Plan (08/04/2021 12:58 PM CDT): Fistula Pre-Op Planning (last updated 08/04/2021) Primary Care Provider: Marly Crespo MD [employer]: [facility] Dispo: Home Colonoscopy: Epic Dr. Martines 12/23/17 Prior abdominal surgeries: -1998 gallbladder unknown location -2002 OSH [facility] in [place]: colon resection for diverticulitis (need record?) -2017 (Conrad) Ex lap, VHR, left colectomy, end colostomy -02/2018 (Conrad) Colostomy takedown mesh excision, VHR, abd wall reconstruction with biologic mesh -05/2018 (Martines) wound exploration with removal of stitch abscess -08/2018 (Martines) wound exploration subq abscess drainage -08/2020 (OSH) ex lap NOEL, incarcerated incisional hernia x8, repair of enterotomy, abthera, right chest tube -09/08: (Jose) exlap, SBR (15cm), in discontinuity -09/10: (James) SB anastomosis, vicryl mesh 07/26 Law removed for bacteremia: Klebsiella pneumoniae, Klebsiella Oxytoca, E faecalis. 08/03 Law placed ---OSH OR 08/2020 in Secondary records on 09/07/2020 Prior pathology: - [facility] pathology: 08/17/17, 12/23/17, 02/13/18, 09/08/20, 09/10/20 - eval if path needed for 2002 surgery, unable to obtain 1998 Micronutrients (Date 10/08/20): Zinc: 1.25 Vit D 25 hydroxyl: 14 Vit B12: 793 Folate: 10.7 Iron profile: Iron 59, TIBC 297, Transferrin saturation 20 Copper: 1.63 Vit A: 113 ---Replacement Orders: none 08/04 Micronutrients sent, pending at discharge Prealbumin/Albumin: weekly orders 11/05 Prealbumin 19, albumin 2.7 11/12 Prealbumin 19, Albumin 2.8 11/19 Prealbumin 20, Albumin 3.0 11/26 prealbumin 25, Albumin 3.1 07/26 prealbumin 12 Albumin 3.0 08/04 Prealbumin 22 Albumin 3.0 Height 180.3cm Weight 101.7 kg (11/06) BMI 31.27 Recent Culture Data: -10/02/20 blood cultures no growth -11/18 Blood cultures no growth 07/25 Blood cx: Klebsiella pneumoniae, Klebsiella oxytoca, E faecalis 07/27 NG final 07/28 Enterococcus faecalis x1 bottle 07/30 NG final 07/31 NG final 08/01 NGTD 08/02 NGTD Steroids/immunosuppression:-none Recorded Wt: 98.6 kg updated on 10/13/20, 08/03/2021 Wt. 85.6 KG BMI 25.6 Body mass index is 25.61 kg/m . Most recent line placement: Hickmann 08/03/2021 OR plan and surgeon: Likely Dr. Granados; surgical plans joint case with Dr. Roe for Flap. Date TBD. Will follow up with Darwin in clinic for pre-op evaluation 09/09/2021 Last ECHO, PFTs if indicated, EKG: - ECHO 09/08/20 ([facility]): LV size is normal. LVEF 75%. RV size and function are normal. No significant valve disease. Unable to estimate PASP due to lack of adequate TR jet. IVC is not well visualized. - EKG in [facility] 10/26/20, EKG in [facility] 11/27. - Water soluble enema 12/22/20 No leak rectal stump Assessment & Plan (12/02/2020 2:18 PM CDT): Fistula Pre-Op Planning (last updated 11/21) Primary Care Provider: Marly Crespo MD [employer]: N/A at this time Dispo: [facility] Colonoscopy: Jess Martines 12/23/17 Prior abdominal surgeries: -1998 gallbladder unknown location -2002 OSH [facility] in [place]: colon resection for diverticulitis (need record?) -2017 (Martines) Ex lap, VHR, left colectomy, end colostomy -02/2018 (Martines) Colostomy takedown mesh excision, VHR, abd wall reconstruction with biologic mesh -05/2018 (Martines) wound exploration with removal of stitch abscess -08/2018 (Martines) wound exploration subq abscess drainage -08/2020 ([facility]H) ex lap NOEL, incarcerated incisional hernia x8, repair of enterotomy, abthera, right chest tube -09/08: (Jose) exlap, SBR (15cm), in discontinuity -09/10: (James) SB anastomosis, vicryl mesh ---OSH OR 08/2020 in Secondary records on 09/07/2020 Prior pathology: - [facility] pathology: 08/17/17, 12/23/17, 02/13/18, 09/08/20, 09/10/20 - eval if path needed for 2002 surgery, unable to obtain 1998 Micronutrients (Date 10/08/20): Zinc: 1.25 Vit D 25 hydroxyl: 14 Vit B12: 793 Folate: 10.7 Iron profile: Iron 59, TIBC 297, Transferrin saturation 20 Copper: 1.63 Vit A: 113 ---Replacement Orders: none Prealbumin/Albumin: weekly orders 11/05 Prealbumin 19, albumin 2.7 11/12 Prealbumin 19, Albumin 2.8 11/19 Prealbumin 20, Albumin 3.0 11/26 prealbumin 25, Albumin 3.1 Height 180.3cm Weight 101.7 kg (11/06) BMI 31.27 Recent Culture Data: -10/02/20 blood cultures no growth -11/18 Blood cultures no growth Steroids/immunosuppression: -none Recorded Wt: 98.6 kg updated on 10/13/20 Body mass index is 30.32 kg/m . Most recent line placement: Hickmann 10/09/20 OR plan and surgeon: Likely Dr. Granados; surgical plans pending Last ECHO, PFTs if indicated, EKG: - ECHO 09/08/20 ([facility]): LV size is normal. LVEF 75%. RV size and function are normal. No significant valve disease. Unable to estimate PASP due to lack of adequate TR jet. IVC is not well visualized. - EKG in [facility] 10/26/20, EKG in [facility] 11/27. - Water soluble enema 12/22/20 No leak rectal stump Hyponatremia 11/02/2020 11/06/2020 Assessment & Plan (11/06/2020 10:01 AM CDT): 11/02: Remains hyponatremic to Na 132. On 1L fluid restriction. Adjust via TPN. 11/03: Na 133 11/04: Na/chloride adjusted in TPN per locomotive engineer diesel 131 11/05: Na up to 132, CTM 11/06 Na normalized; 138 Chest pain 10/26/2020 11/01/2020 Assessment & Plan (10/27/2020 10:04 AM CDT): -10/26: overnight and this AM patient complaining of chest and epigastric pain. +/- positional. He thinks it is heartburn. Increased PPI to BID. EKG done; unchanged from 10/09; no ST elevation. Troponin ordered with AM labs. Patient sitting upright in bed. Advised patient to limit hard candy if it was irritating gastric mucosa. VSS, CTM. ---Trop WNL. Gave trial dose flexril 5mg for pain. 10/27: Continues having intermittent chest and epigastric pain, attributing it to heartburn. PPI frequency increased to BID yesterday. Impacted cerumen of left ear 10/24/2020 04/22/2022 Assessment & Plan (10/24/2020 12:47 PM CDT): - 10/24 complaints of left ear [place], frequently cleans ears with Qtips, no pain or tenderness to palpation - Left ear with impacted cerumen to side wall - Debrox to left ear Malnutrition 10/20/2020 10/26/2023 Assessment & Plan (05/10/2022 11:53 AM CDT): Home diet: 2 Ensures/day + full cycled Q12H TPN 01/28/22 Albumin 2.6 Prealbumin 10 (last admission) 03/24/22 Albumin 3.3 03/24/21 Hickmann removed in ED; line holiday, stop TPN Repeat micronutrient labs to be ordered, weekly nutrition labs to be ordered 03/25 Albumin 3.3 Prealbumin 14 03/26 Continue with TPN line holiday; OK to continue Ensures BID; recommending Ensure Surgery if available, if not Ensure Max protein, OK for gum/hard candy, NO other liquids, NO solid food. ---Trig normal, LFTs normal 03/29 TPN to restart tonight, repeat nutrition labs tonight; to be done weekly on Mondays Albumin 3.2 Prealbumin 19 04/02: TPN + Ensures. No candy/gum. 04/04 Continue with TPN and ensures; 0.5:1 LR bolus replacement orders in to be done Q-shift 04/05 albumin Prealbumin 35.0. Continuing TPN plus 2 ensure surgeries per day. 04/10 Ensures stopped with high ECF output; TPN to continue 04/11 NGT placed at bedside for gastric distention on CT A/P 04/11 albumin 3.8 Prealbumin 24 04/23: On TF at 30ml/hr at goal. NPO. TPN. 04/25: Slowly increase tube feeds from 30ml/hr to goal of 75ml/hr and continue TPN. If experience diarrhea, decrease tube feeds. 04/26 Titrating TF to goal, tolerating well, endorses flatus, last BM 04/24. Consult SUPERVISOR AIR CONDITIONING INSTALLER for swallow eval with improved mentation 04/27 TF at goal with full TPN, BMx1 overnight and well formed. Seen by SUPERVISOR AIR CONDITIONING INSTALLER today and rec mechanical soft diet, thin liquids. Decrease TPN to 70%, continue TF at goal, start diet with calorie counts. Taper TPN and TF pending PO intake 04/28 Mechanical soft diet started yesterday with lunch. He reports eating about 60-70 % of his meals. Continuing tube feeding at goal until able to tolerate at least 2 days of 100% of trays. TPN tapered to about 40% and planning to discontinue tomorrow. Calorie counts pending 04/29 Albumin 3.1 and Prealbumin 27. Speech therapy cleared him for regular diet. 05/01 continues to eat regular diet with tube feeds ate 2,249 evelin. Over 24hr; including ensure shake x2 05/02 ate over 2000 calorie again, continues to drink ensure shakes, tube feeds stopped last night, NG tube removed 05/03 Tolerating regular diet off all supplements. RD to discuss healthy eating habits with patient for discharge planning 05/04 Continuing to tolerate PO diet + supplements 05/07-05/10 Eating well and taking supplements with each meal. Calorie counts no longer needed. Micronutrients (Date 08/04/21): Zinc-- 71 Vit D -- 30 Vit B12 -- 531 Iron panel -- 30/ TIBC 362 / Transferrin 8 Folate -- 531 Copper -- 148 Vit A -- 54.7 Reordered 03/26/22 Zinc-- 70 Vit D -- 18 Ergocalciferol started 03/27 Vit B12 -- 689 Iron panel -- 16/ TIBC 246 / Transferrin Iron Sucrose 03/27 Folate --16.6 Copper -- 191 Vit A -- 31.1 ---Replacement Orders: Iron sucrose, ergocalciferol 03/27 Nutrient labs: 01/28/22 Albumin 2.6 Prealbumin 10 03/25 Albumin 3.3 Prealbumin 14 03/29 Albumin 3.2 Prealbumin 19 04/05 albumin 3.8 Prealbumin 35.0 3 albumin 3.8 Prealbumin 24 04/21 albumin 2.7, prealbumin 17 04/29 albumin 3.1 Prealbumin 27 Assessment & Plan (08/04/2021 12:55 PM CDT): TPN dependent, Po regimen below 07/26 Albumin 2 prealbumin 12 08/04 Albumin 3.0 Prealbumin 22 PO regimen 2 ensure shakes and 1 Gatorade daily. Assessment & Plan (12/02/2020 2:19 PM CDT): 09/13 TPN started, continue daily - access: R subclavian law placed 10/09 - will re-evaluate for po intake when ecf output <500cc/d for several days, continue octreotide/lamotil/loperamide 10/14 prealbumin 36, albumin 3.8 10/20 LFTs & triglycerides -- alk phos 453 from 110, Tbili 0.5 from 3.1, trigs 244 from 264 10/23 Prealbumin 26, albumin 3.1 10/23 LFTs continue to be elevated with ALP up to 566 from 453, continue to monitor->discussed with Market Sales Manager and will cycle TPN, lipids on hold till next week, will reassess trend on Tuesday if SMOF needed 10/27 Continue TPN, f/u on LFTs and trigylcerides 10/30 Albumin 3.2, Prealbumin 22, Triglycerides 208, Alk Phos 562, continue to monitor 11/01 Albumin 3.2, Triglycerides 260, Alk Phos 448 11/05: Triglycerides 215, Alk Phos 400, Prealbumin 19, albumin 2.7. Half TPN while on ileostomy diet. 11/09 Stopping re-feeds and diet due to high output > 1500 ml and leakage of fistula content. NPO except ice chips, 1 cup per shift. Full TPN. 11/12 Prealbumin 19, Albumin 2.8 11/19 Prealbumin 20, Albumin 3.0; Alk Phos (416) and trigs (211) down-trending 11/24 continue TPN and monitoring fistula output 11/26 prealbumin 25, Albumin 3.1 Nutrition labs due this week. Weekly nutrition labs; Q3d triglycerides and LFTs Abdominal wound dehiscence 10/15/2020 0 10/26/2023 Assessment & Plan (12/02/2020 2:21 PM CDT): STSG graft and abdominal wound vac placement 10/15 WV changed 10/19 (adaptic and black sponge to graft site), plan to remove 10/23 and will reapply vac if new skin not stable enough for ostomy bag adherence - L thigh donor WV removed 10/20, healing well WV changes: 10/19, 10/22, 10/24 10/27: planned for a prophylactic wound vac change 10/28: Wound vac looks good, no leakage currently 10/30 wound Vac change today 10/31 wound vac looks good, no leakage currently 11/02 wound vac changed 11/05 wound vac changed; person catheter to distal limb inserted for re-feeds 11/07 bloody drainage noted in wound VAC drainage; vac changed 11/09 minimal output from WV, most drainage from isolated fistula; changed 11/11 wound vac changed 11/13 attempted to isolated fistula with only ostomy pouch, but leaked, replaced wound Vac and fistula isolator 11/15 Planning wound VAC change with isolation of fistula output with ostomy pouch. 11/16 wound VAC and ostomy pouch isolating the fistula replaced yesterday and has good seal today. 11/19 vac changed 11/21 vac changed; bacitracin placed on skin; adaptic put over right inferior portion of the wound 11/26 Skin surrounding fistula site pink/clean. Bacitracin ointment applied and Black VAC foam applied. Ostomy bag over isolated fistula site. 11/28 Skin surrounding fistula with bleeding that required silver nitrate and biostep in one area at the base of the wound. Adaptic applied to all open areas/black foam and WV, fistula isolated with ostomy bag. 11/29 Wound vac changed. Turned off. 11/30 Vac held suction overnight with no leakage. 12/02 WV changed, isolating fistula output with ostomy bag. 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 Assessment & Plan (04/26/2022 1:13 PM CDT): Extensive abdominal surgical history as below Originally scheduled for ECF takedown 12/2021, canceled 03/11 to retinal detachment; patient treated by [facility] 2017 ([facility]) Ex lap, VHR, left colectomy, end colostomy OR 02/2018 ([facility]) Colostomy takedown mesh excision, VHR, abd wall reconstruction with biologic mesh OR 05/2018 (Martines) wound exploration with removal of stitch abscess OR 08/2018 (Martines) wound exploration subq abscess drainage OR 08/2020 ([facility]) ex lap NOEL, incarcerated incisional hernia x8, repair of enterotomy, abthera, right chest tube OR 09/08/2020: (Jose) exlap, SBR (15cm), in discontinuity, abthera OR 09/10/20: (James) SB anastomosis, vicryl mesh 09/25/20: vicryl mesh with c/f enteric fistula 09/26/20: trach downsized to 6 prox XLT 10/09/20 Law catheter placed (Quad lumen removed) OR 10/15/20 (Jose) Abdominal wall STSG 03/25 Admitted to the floor from ED for bacteremia; currently with wound pmp certified project manager in place over ECF. WORN consult for wound software sales manager and care. Sherine wound skin clean and healing; STSG from 2020 well healed. 03/26 CT Abdomen/pelvis ordered for today with IV contrast. Fistula pouched, extra supply in room; approx 625ml/24h. Holding Gattex, continue max dose loperamide. Continue to hold TPN, OK for Ensure BID (Surgery vs Max protein). PRS consulted today for Dr. Roe pre-op evaluation. --No new intra-abdominal findings on CT AP --Upper and lower extremity dopplers NEGATIVE for acute thrombus 03/29 Surgery rescheduled for 04/13; patient to remain in house until that time. IR placed line today, TPN to restart tonight; cont to hold Gattex, continue loperamide. ECF output 1000ml/24h 03/30 ECF output 375ml/24h, TPN started overnight 04/02 ECF OP 500ml/24h. On TPN plus 2 Ensures. No candy or gum. 04/03 ECF 930ml/24h, continue TPN and ensures 04/04 ECF 980ml/24h, adding lomotil; 1L LR bolus to be given after TPN finishes today. 04/05 ECF 1050ml/24h, maxed out lomotil. 0.5:1ml replacement ordered placed, to be done Q12H (once per shift) 04/06 ECF 700ml/24 hr Continues on lomotil and fluid replacement 1/2:1ml every 12 hours 04/07 ECF 300 ml liquid stool. Continuing lomotil and loperamide along with fluid replacements of 1/2: 1 LR every 12 hours. 04/08 ECF 900ml liquid stool. Fluid replacements of 1/2:1 LR every 12 hours. On lomotil and loperamide. 04/09 ECF 1400ml/24h output; continue TPN, fluid replacement and anti-motility regime 04/10 ECF output 2050ml/24h; confirmed with nursing. Afebrile, WBC stable; plan for BCx, UCx, CXR today for possible infectious workup 04/11 CXR normal and unchaged from prior. UA negative, no reflex to culture. BCx pending. Patient reported new abdominal pain radiating to back and nausea, no vomiting. EKG ordered. KUB ordered; discussed with ED radiology; large lucency on KUB either gastric bubble or loop of colon within hernia. Amylase/lipase added on to PM labs. CT abdomen/pelvis ordered for today per Dr Granados. ---Amylase/Lipase normal. CT A/P done, noting gastric distension; NGT ordered to be placed. 04/12 After multiple attempts, NGT placed successfully, 250ml output overnight. ECF 1150ml/24h. Plan for pre-op for surgery tomorrow. --- Evaluation by CPAP: no specific day of surgery labs recommended; noted to be difficult intubation 04/13 AFVSS, OR today, NGT output 650cc/overnight, ECF 825cc/24h, pre-op Bcx NGTD and UA negative 04/12 Pre-op Prep -Fleet enema GA x1 -PO antibiotic prep; flagyl and rifaximin x3 (1300, 1400, 2200) -CHG wipe bathes x2 -VTE ppx held per PRS request -Strict NPO, TPN to continue -Regional anesthesia team called; on schedule for pre-op epidural placement OR 04/13 (Darwin): Ex Lap, incisional hernia repair, ECF takedown, strattice underlay mesh; erta (x5 days) OR 04/13 (Roe-PRS): Right thigh vastus lateralis and anterolateral thigh flap and partial tensor fascia qasim musculocutaneous flap, right thigh donor site wound vac placement, incisional wound vac to abdomen, JPx2 subcutaneous abdomen and JPx2 subcutaneous thigh OR 04/16 (Roe-PRS): Left thigh split thickness skin graft donor site, Right thigh skin grafting, 25x10 cm, or 250 cm2, with placement of VAC to the right and left thighs, replacement abdominal incisional VAC SEE S/P Flap Graft for continued management Cultures 03/23 UCx Enterobacter aerogenes 03/23 BCx Enterobacter aerogenes x2, Enterococcus faecium x2 (VRE) 03/24 BCx Enterobacter aerogenes, Enterococcus faecium, 03/25, 03/26, 03/27 BCx NG final 03/25 Fungal BCx NFGTD 04/10 BCx NGTD Antibiotics Cefepime (03/24-03/25) Micafungin (03/25 - 03/26) Ertapenem (03/25 -04/03) Linezolid (03/24 - 04/03) Assessment & Plan (08/04/2021 12:54 PM CDT): pouched 500 mL output daily -plan take down once smoking cessation achieved and f/u Ilahi 07/28 ECF 0 output. Creatinine increased 1.38 from 1.0, 1L NS bolus given. Increasing IVF to 100 ml/hr while TPN off. 07/30 ECF with 1050 ml stool output. TPN on hold until cleared from ID for replacement of Law catheter. 07/31 ECF with 900 ml output. Ostomy appliance holding strong. TPN remains on hold related to bacteremia. 08/01 ECF output 650ml, continue holding TPN 08/02 ECF output up 1.4L; TPN on hold, IVF LR at 100ml/hr; added imodium BID for antimotility 08/03 ECF with 1050 ml output. Loperamide increased to QID to decrease fistula output to avoid dehydration. 08/04 ECF with 1550 overnight. Loperamide increased to maximum dosing of 4 mg QID. Discharging on TPN 2500 ml fluid maximum along with 1L NS boluses if ECF output > 1000 ml for 2 days in a row. Labs per previous schedule with [facility] infusion. He will remain on loperamide 4 mg QID and Lomotil 2 tablets QID He will follow up with Dr. Granados for fistula takedown planning. Dr. Roe saw him while in patient and will do a joint case with Darwin. -I will be available to help with flap if needed--LEFT ALT/VL myocutaneous flap, RIGHT abdominal advancement (of lateral redundant skin from weight loss); possible VAC. Surgery with Dr Granados. Patient knows he needs to STOP TOB. -I will need 2 hours at beginning (to help plan incisions) and then 4-6 hours at end. All day case with Dr. Granados. 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 - Cont TPN - Ensure (BID); Limit PO intake to: 2 popsicles and 3 cups of ice per day. 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 - TPN - Ensure (BID); Limit PO intake to: 2 popsicles and 3 cups of ice per day. - Ostomy bag over EC Fistula. Daily and PRN care. 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 - TPN - Ensure (BID); Limit PO intake to: 2 popsicles and 3 cups of ice per day. - Ostomy bag over EC Fistula. Daily and PRN care. 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 - Continue wound care of EC fistula - TPN - Ensure (BID); Limit PO intake to: 2 popsicles and 3 cups of ice per day. 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 - Continue wound care of EC fistula - TPN and - Ensure (BID); Limit PO intake to: 2 popsicles and 3 cups of ice per day. 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 - Continue wound care of EC fistula - Limit PO intake to: 2 popsicles and 3 cups of ice per day. 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 - Continue wound care of EC fistula - Limit PO intake to: 2 popsicles and 3 cups of ice per day. 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 - Continue wound care of EC fistula - Limit PO intake to: 2 popsicles and 3 cups of ice per day. 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 - Continue wound care of EC fistula - Limit PO intake to: 2 popsicles and 3 cups of ice per day. Add Jerry x2 as TPN on hold (was the plan pr Dr. 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 - Continue wound care of EC fistula - Limit PO intake to: 2 popsicles and 3 cups of ice per day. Add Jerry x2 as TPN on hold (was the plan pr Dr. 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 - Continue wound care of EC fistula - Limit PO intake to: 2 popsicles and 3 cups of ice per day. Add Jerry x2 as TPN on hold (was the plan pr Dr. Patel last clinic note) - Monitor EC fistula output, ensure < 500 cc/day, otherwise cut down on oral intake - Consider ACCS consult tomorrow, family requesting Assessment & Plan (12/02/2020 2:20 PM CDT): - continue wound management for accurate output monitoring - continue octreotide 10/01: EC fistula output lateral around 400 cc daily, CTM and continue octreotide. - plan to apply WV to abdominal wound w/ fistula isolator today. Adaptic to base and black foam to rest of wound bed 10/02: WV intact, plan MWF changes. Draining succus in isolator pouch as well as in WV cannister. 10/03 EC fistula with 650 ml output between WV and bag over isolator. Fistula output is liquid green/bilious. 10/04 ECF 505 ml output. Wound VAC to abdominal wound and over fistula holding suction. Continuing TPN/NPO 10/05 ECF 750 ml output. WV to abdomen with ostomy bag over fistula site, holding suction. TPN/NPO 10/06 CT abdomen/pelvis: Interval increase in organization and rim enhancement of a right perihepatic fluid collection. Interval increase in size of a right pleural effusion with decrease in size of a left pleural effusion. Postsurgical changes of exploratory laparotomy for management of incarcerated ventral hernias with a surgical drain in place in the left lower quadrant but no other organized or drainable fluid collections within the abdomen or pelvis. -nothing to do at this time. No antibiotics, Collection looks like a subcapsular hematoma, if signs or symptoms of infection in the future we will readdress. -Wound VAC changed today. ECF with 575 ml output. GAEL drain pulled back about 5cm from original placement but holding suction, no output. 10/07 EC fistula output 400 mL 10/08 EC fistula output 500 cc; will change wound vac today 10/09 NPO/TPN. ECF with 550 ml output. Wound VAC over wound with ostomy bag isolator. GAEL drain to be removed today, only minimal yellow serous output. Planning wound VAC change tomorrow. DAVID consulted for TPN line. VIR feels Law catheter would be better to place. Planning Law today and will discontinue the quad lumen catheter. 10/10 EC fistula with 250 ml output, will change wound VAC with fistula isolator today. Continuing NPO/TPN. 10/14 noted fistula output 500 mL, plan OR tomorrow, will check Albumin and Prealbumin 10/15 ECF output uncharted -- ~200cc in bag and noted leakage from beneath WV 10/16: ECF output charted 75 cc during day 10/15 10/17 EC fistula 190 mL, added tincture of opium to decrease fistula output 10/18 drain output 850 mL overnight will continue to monitor output 10/19 continue to monitor fistula output 10/20 ECF 480cc/24h, not tolerating opium (nausea), continue lamotil, add loperamide; will discuss po intake when ecf <500cc/d for several days 10/21 ECF 1265cc/24h after refusing multiple doses of lamotil and loperamide, discussed importance with patient and nursing, limit ice chips, continue current medications as ordered and re-evaluate output when medication administration is reliable. Continue octreotide. 10/22 ECF 1400ml/24h; per MAR lamotil, liperamide, octreotide given; discussed with patient at length to limit PO intake; plan to take WV down tomrorow and re- assess ECF coverage 10/23 Called for WV leaking yesterday evening; changed the entire vac with the fistula isolator within the black foam yesterday evening. Adaptic under black foam. WV holding suction this AM. RN to change the donor site on thigh; bacitracin, allyven Ag, NELDA wrap to secure. ---OK to start Gattex; paperwork faxed 10/24: vac holding today with no leaks 10/26: ECF output increased to 1375ml/24h. Discussed with patient again the importance of staying NPO. Pt compliant with anti-motility agents per APR. Spaced out PRN morphine from Q4h to Q6h 10/27: Fistula output now at 650 from 1375, administer 0.5mL of LR for every 1mL of fistula output, continue current anti motility agents 10/28: Fistula output now at 450mL from 650mL, continue current anti motility agents, increase amount of ice chips consumed on a daily basis, dc'd LR replacement (only for fistula output>1L) 10/29: decreased WBC count, fistula output 625 ml, discuss phos/bicarb/ALP in TPN with locomotive engineer diesel 10/30 fistula output decreased to 225 mL, will discuss increasing PO intake 10/31 Fistula output is now at 500mL, wound vac intact, no leaks, WBC-9.7, planned for 1L fluid restriction 11/01 Fistula output increased to 1250. Dc octreotide. Increased imodium to 4 qid. 11/01: CT/AP w loop of likely proximal ileum favored to represent source of subcutaneous fistula, no new abdominal or pelvic collection 11/02: Start ileostomy diet. Continue TPN 11/03: start low dose scheduled morphine to assist in slowing of fistula output, output 1475 ml->continue TPN 11/04: increase lomotil to 10 ml QID, Gattex prior authorization received, bolus x 1 overnight, x 1 today for orthostatic hypotension, output unchanged at 1450 ml 11/05: wound vac to be changed today, prior authorization for Gattex denied->will re-attempt with additional information as requested, Na, trigs and ALP improving, patient net even today, fistula output 1.75L; succus re-feeds to distal fistula limb started (as below) - 20 Marshallese Person placed in distal limb with 3-4 ml of sterile saline, vac around, proximal limb to gravity drainage - Strain succus from fistula with strainer to remove particulate - Refeed strained succus through catheter placed in bowel via tube feeding pump at 10 ml/hr -11/06: Patient tolerated initiation of re-feeds; increased to 20ml/hr; continue ileostomy diet and TPN. DC fernandez morphine. 11/07: mild nausea, no emesis, advancing re-feeding to 30ml/hr. Continuing ileostomy diet and TPN 11/08 No complaints of nausea today. Tube in distal limb of fistula repositioned and re-feeds resumed. Continuing TPN and Ileostomy diet. Wound VAC to wound with EC fistula isolator, bag was leaking today and was changed. WV in place and intact. Gattex still under review. ORS discontinued today since ECF output 1375 ml. 11/09 ECF output > 1500 ml and leaking. Stopping re-feeds and NPO except 1 cup ice chips per 8hr. Increasing to full TPN. Planning WV change today. 11/10 ECF output 2L/24h. WV changed yesterday; holding suction and seal today without issue. 11/11 ECF output 1700ml/24h; plan to change vac today. Gattex approved by insurance; [facility] pharmacy to mail meds to [facility] office in [facility]. 11/12 ECF output down to 1045 ml, awaiting Gattex 11/13 ostomy output 1250 mL 11/14 inaccurate output due to leaking with isolating with only an ostomy pouch yesterday 11/15 ECF 1800 ml with liquid green drainage. 11/16 ECF 950 ml WV/pouch changed 11/15 and still holding today. Continuing with antidiarrheals. 11/17 change wound Vac today, ECF output ~1L 11/18 ECF 1650 ml from 1650 ml, changed 1 cup of ice every 6 hours to 1/2 cup of ice every 8 hours-> LR 500 ml bolus 11/19 ECF output 1950 ml-> one liter LR bolus, vac changed 11/20 ECF 1450ml/24h; awaiting Gattex medication delivery to ACCS office 11/21 ECF 1850ml/24h 11/22 ECF output around 1900ml/24h. Gattex started. Administered 500ml IVF bolus for tachycardia to which he responded. Continue to monitor for changes in his HR. 11/23 ECF output around 950ml/24h. Continue management as ordered. 11/24 ECF output 1375 mL, plan to change the wound Vac today 11/26 ECF 1150, W[place] changed today. 11/25 output increased to 1750 mL, strict NPO initiated 11/26 NPO/TPN with ice chips 1/2 cup every 8 hrs. ECF with 975 ml output. Emesis x1 yesterday after lomotil/loperamide given. Changed to pill form, given zofran prior to these medications and had no further issues with nausea. 11/28 Mild nausea, emesis intermittently with Gattex and pills. Zofran helps with nausea. Overall tolerating the medication. 11/29 no nausea or emesis overnight 11/30 No nausea/emesis overnight. 12/01 ECF 625 ml. NPO/TPN. Planning takedown September 2021. 12/02 ECF 625 ml, taking PO zofran intermittently for nausea around Gattex and anti-motility agents. Remains on TPN/NPO except 1/2 C ice chips and 1 popcicle every 8 hours. Wound VAC with fistula isolated to drain. WV changed 12/01. Anti-motility agents and Gattex to keep ECF output < 1000 ml. -Goal is get tissue to heal so he can place an ostomy bag over the fistula. 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 Started on Cefepime and Vancomycin (01/28). CT abdomen pelvis with contrast redemonstrated changes of prior hernia repair with large and small bowel anastomoses and double-barrel fistula with interval increase in ventral hernia size with multiple loops of nonobstructed bowel. There were no organized fluid collections noted. UA without pyuria or bacteriuria. Chest x-ray without any evidence of pneumonia. Blood cultures x2 (01/29) with MRSE. IR consulted, s/p removal of Rt tunneled line (01/29). Cefepime stopped (01/28-01/30). - Bcx 01/30 and 01/31, 02/01 and 02/03: Negative - 02/03 TTE: Normal LV and RV size and systolic function. No gross valvular vegetations. - 02/03 New tunneled catheter placed (for TPN and IV abx) - Continue Vancomycin (01/28/2021-02/12/2021 ). - No ID follow up needed Assessment & Plan (02/12/2021 1:00 PM CHAIN SAW DRIVER): Presented with high-grade fevers x1 day following use/flushing of his Rt tunneled line (for TPN). Started on Cefepime and Vancomycin (01/28). CT abdomen pelvis with contrast redemonstrated changes of prior hernia repair with large and small bowel anastomoses and double-barrel fistula with interval increase in ventral hernia size with multiple loops of nonobstructed bowel. There were no organized fluid collections noted. UA without pyuria or bacteriuria. Chest x-ray without any evidence of pneumonia. Blood cultures x2 (01/29) with MRSE. IR consulted, s/p removal of Rt tunneled line (01/29). Cefepime stopped (01/28-01/30). - Bcx 01/30 and 01/31, 02/01 and 02/03: Negative - 02/03 TTE: Normal LV and RV size and systolic function. No gross valvular vegetations. - 02/03 New tunneled catheter placed (for TPN and IV abx) - Continue Vancomycin (01/28/2021-02/12/2021 ). Last dose today - No ID follow up needed Assessment & Plan (02/11/2021 1:33 PM CHAIN SAW DRIVER): Presented with high-grade fevers x1 day following use/flushing of his Rt tunneled line (for TPN). Started on Cefepime and Vancomycin (01/28). CT abdomen pelvis with contrast redemonstrated changes of prior hernia repair with large and small bowel anastomoses and double-barrel fistula with interval increase in ventral hernia size with multiple loops of nonobstructed bowel. There were no organized fluid collections noted. UA without pyuria or bacteriuria. Chest x-ray without any evidence of pneumonia. Blood cultures x2 (01/29) with MRSE. IR consulted, s/p removal of Rt tunneled line (01/29). Cefepime stopped (01/28-01/30). - Bcx 01/30 and 01/31, 02/01 and 02/03: Negative - 02/03 TTE: Normal LV and RV size and systolic function. No gross valvular vegetations. - 02/03 New tunneled catheter placed (for TPN and IV abx) - Continue Vancomycin (01/28/2021-02/12/2021 ), Per Infectious Disease Team 3 - Vanc dose decreased to 1gm q12 due to trough 23. Repeat trough in AM Assessment & Plan (02/10/2021 2:47 PM CHAIN SAW DRIVER): Presented with high-grade fevers x1 day following use/flushing of his Rt tunneled line (for TPN). Started on Cefepime and Vancomycin (01/28). CT abdomen pelvis with contrast redemonstrated changes of prior hernia repair with large and small bowel anastomoses and double-barrel fistula with interval increase in ventral hernia size with multiple loops of nonobstructed bowel. There were no organized fluid collections noted. UA without pyuria or bacteriuria. Chest x-ray without any evidence of pneumonia. Blood cultures x2 (01/29) with MRSE. IR consulted, s/p removal of Rt tunneled line (01/29). Cefepime stopped (01/28-01/30). - Bcx 01/30 and 01/31, 02/01 and 02/03: Negative - 02/03 TTE: Normal LV and RV size and systolic function. No gross valvular vegetations. - 02/03 New tunneled catheter placed (for TPN and IV abx) - Continue Vancomycin (01/28/2021-02/12/2021 ), Per Infectious Disease Team 3 - Vanc dose decreased to 1gm q12 due to trough 23. Repeat trough in AM Assessment & Plan (02/09/2021 11:54 AM CHAIN SAW DRIVER): Presented with high-grade fevers x1 day following use/flushing of his Rt tunneled line (for TPN). Started on Cefepime and Vancomycin (01/28). CT abdomen pelvis with contrast redemonstrated changes of prior hernia repair with large and small bowel anastomoses and double-barrel fistula with interval increase in ventral hernia size with multiple loops of nonobstructed bowel. There were no organized fluid collections noted. UA without pyuria or bacteriuria. Chest x-ray without any evidence of pneumonia. Blood cultures x2 (01/29) with MRSE. IR consulted, s/p removal of Rt tunneled line (01/29). Cefepime stopped (01/28-01/30). - Bcx 01/30 and 01/31, 02/01 and 02/03: FINAL REPORT Negative - 02/03 TTE: Normal LV and RV size and systolic function. No gross valvular vegetations. - 02/03 New tunneled catheter placed (for TPN and IV abx) - Continue Vancomycin (01/28/2021-02/12/2021 ), Per Infectious Disease Team 3 Assessment & Plan (02/08/2021 2:48 PM CHAIN SAW DRIVER): Presented with high-grade fevers x1 day following use/flushing of his Rt tunneled line (for TPN). No other localizing symptoms. Started on Cefepime and Vancomycin (01/28). CT abdomen pelvis with contrast redemonstrated changes of prior hernia repair with large and small bowel anastomoses and double-barrel fistula with interval increase in ventral hernia size with multiple loops of nonobstructed bowel. There were no organized fluid collections noted. UA without pyuria or bacteriuria. Chest x-ray without any evidence of pneumonia. Blood cultures x2 (01/29) with MRSE. IR consulted, s/p removal of Rt tunneled line (01/29). Cefepime stopped (01/28- 01/30). - Bcx 01/30 and 01/31, 02/01 and 02/03: FINAL REPORT Negative - 02/03 TTE: Normal LV and RV size and systolic function. No gross valvular vegetations. - 02/03 New Tunneled Catheter placed (for TPN and IV abx) - Continue Vancomycin (01/28/2021-02/12/2021 ), Per Infectious Disease Team 3 Assessment & Plan (02/07/2021 11:03 AM CHAIN SAW DRIVER): Presented with high-grade fevers x1 day following use/flushing of his Rt tunneled line (for TPN). No other localizing symptoms. Started on Cefepime and Vancomycin (01/28). CT abdomen pelvis with contrast redemonstrated changes of prior hernia repair with large and small bowel anastomoses and double-barrel fistula with interval increase in ventral hernia size with multiple loops of nonobstructed bowel. There were no organized fluid collections noted. UA without pyuria or bacteriuria. Chest x-ray without any evidence of pneumonia. Blood cultures x2 (01/29) with MRSE. IR consulted, s/p removal of Rt tunneled line (01/29). Cefepime stopped (01/28- 01/30). - Bcx 01/30 and 01/31, 02/01 and 02/03: FINAL REPORT Negative - 02/03 TTE: Normal LV and RV size and systolic function. No gross valvular vegetations. - 02/03 New Tunneled Catheter placed (for TPN and IV abx) - Continue Vancomycin (01/28/2021-02/12/2021 ), Per Infectious Disease Team 3 Assessment & Plan (02/06/2021 2:29 PM CHAIN SAW DRIVER): Presented with high-grade fevers x1 day following use/flushing of his Rt tunneled line (for TPN). No other localizing symptoms. Started on Cefepime and Vancomycin (01/28). CT abdomen pelvis with contrast redemonstrated changes of prior hernia repair with large and small bowel anastomoses and double-barrel fistula with interval increase in ventral hernia size with multiple loops of nonobstructed bowel. There were no organized fluid collections noted. UA without pyuria or bacteriuria. Chest x-ray without any evidence of pneumonia. Blood cultures x2 (01/29) with MRSE. IR consulted, s/p removal of Rt tunneled line (01/29). Cefepime stopped (01/28- 01/30). - Bcx 01/30 and 01/31 Negative - Bcx 02/01 and 02/03 NGTD - Continue Vancomycin (01/28/2021-02/12/2021 ) - 02/03 TTE: Normal LV and RV size and systolic function. No gross valvular vegetations. - 02/03 New Tunneled Catheter placed (for TPN and IV abx) Assessment & Plan (02/05/2021 2:56 PM CHAIN SAW DRIVER): Presented with high-grade fevers x1 day following use/flushing of his Rt tunneled line (for TPN). No other localizing symptoms. Started on Cefepime and Vancomycin (01/28). CT abdomen pelvis with contrast redemonstrated changes of prior hernia repair with large and small bowel anastomoses and double-barrel fistula with interval increase in ventral hernia size with multiple loops of nonobstructed bowel. There were no organized fluid collections noted. UA without pyuria or bacteriuria. Chest x-ray without any evidence of pneumonia. Blood cultures x2 (01/29) with MRSE. IR consulted, s/p removal of Rt tunneled line (01/29). Cefepime stopped (01/28- 01/30). - Bcx 01/30 and 01/31 Negative - Bcx 02/01 and 02/03 NGTD - Continue Vancomycin (01/28/2021-02/12/2021 ) - 02/03 TTE: Normal LV and RV size and systolic function. No gross valvular vegetations. - 02/03 New Tunneled Catheter placed (for TPN and IV abx) Assessment & Plan (02/04/2021 3:54 PM CHAIN SAW DRIVER): Presented with high-grade fevers x1 day following use/flushing of his Rt tunneled line (for TPN). No other localizing symptoms. Started on Cefepime and Vancomycin (01/28). CT abdomen pelvis with contrast redemonstrated changes of prior hernia repair with large and small bowel anastomoses and double-barrel fistula with interval increase in ventral hernia size with multiple loops of nonobstructed bowel. There were no organized fluid collections noted. UA without pyuria or bacteriuria. Chest x-ray without any evidence of pneumonia. Blood cultures x2 (01/29) with MRSE. IR consulted, s/p removal of Rt tunneled line (01/29). Cefepime stopped (01/28- 01/30). - ID following - Continue Vancomycin (01/28/2021-02/12/2021 ) - Follow daily blood cultures (first negative 01/31 abd 02/01) - 02/03 TTE: Normal LV and RV size and systolic function. No gross valvular vegetations. - 02/03 New Tunneled Catheter placed (for TPN and IV abx) Assessment & Plan (02/03/2021 2:26 PM CHAIN SAW DRIVER): Presented with high-grade fevers x1 day following use/flushing of his Rt tunneled line (for TPN). No other localizing symptoms. Started on Cefepime and Vancomycin (01/28). CT abdomen pelvis with contrast redemonstrated changes of prior hernia repair with large and small bowel anastomoses and double-barrel fistula with interval increase in ventral hernia size with multiple loops of nonobstructed bowel. There were no organized fluid collections noted. UA without pyuria or bacteriuria. Chest x-ray without any evidence of pneumonia. Blood cultures x2 (01/29) with MRSE. IR consulted, s/p removal of Rt tunneled line (01/29). Cefepime stopped (01/28- 01/30). - ID following - Continue Vancomycin (01/28- ), duration TBD - Follow daily blood cultures (first negative 01/31 abd 02/01) - Pending TTE - 02/03 New Tunneled Catheter placed (for TPN and IV abx) Assessment & Plan (02/02/2021 4:39 PM CHAIN SAW DRIVER): Presented with high-grade fevers x1 day following use/flushing of his Rt tunneled line (for TPN). No other localizing symptoms. Started on Cefepime and Vancomycin (01/28). CT abdomen pelvis with contrast redemonstrated changes of prior hernia repair with large and small bowel anastomoses and double-barrel fistula with interval increase in ventral hernia size with multiple loops of nonobstructed bowel. There were no organized fluid collections noted. UA without pyuria or bacteriuria. Chest x-ray without any evidence of pneumonia. Blood cultures x2 (01/29) with MRSE. IR consulted, s/p removal of Rt tunneled line (01/29). Cefepime stopped (01/28- 01/30). - ID following - Continue Vancomycin (01/28- ), duration TBD - Follow daily blood cultures (first negative 01/31) - Pending TTE - IR consult for tunneled line placement (for TPN and IV abx), earliest would be tomorrow (negative BCx 01/31 and 02/01) Assessment & Plan (02/01/2021 4:12 PM CHAIN SAW DRIVER): Presented with high-grade fevers x1 day following use/flushing of his Rt tunneled line (for TPN). No other localizing symptoms. Started on Cefepime and Vancomycin (01/28). CT abdomen pelvis with contrast redemonstrated changes of prior hernia repair with large and small bowel anastomoses and double-barrel fistula with interval increase in ventral hernia size with multiple loops of nonobstructed bowel. There were no organized fluid collections noted. UA without pyuria or bacteriuria. Chest x-ray without any evidence of pneumonia. Blood cultures x2 (01/29) with MRSE. IR consulted, s/p removal of Rt tunneled line (01/29). Cefepime stopped (01/28- 01/30). - ID following - Continue Vancomycin (01/28- ) - Daily blood cultures - Hold off placing central line for TPN until BCx negative for at least 48hrs Assessment & Plan (01/31/2021 4:18 PM CHAIN SAW DRIVER): Presented with high-grade fevers x1 day following use/flushing of his Rt tunneled line (for TPN). No other localizing symptoms. Started on Cefepime and Vancomycin (01/28). CT abdomen pelvis with contrast redemonstrated changes of prior hernia repair with large and small bowel anastomoses and double-barrel fistula with interval increase in ventral hernia size with multiple loops of nonobstructed bowel. There were no organized fluid collections noted. UA without pyuria or bacteriuria. Chest x-ray without any evidence of pneumonia. Blood cultures x2 (01/29) with MRSE. IR consulted, s/p removal of Rt tunneled line (01/29). Cefepime stopped (01/28- 01/30). - ID following - Continue Vancomycin (01/28- ) - Daily blood cultures - Hold off placing central line for TPN until BCx negative for at least 48hrs Assessment & Plan (01/30/2021 6:11 PM CHAIN SAW DRIVER): Presented with high-grade fevers x1 day following use/flushing of his Rt tunneled line (for TPN). No other localizing symptoms. Started on Cefepime and Vancomycin (01/28). CT abdomen pelvis with contrast redemonstrated changes of prior hernia repair with large and small bowel anastomoses and double-barrel fistula with interval increase in ventral hernia size with multiple loops of nonobstructed bowel. There were no organized fluid collections noted. UA without pyuria or bacteriuria. Chest x-ray without any evidence of pneumonia. Blood cultures x2 (01/28) with MRSE. IR consulted, s/p removal of Rt tunneled line (01/29). - ID following - Continue Vancomycin (01/28- ) - Stop Cefepime - Daily blood cultures - Hold off placing central line for TPN until BCx negative for at least 48hrs Assessment & Plan (10/01/2020 10:18 AM CDT): - Unclear source - Bcx 09/06 Bacteroides -09/08 Echo- EF 75% - Bcx here negative 09/12 &09/16 - meropenem through 09/20 - currently off Abx 10/01: WBC wnl, afebrile off abx. CTM. Ileus 10/01/2020 10/18/2020 Assessment & Plan (10/15/2020 9:42 AM CDT): - not obstructed on CT 09/26 - daily bowel reg including suppositories 10/01: Arrives to floor w/ fecal incontinence device in place w/ stool in bag. Abd nondistended, nontender. NGT low output. - Removed NGT this am. - SUPER[employer] to [facility] for swallow study and speaking valve for tracheostomy. - Stop bowel reg. C. Diff pending for diarrhea (See Diarrhea) 10/03 C-diff negative from 10/01. NPO at this time and receiving TPN. If appropriate will do swallow evaluation and attempt PO diet and monitor fistula output. 10/04 Likely high output fistula. NPO/TPN 10/06 NPO/TPN, Monitor ECF output. 10/09 NPO/TPN. ECF with 550 ml output. Wound VAC over wound with ostomy bag isolator. GAEL drain removed (SEE ABD WOUND DEHISCENCE FOR MANAGEMENT) ECF: NPO/TPN RESOLVED Diarrhea 10/01/2020 10/18/2020 Assessment & Plan (10/15/2020 9:36 AM CDT): 10/01: fecal incontinence device in place draining brown liquid stool. C. Diff pending 10/02: Output down, removed Fecal device. C. Diff negative. - Consider loperamide PRN 10/07 confirmed C diff negative, will restart Loperamide 10/15 RESOLVED ATN (acute tubular necrosis) 10/01/2020 10/20/2020 Assessment & Plan (10/16/2020 7:58 AM CDT): Renal consulted, followed while in SICU now signed off 09/29 with following recs: Will continue to monitor for renal recovery. Cont. With D5W @ 100cc/hr to correct 50% volume loss due to post ATN diuresis DC trialysis line. Urine output has increased substantially secondary to post ATN diuresis. Avoid diuretics. Cont on Sodium Bicarbonate 650 mg TID. Continue to avoid Nephrotoxic medications, including NSAIDS, contrast dyes (unless absolutely necessary) as well as ACEI/ARB. Continue to closely monitor kidney function and Urine Output while waiting for signs of renal recovery Avoid hypotension, maintain MAP >65. 10/01: OK by renal to remove trialysis, place Hickmann catheter per IR tomorrow. Continues to have copious UOP (4 L daily). Repleteing 02/08 to 1 w/ D5W at 100 cc/hr d/t hypernatremia (See Hypernatremia) 10/02: Stopped D5W given normalization of Sodium. Cr downtrending still. UOP decreased to 2.5 L daily. No further repletion. - Cancelled VIR placement of Hickmann catheter d/t resp status today. 10/05 creatinine down to 1.62 with 1070 urine output. Renal following. 10/06 creatinine remains 1.6, possible new baseline. Urine output 1765 ml. 10/09 creatinine remains 1.56 with adequate urine output 10/15 Cr 1.2, UOP 610cc/24h 10/16: Cr 1.2, UOP 0.5 cc/kg/hr Plan for Hickmann for longer term access Hypernatremia 10/01/2020 10/04/2020 Assessment & Plan (10/04/2020 3:12 PM CDT): 10/01: Sodium 146, likely d/t post-ATN diuresis and large volume loss w/ high UOP. - Continue 1/2 to 1 w/ D5W and CTM BID BMP's to watch sodium. 10/02: Sodium 143. Continue BID BMP's. Stopped D5W. 10/04 Sodium 146. Resolved Lactic acidosis 08/18/2017 08/19/2017 Hyperkalemia 08/18/2017 08/19/2017 Leukocytosis 08/18/2017 08/19/2017 Acute respiratory failure 08/18/2017 Assessment & Plan (11/06/2020 10:04 AM CDT): - Broad spectrum abx for presumed PNA - 8 Shiley perc 09/16 --> 6 Shiley prox XLT - 10/06 passed swallow evaluation to Dysph 2 with thin liquids - 10/17 decannulated trach Mesenteric ischemia 08/17/2017 08/19/19 Overview (08/17/2017): Added automatically from request for surgery [id number] Pneumatosis coli 07/19/2017 10/26/2023 Overview (02/15/2022): Pneumatosis of the ascending colon. Encounters Date Type Department Care Team Description 10/11/2024 10:35 AM CDT Lab [address] [address] Prediabetes; Mixed hyperlipidemia; Screening for prostate cancer; Need for hepatitis B screening test; Hypogonadism male 10/11/2024 Results Follow-Up [facility] Primary Care at [address] [phone] Byron Peterson MD Hemoglobin A1c, Lipid panel, Comprehensive metabolic panel, Additional followed-up results: 6 10/11/2024 Telephone [facility] Primary Care at [address] [phone] Byron Peterson MD lab order 10/10/2024 10:30 AM CDT Office Visit [facility] Medical [facility] Primary Care at [address] [phone] Byron Peterson MD Hospital discharge follow-up (Primary Dx); Hypertension, essential; LIBRA (obstructive sleep apnea); Screening for prostate cancer; Need for hepatitis B screening test 10/05/[address] [facility] Medical [facility] Primary Care at [address] [phone] Byron Peterson MD MELLISA Questions 09/14/2024 9:00 AM CDT Office Visit [facility] Otolaryngology [address] [place] [phone] Jak Olivo II, MD Sensorineural hearing loss (SNHL) of both ears (Primary Dx); Dysfunction of both eustachian tubes; Perforation of right tympanic membrane 09/07/2024 9:45 AM CDT Office Visit [facility] Primary Care at [address] [phone] Byron Peterson MD Moderate episode of recurrent major depressive disorder (HCC) (Primary Dx); Obstructive sleep apnea (adult) (pediatric); Screening for prostate cancer; Personal history of nicotine dependence; Mixed hyperlipidemia; Prediabetes 09/06/2024 10:40 AM CDT Office Visit [facility] Advanced [facility] ([facility]) - [facility] ENT [facility] [facility] [address] [place] [address] [place] [address] Avis Bee PA Sensorineural hearing loss (SNHL) of both ears (Primary Dx); Dysfunction of both eustachian tubes 08/28/2024 2:30 PM CDT Office Visit [facility] Acute and Critical Care Services [address] [facility] [address] [place] [address] H/O ventral hernia (Primary Dx) 07/13/2024 10:00 AM CDT Office Visit [facility] Phys[facility] Otolaryngology [address] [place] [phone] Jak Olivo II, MD Recurrent acute suppurative otitis media of right ear without spontaneous rupture of tympanic membrane (Primary Dx); Sensorineural hearing loss (SNHL) of both ears from Last 3 Months Immunizations Immunization Administration Dates Next Due Influenza LAIV (Nasal) 11/21/2021 Influenza, Quad, Adjuvantate d, Intramuscular 02/02/2021 Influenza, Quadrivalent, Alyce l Culture-based MDCK, Preservative Free, Antibiotic Free, Intramuscular 12/17/2022 Influenza, Quadrivalent, Spl it, Preservative Free, Intramuscular 10/08/2021,02/02/2021,12/02/2020,01/02,02/20/2018,12/14/2015 Influenza, Trivalent, IM (MDV) 01/02/2019,2013 Influenza, Trivalent, Preser vative Free, Intramuscular 01/20/2024 Influenza, Unspecified 02/16/2023(Deferr ed: Patient Refused),12/09/2022,02/07/2022(Deferre d: Patient Refused),02/02/2021 CatchFree SARS-CoV-2 Monovalent Vaccination (12+ Yrs) PURPLE 02/11/2021,02/11/2021 Pneumococcal Conjugate Pcv20 01/20/2024 Pneumococcal Polysaccharide PPV23 11/11/2016 Sars-CoV-2, Unspecified 02/11/2021 Tdap 07/18/2014 Surgical History Surgery Date Site/Laterality Comments REVISION / TAKEDOWN COLOSTOMY 02/13/2018 Open Colostomy Takedown, excision hernia mesh, parastomal hernia repair, ventral hernia repai, abd wall reconstruction w/ biologic mesh COLONOSCOPY 12/23/2017 CHOLECYSTECTOMY TONSILLECTOMY WOUND EXPLORATION 05/30/2018 opening of tunneled wound WOUND EXPLORATION 08/22/2018 Wound exploration and drainage of subcutaneous abscess TUNNELED LINE PLACEMENT > 5 YEARS 10/09/2020 N/A WISDOM TOOTH EXTRACTION COLECTOMY 02/08/2008 - 02/06/2009 due to diverticulitis COLECTOMY 08/17/2017 Exploratory laparotomy, excision of a ventral hernia mesh, completion left colectomy, end-colostomy creation splenic flexure mobilization SMALL BOWEL RESECTION 09/08/2020 Re-explor recent laparotomy, abdominal wall debridement, athera placement, exchange pleurovac cannister HERNIA REPAIR EXPLORATORY LAPAROTOMY 09/04/2020 Ex Lap, extensive adhesiolysis, reduction multiple incarcerated hernia x 8, repair enterotomy, Ab washout, wound Vac, Right # [address] TRACHEOSTOMY 09/18/2020 EXPLORATORY LAPAROTOMY W/ BOWEL RESECTION 09/10/2020 Ex lap, resection small bowel, exchange wound vac REMOVE TUNNELED LINE 12/19/2020 Left TUNNELED LINE PLACEMENT > 5 YEARS 01/02/2021 N/A REMOVE TUNNELED LINE 01/29/2021 Left TUNNELED LINE PLACEMENT > 5 YEARS 02/03/2021 N/A TUNNELED LINE PLACEMENT > 5 YEARS 08/03/2021 N/A REMOVE TUNNELED LINE 01/27/2022 Left TUNNELED LINE PLACEMENT > 5 YEARS 01/29/2022 N/A CENTRAL LINE PLACEMENT > 5 YEARS 03/29/2022 N/A TYMPANOSTOMY TUBE PLACEMENT 08/15/2023 Right EYE SURGERY Left cataract 10/2023 MYRINGOTOMY W/TYMPANOSTOMY TUBE INSERTION 01/04/2024 Right MYRINGOTOMY WITH T TUBE PLACEMENT AND REMOVAL RIGHT MIDDLE EAR FOREIGN BODY Medical History Medical History Date Comments Adynamic ileus history of Anxiety Depression Diverticulosis HLD (hyperlipidemia) Pneumatosis coli Tobacco abuse 08/18/2017 smokes 1 ppd GERD (gastroesophageal reflux disease) Osteoarthritis MRSA (methicillin resistant Staphylococcus aureu s) abdominal wound 2020 Fatty liver Sleep apnea 2009 does not use CPA P Enterocutaneous fistula history of Acute respiratory failure 2020 Sepsis without acute organ dysfunction (HCC) HL (hearing loss) right ear Tinnitus Unspecified osteoarthritis, unspecified site 08/2021 Fungemia 03/25/2022 Obesity Foreign body of ear, right Eustachian tube dysfunction, right Motion sickness Arthritis Wears reading glasses Teeth missing no dentures Family History Medical History Relation Name Comments Hyperlipidemia Father Heart failure Mother Hypertension Mother Valvular heart disease Mother Heart attack Other uncle Anesthesia problems Neg Hx Relation Name Status Comments Father Alive Mother Other uncle Sister beulah Alive Social History Tobacco Use Types Packs/Day Years Used Date Smoking Tobacco: Every Day Cigarettes 1 42.4 Started: 1981; Last attempted to quit: 02/19/2022 Passive Smoke Exposure: Past Smokeless Tobacco: Never Tobacco Cessation:Ready to Q uit: Not Asked; Counseling Given: Not Answered Comments:Smokes a pack a day Alcohol Use [...] often do you attend chur ch or jew services? Never 03/10/2022 Do you belong to any clubs o r organizations such as protestant groups, unions, fraternal or athletic groups, or [...] place to sleep or slept in a assisted (including now)? No 02/03/2022 PHQ-9 Answer Date Recorded PHQ-9 Total Score 9 09/07/2024 Personal Safety Answer Date Recorded Have you ever been in or are you currently in a harmful physical or emotional relationship or is someone making you feel afraid or unsafe? Denies 01/04/2024 Sex and Gender Information Value Date Recorded Sex Assigned at Not on file Legal Sex Male 12:33 AM [employer] Gender Identity Not on file Sexual Orientation Not on file Obstetrics History Last Filed Vital Signs Vital Sign Reading Time Taken Comments Blood Pressure 120/60 10/10/2024 10:46 AM CDT Pulse 86 10/10/2024 10:46 AM CDT Temperature 36.1 C (96.9 F) 10/10/2024 10:46 AM CDT Respiratory Rate 20 10/10/2024 10:46 AM CDT Oxygen Saturation 96% 10/10/2024 10:46 AM CDT Inhaled Oxygen Concentration - - Weight 119.7 kg (264 lb) 10/10/2024 10:46 AM CDT Height 180.3 cm (5' 11) 10/10/2024 10:46 AM CDT Body Mass Index 36.82 10/10/2024 10:46 AM CDT Plan of Treatment Health Maintenance Due Date Last Done Comments Hepatitis B Screening 08/23/1981 Lung Cancer Screening 08/29/2024 08/29/2023 Covid-19 Vaccine ( season) 2024 12/17/2022, 02/11/2021, 02/11/2021, Additional history exists Influenza Vaccine (#1) 2024 , 12/17/2022, 12/09/2022, Additional history exists Regular Well Visit/Exam 18-64 01/19/2025 01/20/2024 Depression Screening 09/07/2025 09/07/2024, 09/07/2024, 04/27/2024, Additional history exists Zoster Vaccine (1 of 2) 09/07/2025 Post poned from 08/23/2013 (Insurance / Financial) DTaP/Tdap/Td Vaccine (2 - Td or Tdap) 02/06/2026 07/18/2014 Postponed from 07/18/2024 (Insurance / Financial) Prostate Cancer Screening-PSA 10/11/2026 10/11/2024, 10/11/2024, 06/22/2022, Additional history exists Colon Cancer Screening-CT Colonography Discontinued 12/23/2017 Colon Cancer Screening-Colonoscopy Discontinued 12/23/2017 Colon Cancer Screening-DNA Stool Discontinued 12/23/2017 Colon Cancer Screening-FIT Discontinued 12/23/2017 Colon Cancer Screening-Sigmoidoscopy Discontinued 12/23/2017 Hepatitis C Screening Completed 06/22/2022 Pneumococcal vaccine <65 Completed 01/20/2024, 06/2016 Medical Devices Implanted Type Area Podiatrist Device Identifier Shelf Expiration Date Model / Serial / Lot Acelity Lp Inc [id number] Strattice [id number] Reconstructive Matrix Tissue Porcine Dermis Latex Free - [id number] - [id number] Implanted:Qty: 1 on 02/13/2018 by Bradford Martines MD at [facility] Mesh N/A: Abdomen Acel[employer] Lp Inc 10/08/2019 [id number] / [id number] / [id number] Allergan Usa [employer] Strattice [id number] Reconstructive 500sq Cm Xthick Matrix Tissue Latex Free [id number] - [id number] Implanted:Qty: 1 on 04/13/2022 by Rafael Granados MD at [facility] Mesh Abdomen Allergan Usa [employer] [id number] 08/06/2022 [id number] / / [id number] Ethicon Endo Surgery Vwml Vicryl [id number] Absorbable Woven Flat Mesh Surgical Hernia Repair - S0 - [id number] Implanted:Qty: 1 on 09/10/2020 by Lei Ramirez MD PhD at [facility] Other - see comments N/A: Abdomen Eth[employer] [id number] 04/06/2025 [id number] / 0 / [id number] TigerText Inc 1.32mm 4.8mm Soft Modify Less Clogg Compliancy Ear Short T Tube [id number] - [id number] Implanted:Qty: 1 on 01/04/2024 by Jak Olivo II, MD at [facility] Right: Ear Olympus Padmini Inc 02/13/2033 [id number] / / [id number] Celnyx Allvendome 1699 [place] Cartridge Micro Clip Internal Titanium Hemostatic [id number] - [id number] Implanted:Qty: 2 on 04/13/2022 by Angella Roe MD at [facility] Right: Leg Celnyx Allian 07/07/2026 [id number] / / [id number] mydala Broadwater 2.5mm Ring Pin Ultrasonic Doppler 20mhz Geospatial Specialist Anastomosis [id number] - [id number] Implanted:Qty: 1 on 04/13/2022 by Angella Roe MD at [facility] mydala [id number] / / Procedures Procedure Name Priority Date/Time Associated Diagnosis Comments TOTAL TESTOSTERONE Routine 10/11/2024 11:22 AM CDT Hypogonadism male EGFR Routine 10/11/2024 10:49 AM CDT Mixed hyperlipidemia DIFFERENTIAL AUTO Routine 10/11/2024 10:49 AM CDT Mixed hyperlipidemia PSA SCREEN Routine 10/11/2024 10:49 AM CDT Screening for prostate cancer PSA SCREEN Routine 10/11/2024 10:49 AM CDT Screening for prostate cancer CBC WITH AUTO DIFFERENTIAL Routine 10/11/2024 10:49 AM CDT Mixed hyperlipidemia COMPREHENSIVE METABOLIC PANEL Routine 10/11/2024 10:49 AM CDT Mixed hyperlipidemia LIPID PANEL Routine 10/11/2024 10:49 AM CDT Mixed hyperlipidemia HEMOGLOBIN A1C Routine 10/11/2024 10:49 AM CDT Prediabetes HEPATITIS B SURFACE ANTIBODY (IMMUNE STATUS) Routine 10/11/2024 10:49 AM CDT Need for hepatitis B screening test CT LUNG CANCER SCREENING Schedule Routine, Read Routine (OP Routine) 08/29/2023 2:33 PM CDT Personal history of nicotine dependence HEPATITIS C ANTIBODY Routine 06/22/2022 1:26 PM CDT Encounter for hepatitis C screening test for low risk patient COLONOSCOPY 12/23/2017 7:23 AM CHAIN [employer]W [employer]IVER from Last 3 Months or Most Recently Relevant to Health Maintenance Results * Total testosterone (10/11/2024 11:22 AM CDT) Testosterone 272.00 193.00 - 740.00 ng/dL Blood 10/11/2024 11:2 2 AM CDT 10/11/2024 2:22 PM CDT Byron Peterson MD LAB BLOOD ORDERABLES Final Result [facility] [address] [facility] Department [place] [address] * eGFR (10/11/2024 10:49 AM CDT) eGFR 67 >=60 mL/min/1. 73 m2 Comment: Interpretive Data Reference Interval Normal >/= 90 mL/min/1.73m2 Mildly decreased* 60 - 89 mL/min/1.73m2 Mildly to moderately decreased 45 - 59 mL/min/1.73m2 Moderately to severely decreased 30 - 44 mL/min/1.73m2 Severely decreased 15 - 29 mL/min/1.73m2 Kidney Failure < 15 mL/min/1.73m2 *Relative to young adult level Estimated glomerular filtration rate is determined by the 2020 CKD-EPI equation recommended by the National Kidney Foundation (A Unifying Approach to GFR Estimation: Recommendations of the NKF-ASK Task Force on Reassessing the Inclusion of Race in Diagnosing Kidney Disease, JASN 2020). The CKD-EPI equation should not be used for patients with unstable renal function and has not been validated in children and those over 70. Current interpretive data was last reviewed 2020. Blood 10/11/2024 10:4 9 AM CDT 10/11/2024 2:01 PM CDT us Byron Peterson MD LAB BLOOD ORDERABLES Final Result [facility] [address] [facility] Department [place] [address] * (ABNORMAL) Differential, auto (10/11/2024 10:49 AM CDT) Neutrophil abs 6.96(H) 1.50 - 6.50 K/cumm Imm gran abs 0.03 0.00 - 0.10 K/cumm [facility] Lymphocyte abs 1.59 0.80 - 3.30 K/cumm [facility] Monocyte abs 0.64 0.20 - 0.80 K/cumm [facility] Eosinophil abs 0.10 0.00 - 0.50 K/cumm [facility] Basophil abs 0.03 0.00 - 0.10 K/cumm [facility] Neutrophil pct 74.5 % [facility] Comment: Interpretive Data Percent cell count reference ranges are not reported, since discordance with absolute values may lead to misinterpretation of CBC data. Current Interpretive Data was last revised on 2017. Imm gran pct 0.3 % [facility] Comment: Interpretive Data Percent cell count reference ranges are not reported, since discordance with absolute values may lead to misinterpretation of CBC data. Current Interpretive Data was last revised on 2017. Lymphocyte pct 17.0 % [facility] Comment: Interpretive Data Percent cell count reference ranges are not reported, since discordance with absolute values may lead to misinterpretation of CBC data. Current Interpretive Data was last revised on 2017. Monocyte pct 6.8 % [facility] Comment: Interpretive Data Percent cell count reference ranges are not reported, since discordance with absolute values may lead to misinterpretation of CBC data. Current Interpretive Data was last revised on 2017. Eosinophil pct 1.1 % [facility] Comment: Interpretive Data Percent cell count reference ranges are not reported, since discordance with absolute values may lead to misinterpretation of CBC data. Current Interpretive Data was last revised on 2017. Basophil pct 0.3 % [facility] Comment: Interpretive Data Percent cell count reference ranges are not reported, since discordance with absolute values may lead to misinterpretation of CBC data. Current Interpretive Data was last revised on 2017. Blood 10/11/2024 10:4 9 AM CDT 10/11/2024 1:57 PM CDT Byron Peterson MD LAB BLOOD ORDERABLES Final Result Performing Organization Address City/[facility] Co de Phone Number [facility] [place] [address] * PSA screen (10/11/2024 10:49 AM CDT) PSA-Total 0.77 <=5.40 ng/mL Comment: Interpretive Data AGE SEX REFERENCE INTERVAL 0 minutes-150 years Female None 0 minutes-49 years Male None 50-59 years Male 0-3.90 60-69 years Male 0-5.40 70-79 years Male 0-6.20 80-150 years Male 0-6.20 The Lorin PSA Total assay procedure was used. Results from different manufacturers or methods may not be comparable. Serial testing should be performed using the same method. Current interpretive data last revised 21. Blood 10/11/2024 10:4 9 AM CDT 10/11/2024 2:01 PM CDT Byron Peterson MD LAB BLOOD ORDERABLES Final Result Performing Organization Address City/[facility] Co de Phone Number [facility] [address] [facility] [place] [address] * PSA screen (10/11/2024 10:49 AM CDT) PSA-Total 0.77 <=5.40 ng/mL Comment: Interpretive Data AGE SEX REFERENCE INTERVAL 0 minutes-150 years Female None 0 minutes-49 years Male None 50-59 years Male 0-3.90 60-69 years Male 0-5.40 70-79 years Male 0-6.20 80-150 years Male 0-6.20 The Lorin PSA Total assay procedure was used. Results from different manufacturers or methods may not be comparable. Serial testing should be performed using the same method. Current interpretive data last revised 21. Blood 10/11/2024 10:4 9 AM CDT 10/11/2024 2:01 PM CDT Byron Peterson MD LAB BLOOD ORDERABLES Final Result Performing Organization Address City/[facility] Co de Phone Number DAVE [address] [place] [address] * (ABNORMAL) CBC with auto differential (10/11/2024 10:49 AM CDT) WBC 9.35 3.80 - 9.90 K/cumm Hgb 15.5 13.0 - 17.5 g/dL [facility] Hct 48.5 38.9 - 50.3 % [facility] Plt 294 150 - 400 K/cumm [facility] MPV 11.7 9.1 - 12.3 fL [facility] RBC 5.21 4.30 - 5.80 M/cumm [facility] MCV 93.1 81.3 - 96.4 fL [facility] MCH 29.8 27.1 - 33.3 pg [facility] MCHC 32.0(L) 32.3 - 35.7 g/dL [facility] RDW CV 13.1 11.1 - 14.9 % [facility] RDW SD 44.5 35.7 - 48.1 fL [facility] NRBC abs 0.00 0.00 - 0.01 K/cumm [facility] Blood 10/11/2024 10:4 9 AM CDT 10/11/2024 1:57 PM CDT Byron Peterson MD LAB BLOOD ORDERABLES Final Result Performing Organization Address City/[facility] Co de Phone Number DAVE [address] [place] [address] * Hepatitis B surface antibody (immune status) Blood (10/11/2024 10:49 AM CDT) Pathologist [facility] HBsAb (immune status) Nonreactive Comment: Interpretive Data Nonreactive: This result is consistent with a lack of immunity to Hepatitis B Virus when used in the setting of routine screening. Equivocal: The immune status of the individual should be further assessed, if appropriate, after consideration of clinical status, risk factors, and additional diagnostic information. Reactive: This result is consistent with immunity to Hepatitis B Virus when used in the setting of routine screening. Current interpretive data was last revised on 19. Blood 10/11/2024 10:4 9 AM CDT 10/11/2024 2:01 PM CDT Result [facility] Byron Peterson MD LAB MICROBIOLOGY - GENERAL ORDERABLES Final Result Performing Organization Address [facility] Co de Phone Number [address] [address] * (ABNORMAL) Hemoglobin A1c (10/11/2024 10:49 AM CDT) Pathologist [facility] Hgb A1C 5.7(H) 4.0 - 5.6 % Estimated Average Glucose 117 mg/dL [facility] Comment: The ADA recommends reporting an estimated Average Glucose (eAG) with all Hemoglobin A1c results using the equation derived from a study of 507 normal and diabetic adults. Minority populations were underrepresented and children were not included. (Diabetes Care 31:3481-1549, 2008). The eAG is not equivalent to a fasting glucose. Blood 10/11/2024 10:4 9 AM CDT 10/11/2024 1:57 PM CDT Byron Peterson MD LAB BLOOD ORDERABLES Final Result Performing Organization Address City/[facility] Co de Phone Number [address] [address] * (ABNORMAL) Lipid panel (10/11/2024 10:49 AM CDT) Cholesterol 181 30 - 199 mg/dL Comment: Interpretive Data Ages < or = 19 years Acceptable: <170 mg/dL Borderline high: 170-199 mg/dL High: >or= 200 mg/dL Ages > or = 20 years Desirable: <200 mg/dL Borderline high: 200-239 mg/dL High: >or= 240 mg/dL Literature References: 1. Expert Panel on Integrated Guidelines for Cardiovascular Health and Risk Reduction in Children and Adolescents. Pediatrics 2011;128:S213 2. NCEP Expert Panel. Circulation 2004;110:227 Current Interpretive Data was last revised on 2017. Triglycerides 205(H) <=149 mg/dL [facility] Comment: Interpretive Data Ages < or = 9 years Acceptable: <75 mg/dL Borderline high: 75-99 mg/dL High: >or= 100 mg/dL Ages 10 to 20 years Acceptable: <90 mg/dL Borderline high: 90-129 mg/dL High: >or= 130 mg/dL Ages > or = 20 years Desirable: <150 mg/dL Borderline high: 150-199 mg/dL High: 200-499 mg/dL Very high: >or= 499 mg/dL Literature References: 1. Expert Panel on Integrated Guidelines for Cardiovascular Health and Risk Reduction in Children and Adolescents. Pediatrics 2011;128:S213 2. NCEP Expert Panel. Circulation 2004;110:227 Current Interpretive Data was last revised on 2017. HDL 33(L) >=40 mg/dL [facility] Comment: Interpretive Data Ages < or = 19 years Acceptable: >45 mg/dL Borderline low: 40-45 mg/dL Low: <40 mg/dL Ages > or = 20 years Desirable: >or= 60 mg/dL Low: <40 mg/dL Literature References: 1. Expert Panel on Integrated Guidelines for Cardiovascular Health and Risk Reduction in Children and Adolescents. Pediatrics 2011;128:S213 2. NCEP Expert Panel. Circulation 2004;110:227 Current Interpretive Data was last revised on 2017. LDL, calculated 112 <=129 mg/dL [facility] Comment: Interpretive Data Ages < or = 19 years Acceptable: <110 mg/dL Borderline high: 110-129 mg/dL High: >or= 130 mg/dL Ages > or = 20 years Optimal: <100 mg/dL Near optimal: 100-129 mg/dL Borderline high: 130-159 mg/dL High: >160 mg/dL Calculated using the Alfie LDL-C estimating equation. This equation was implemented on 2023. Prior to this date LDL-C was estimated using the Friedewald equation. Literature References: 1. Expert Panel on Integrated Guidelines for Cardiovascular Health and Risk Reduction in Children and Adolescents. Pediatrics 2011;128:S213 2. NCEP Expert Panel. Circulation 2004;110:227 3. Alfie Arboleda et al. SHARLA Cardiol. 2019June 07;5(5):540-548. doi: 10.1001/jamacardio.2020.0013 Current Interpretive Data was last revised on 2023. Non-HDL Cholesterol 148 mg/dL [facility] Comment: Interpretive Data Ages < or = 19 years Acceptable: <120 mg/dL Borderline high: 120-144 mg/dL High: >145 mg/dL Ages > or = 20 years When triglycerides are >200 mg/dL, Non-HDL cholesterol is a secondary target of therapy with treatment goals that are 30 mg/dL greater than the LDL cholesterol target. Literature References: 1. Expert Panel on Integrated Guidelines for Cardiovascular Health and Risk Reduction in Children and Adolescents. Pediatrics 2011;128:S213 2. NCEP Expert Panel. Circulation 2004;110:227 Current Interpretive Data was last revised on 2017. Chol/HDL ratio 5 [facility] Blood 10/11/2024 10:4 9 AM CDT 10/11/2024 2:01 PM CDT us Byron Peterson MD LAB BLOOD ORDERABLES Final Result [facility] [address] [facility] Department [place] [address] * Comprehensive metabolic panel (10/11/2024 10:49 AM CDT) Sodium 136 135 - 145 mmol/L Potassium, pl 4.8 3.3 - 4.9 mmol/L [facility] Chloride 100 97 - 110 mmol/L [facility] CO2 27 22 - 32 mmol/L [facility] Anion gap 9 2 - 15 mmol/L [facility] BUN 16 6 - 25 mg/dL [facility] Creatinine 1.22 0.80 - 1.30 mg/dL [facility] Glucose 101 70 - 199 mg/dL [facility] Comment: Interpretive Data Fasting glucose >/= 126 mg/dl is diagnostic for diabetes. Fasting is defined as no caloric intake for at least 8 hours. Fasting glucose between 100 mg/dl to 125 mg/dl is diagnostic of prediabetes. In a patient with classic symptoms of hyperglycemia or hyperglycemic crisis, a random glucose >/= 200 mg/dl is diagnostic for diabetes. In the absence of unequivocal hyperglycemia, results should be confirmed by repeat testing. The classification and Diagnosis of Diabetes Diabetes Care 202; 46: S19-S40. Current interpretive data was last revised 2022. Calcium 9.8 8.5 - 10.3 mg/dL [facility] Bilirubin, total 0.3 0.1 - 1.2 mg/dL [facility] Protein, pl 7.7 6.5 - 8.5 g/dL [facility] Albumin 4.2 3.5 - 5.0 g/dL [facility] Alk phos 111 40 - 130 Units/L [facility] ALT 18 7 - 55 Units/L [facility] AST 27 10 - 50 Units/L [facility] Blood 10/11/2024 10:4 9 AM CDT 10/11/2024 2:01 PM CDT Byron Peterson MD LAB BLOOD ORDERABLES Final Result Performing Organization Address City/State/[facility] Phone Number [facility] [address] [facility] Department [place] [address] * CT Lung Cancer Screening (08/29/2023 2:33 PM CDT) Anatomical Region Laterality Modality Chest N/A Computed Tomogra phy 08/30/2023 12:2 1 PM CDT Narrative 08/30/2023 12:34 PM CDT EXAM DESCRIPTION: CT LUNG CANCER SCREENING REASON FOR STUDY: Screening CT of the chest in a former smoker with a 41 pack year smoking history. Additional history: The patient stopped smoking 1 year ago. TECHNIQUE: Low dose CT scan of the chest was performed without intravenous contrast using helical scanning technique. The exam extends from the lung apices through the lung bases. Automatic exposure control was used as a dose optimization technique. NOTE: This study was performed for the specific purposes of lung cancer screening and is not an alternative to diagnostic chest CT. RADIATION DOSE: CT dose index volume (CTDIvol) = 2.43 mGy COMPARISON: CT chest 01/27/2022 FINDINGS: SMOKING RELATED LUNG DISEASE: Mild pulmonary emphysema. LUNG NODULES: Atelectasis versus scarring in the lung bases partially limits evaluation. 4 mm solid nodule in the lateral right middle lobe, previously 6 mm (series 3, image 155). CORONARY ARTERY CALCIFICATION: [id number] OTHER: There is a chronic thick-walled small right pleural effusion, slightly decreased in size from the prior exam. No left effusion. No pneumothorax. The central airways are clear. No mediastinal mass. No thoracic lymphadenopathy. The heart is normal in size. No pericardial effusion. Mild atherosclerotic calcifications of the thoracic aorta. No thoracic aortic aneurysm. No acute fractures or suspicious osseous lesions. The visualized upper abdomen is normal. IMPRESSION: Atelectasis versus scarring in the lung bases partially limits evaluation. 4 mm right middle lobe lung nodule, previously 6 mm. Chronic thick-walled small right pleural effusion, slightly decreased in size. Lung-RADS category 2: Benign appearance or behavior. Recommendation: Low dose Screening CT of chest in 12 months. THIS IS AN ELECTRONICALLY VERIFIED FINAL REPORT 08/30/2023 12:34 PM - Electronically signed by Adryan Camarena M.D. KR: KR Report ID: [id number] Reading Location: [place] [address] Procedure Note Adryan Camarena MD - 08/30/2023 EXAM DESCRIPTION: CT LUNG CANCER SCREENING REASON FOR STUDY: Screening CT of the chest in a former smoker with a41 pack year smoking history. Additional history: The patient stopped smoking1 year ago. TECHNIQUE: Low dose CT scan of the chest was performed without intravenous contrast using helical scanning technique. The exam extends from the lung apices through the lung bases. Automatic exposure control was used as adose optimization technique. NOTE: This study was performed for the specific purposes of lung cancer screening and is not an alternative to diagnostic chest CT. RADIATION DOSE: CT dose index volume (CTDIvol) = 2.43 mGy COMPARISON: CT chest 01/27/2022 FINDINGS: SMOKING RELATED LUNG DISEASE: Mild pulmonary emphysema. LUNG NODULES: Atelectasis versus scarring in the lung bases partiallylimits evaluation. 4 mm solid nodule in the lateral right middle lobe,previously 6 mm (series 3, image 155). CORONARY ARTERY CALCIFICATION: Nzfeqfsk-pv-rbazic OTHER: There is a chronic thick-walled small right pleural effusion,slightly decreased in size from the prior exam. No left effusion. Nopneumothorax. The central airways are clear. No mediastinal mass. No thoracic lymphadenopathy. The heart is normal in size. No pericardial effusion.Mild atherosclerotic calcifications of the thoracic aorta. No thoracic aortic aneurysm. No acute fractures or suspicious osseous lesions. Thevisualized upper abdomen is normal. IMPRESSION: Atelectasis versus scarring in the lung bases partially limitsevaluation. 4 mm right middle lobe lung nodule, previously 6 mm. Chronic thick-walled small right pleural effusion, slightly decreased in size. Lung-RADS category 2: Benign appearance or behavior. Recommendation: Low dose Screening CT of chest in 12 months. THIS IS AN ELECTRONICALLY VERIFIED FINAL REPORT 08/30/2023 12:34 PM - Electronically signed by Adryan Camarena M.D. KR: KR Report ID: [id number] Reading Location: [place] [address] Byron Peterson MD IM CT PROCEDURES Final Res ult * Hepatitis C antibody (06/22/2022 1:26 PM CDT) Pathologist [facility] Department Hep C Ab Nonreactive Nonreactive DAVE HODGE Comment: Interpretive Data Nonreactive: Antibodies to HCV not detected. Does NOT exclude the possibility of recent exposure to HCV. Equivocal: Equivocal for HCV antibodies. Supplemental molecular testing will be automatically performed to determine infection status in accordance with current CDC screening recommendations. Reactive: Positive for HCV antibodies. This may represent current or past HCV infection. Supplemental molecular testing will be automatically performed to determine current infection status in accordance with current CDC screening recommendations. Interpretive data was last revised on 2019. 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 Room: [facility] ENDOSCOPY ROOM 02 Note Status: Finalized Procedure: Colonoscopy Indications: Screening for colorectal malignant neoplasm,Incidental - Preoperative assessment Referring MD: Yahir Crockett MD Providers: Bradford Martines M.D. Medicines: Monitored Anesthesia Care Complications: No immediate complications. Estimated Blood Loss: Estimated blood loss: none. Procedure: Pre-Anesthesia Assessment: - After reviewing the risks and benefits, thepatient was deemed in satisfactory condition to undergo the procedure. - Immediately prior to administration ofmedications, the patient was re-assessed for adequacy to receive sedatives. The benefits, risks and alternatives of theprocedure and sedation were discussed and informed consent was obtained. All questions were answered. Please referto the signed informed consent document in the medical record. The scope was passed under direct vision.The [id number] was introduced through the anusand advanced to the top of the Perez's pouch at about25 cm. The scope was then introduced through thecolostomy and advanced to the cecum, identified by appendiceal orifice and ileocecal valve. The colonoscopy was performed without difficulty. The patient toleratedthe procedure well. The quality of the bowel preparation was good. The bowel preparation used was SUPREP. Findings: The perianal and digital rectal examinations were normal. A patchy area of granular mucosa was found in the rectum. Biopsieswere taken with a cold forceps for histology. The colon (entire examined portion) appeared normal. Impression: - Granularity in the rectum. Biopsied. - The entire examined colon is normal. Recommendation: - Repeat colonoscopy in 5 years for surveillance. - Return to my office today. Electronically signed by Lang Martines Bradford Martines M.D. 12/23/2017 10:01:16 AM Number of Addenda: 0 Note Initiated On: 12/23/2017 7:23 AM Recognized by the [place] [employer] for promoting quality in endoscopy Bradford Martines MD ENDOSCOPY PROCEDURES Final Res ult from Last 3 Months or Most Recently Relevant to Health Maintenance Additional Health Concerns Infection Onset Date Last Indicated MDR gram neg/ESBL 07/25/2021 03/24/2022 Insurance [facility] MEDICARE ADVANTAGE [facility] MEDICARE ADVANTAGE IDPA IDMA [facility] MEDICARE ADVANTAGE [facility] MEDICARE ADVANTAGE [place] [employer] DIS[employer] [facility] MEDICARE ADVANTAGE U[employer] MEDICARE ADVANTAGE Advance Directives For more information, please contact: [phone] Documents on File Type Date Recorded Patient Sand Cutter Expl anation ADVANCE DIRECTIVE 03/22/2022 12:07 PM LASHAWN R OF BOAT DRIVER-MEDICAL * Full Code (Latest Code Status on File) Date Activated Date Inactivated Comments 03/25/2022 2:52 PM 05/10/2022 8:02 PM * Full Code Date Activated Date Inactivated Comments 01/25/2022 9:16 PM 01/30/2022 6:38 PM * Full Code Date Activated Date Inactivated Comments 07/26/2021 6:14 AM 08/04/2021 6:48 PM * Full Code Date Activated Date Inactivated Comments 04/24/2021 2:07 AM 04/25/2021 4:52 PM * Full Code Date Activated Date Inactivated Comments 01/29/2021 9:01 AM 02/14/2021 2:43 AM Care Teams Supervisor Drawing Relationship Specialty Start Date End Date Byron Peterson MD [address] [facility] [address] [place] [address] PCP - General Family Medicine 06/22/22 Bradford Martines MD Referring Physician Colon and Rectal Surgery 03/03/18 Sofia Gillespie OT [address] [facility] [address] [place] [address] Occupational Therapist Occupational Therapy 09/20/22 Jak Olivo II, [place] [address] Consulting Physician Otolaryngology 04/27/24 Nettie Robles NP [address] [place] [address] DR DIAZ [address] [place] [address] Nurse Practitioner Plastic Surgery 09/07/24
--- OUTSIDE RECORDS SUMMARY | 2024-10-13 20:09 | XMS_ITS | Encounter Summary ---
Author Organization [facility] Address [address] [place] [address] Care Team Providers Care Central Service Tech Name Role Phone Unavailable Primary Care Provider Unavailabl e Encounter Details Date Type Department Care Team (Late st Contact Info) Description 01/06/2021 Lab Requisition [facility] [address] [place] [address] [place] [address] [place] [address] Social History Tobacco Use Types [...] Date/Time Associated Diagnosis Comments PHOSPHORUS BLOOD STAT 01/06/2021 4:30 AM EXTRUSION PRESS SUPERVISOR documented in this encounter Results * (ABNORMAL) PHOSPHORUS BLOOD (01/06/2021 4:30 AM EXTRUSION PRESS SUPERVISOR) Phosphorus 4.9(H) 2.3 - 4.7 mg/dL 01/06/2021 12:44 PM EXTRUSION PRESS SUPERVISOR [facility] Blood BLOOD SPECIMEN / Unknown Venipuncture / Unknown 01/06/2021 4:30 AM EXTRUSION PRESS SUPERVISOR 01/06/2021 12:11 PM EXTRUSION PRESS SUPERVISOR us Julio Munoz MD LAB - CHEMISTRY ORDERABLES Fi nal Result [facility] [address] [place] [address] documented in this encounter Visit Diagnoses Not on filedocumented in this encounter
--- OUTSIDE RECORDS SUMMARY | 2024-10-13 20:09 | XMS_ITS | Encounter Summary ---
Author Organization [facility] Address [address] [place] [address] Care Team Providers Care Jailer Name Role Phone Unavailable Primary Care Provider Unavailabl e Encounter Details Date Type Department Care Team (Late st Contact Info) Description 12/19/2020 Lab Requisition [facility] [address] [place] [address] Rich Bishop MD [address] [place] [address] Social History Tobacco Use Types [...] Diagnosis Comments CBC W AUTO DIFFERENTIAL STAT 12/19/2020 1:05 PM RECYCLING COLLECTIONS DRIVER documented in this encounter Results * (ABNORMAL) CBC WITH DIFFERENTIAL (12/19/2020 1:05 PM RECYCLING COLLECTIONS DRIVER) WBC 7.4 4.4 - 10.7 x10E9/L 12/19/2020 1:38 PM RECYCLING COLLECTIONS DRIVER [facility] WBC Corrected 12/19/2020 1:38 PM RECYCLING COLLECTIONS DRIVER [facility] RBC 2.98(L) 3.80 - 5.40 x10E12/L 12/19/2020 1:38 PM RECYCLING COLLECTIONS DRIVER [facility] Hemoglobin 7.6(L) 12.0 - 17.6 gm/dL 12/19/2020 1:38 PM RECYCLING COLLECTIONS DRIVER [facility] Hematocrit 25.9(L) 35.2 - 51.7 % 12/19/2020 1:38 PM RECYCLING COLLECTIONS DRIVER [facility] MCV 86.9 80.7 - 98.3 fl 12/19/2020 1:38 PM RECYCLING COLLECTIONS DRIVER [facility] MCH 25.5(L) 26.7 - 34.0 pg 12/19/2020 1:[address] [facility] MCHC 29.3(L) 30.8 - 35.9 gm/dL 12/19/2020 1:[address] [facility] Platelet Count 154 153 - 416 x10E9/L 12/19/2020 1:[address] [facility] RDW-CV 14.6 12.1 - 14.9 % 12/19/2020 1:[address] [facility] MPV 13.8(H) 9.4 - 12.9 fl 12/19/2020 1:[address] [facility] Neutrophils % 76.2(H) 44.0 - 73.0 % 12/19/2020 1:[address] [facility] Lymphocytes % 14.3(L) 20.0 - 43.0 % 12/19/2020 1:[address] [facility] Monocytes % 8.3 5.0 - 13.0 % 12/19/2020 1:[address] [facility] Eosinophils % 0.5 0.0 - 6.0 % 12/19/2020 1:[address] [facility] Basophils % 0.3 0.0 - 2.0 % 12/19/2020 1:[address] [facility] Immature Granulocytes 0.4 0 - 1 % 12/19/2020 1:[address] [facility] Neutrophil Absolute 5.63 2.01 - 7.14 x10E9/L 12/19/2020 1:[address] [facility] Lymphocytes Absolute 1.06(L) 1.07 - 3.94 x10E9/L 12/19/2020 1:[address] [facility] Monocytes Absolute 0.61 0.26 - 1.07 x10E9/L 12/19/2020 1:[address] [facility] Eosinophils Absolute 0.04 0 - 0.47 x10E9/L 12/19/2020 1:[address] [facility] Basophils Absolute 0.02 0 - 0.08 x10E9/L 12/19/2020 1:[address] [facility] Immature Granulocytes Absolute 0.03 0.00 - 0.06 x10E9/L 12/19/2020 1:38 PM RECYCLING COLLECTIONS DRIVER [facility] nRBC Auto 0 /100 WBC 12/19/2020 1:38 PM RECYCLING COLLECTIONS DRIVER [facility] Blood BLOOD SPECIMEN / Unknown Venipuncture / Unknown 12/19/2020 1:05 PM RECYCLING COLLECTIONS DRIVER 12/19/2020 1:05 PM RECYCLING COLLECTIONS DRIVER Rich Bishop MD LAB - HEMATOLOGY ORDERABLES Baylee small Result Performing Organization Address City/State/[facility] Co de Phone Number [facility] [address] [place] [address] documented in this encounter Visit Diagnoses Not on filedocumented in this encounter
--- OUTSIDE RECORDS SUMMARY | 2024-10-13 20:09 | XMS_ITS | Encounter Summary ---
Author Organization [facility] Address [address] [place] [address] Care Team Providers Care Golf Club Manager Name Role Phone Unavailable Primary Care Provider Unavailabl e Encounter Details Date Type Department Care Team (Late st Contact Info) Description 12/18/2020 Lab Requisition [facility] [address] [place] [address] Rich Bishop MD [address] [place] [address] Social History Tobacco Use Types [...] Procedure Name Priority Date/Time Associated Diagnosis Comments CULTURE BLOOD STAT 12/18/2020 12:25 PM TERRA COTTA MOLD MAKER CULTURE BLOOD STAT 12/18/2020 12:06 PM TERRA COTTA MOLD MAKER documented in this encounter Results * CULTURE BLOOD (12/18/2020 12:25 PM TERRA COTTA MOLD MAKER) Culture No growth day 5 SUZANNE 12/23/2020 11:35 AM TERRA COTTA MOLD MAKER [facility] Blood PERIPHERAL BLOOD / Unknown Venipuncture / Unknown 12/18/2020 12:25 PM TERRA COTTA MOLD MAKER 12/18/2020 5:26 PM TERRA COTTA MOLD MAKER Rich Bishop MD LAB - MICROBIOLOGY ORDERABLES Fi nal Result [facility] [address] [place] [address], [facility] [phone] * CULTURE BLOOD (12/18/2020 12:06 PM TERRA COTTA MOLD MAKER) Culture No growth day 5 SUZANNE 12/23/2020 11:35 AM TERRA COTTA MOLD MAKER [facility] Blood PERIPHERAL BLOOD / Unknown Venipuncture / Unknown 12/18/2020 12:06 PM TERRA COTTA MOLD MAKER 12/18/2020 5:26 PM TERRA COTTA MOLD MAKER us Rich Bishop MD LAB - MICROBIOLOGY ORDERABLES Fi nal Result [facility] [address] [place] [address], [facility] [phone] documented in this encounter Visit Diagnoses Not on filedocumented in this encounter
--- OUTSIDE RECORDS SUMMARY | 2024-10-13 20:09 | XMS_ITS | Encounter Summary ---
Author Organization [facility] Address [address] [place] [address] Phone Care Team Providers Care Drug Safety Associate Name Role Phone Marly Crespo MD Primary Care Provider Encounter Details Date Type Department Care Team (Late st Contact Info) Description 02/19/2021 Nursing Facility [facility] [address] [place], [place] [address] [place] [address] Gwen Delong MD [address] [place] [address] Social History Tobacco Use Types Packs/Day Years Used Date Smoking Tobacco: Never Assessed Sex and Gender Information Value Date Recorded Sex Assigned at Not on file Legal Sex Male 8:54 AM PRODUCT SAFETY TEST ENGINEER Gender Identity Not on file Sexual Orientation Not on file documented as of this encounter H&P Notes * Carlos Alberto Rivero - 02/19/2021 11:59 PM CST [facility] History and Physical Chief Complaint: Sepsis HPI: Dandy Carias is a 55 yo male who has transferred to [facility] from [facility] for post-acute care and rehabilitation. 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 He can have limited enteral intake which consists of 2 popsicles and 3 cups of ice per day. EC fistula being managed with wound marketing traffic manager. 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 He presented to the ED for evaluation of a fever. CT abdomen pelvis with contrast redemonstratedchanges of prior hernia repair with large and small bowel anastomoses and double-barrel fistulawithintervalincrease in ventral hernia size with multipleloops of nonobstructed bowel. He was bolused with IV fluids and given empiric cefepime and vancomycin. On 02/03 new tunneled catheter placed for IV abx and TPN. The patient did not have any complaints at the time of this assessment and was eager to return home. Allergies: NKA Past Medical History: Depression, anxiety, adynamic ileus, diverticulosis, fatty liver, GERD, HLD, tobacco dependence Surgical History: Cholecystectomy, colectomy, colonoscopy, exploratory laparotomy, bowel resection,hernia repair, tonsillectomy, tracheostomy Social History: Former smoker. Quit 09/03/20. Started 1981 and smoked 1.50 ppd. Family History: Heart attack, HTN, valvular heart disease in mother. HLD in father. Review of Prior External Notes: Physical Exam: Vital Signs: All vitals were reviewed in the facility EMR and are stable. Exam: General: Well developed, well nourished, in no distress Skin: Normal appearance, normal turgor, no rashes, HEENT: Normocephalic, atraumatic, no flaring Eyes: nonicteric, intact extra occular movement, PERRL Neck: normal, supple, no lymphadenopathy Heart: regular rate and rhythm, S1, S2 normal, no murmur, click, rub or gallop, R subclavian tunneled catheter Lungs: clear to ausculation, normal respirations, normal precautions Abdominal: soft, non-tender; bowel sounds normal; no masses, no organomegaly, EC fistula with secured ostomy bag with minimal drainage : external genitalia normal in appearance Extremities: no deformities, joint mobility appears intact, no clubbing Neuro: Non-focal, CN intact, sensory and motor intact Psychological: alert and oriented X3, appropriate mood and affect, Intact judgement and memory Data Review: Lab Results: Labs from recent hospitalization have been reviewed and are stable. Labs Ordered: No new labs were ordered for this visit. Assessment/Plan: 1. Sepsis without acute organ dysfunction. Antibiotic treatment course with IV cefepime and vancomycin has been completed. 2. Enterocutaneous fistula. Regarding his multiple abdominal surgeries, he had colectomy, ventral hernia with repair, incarceratedincisional abdominal wall hernia, multiple exploratory laparotomies with bowel resections, withopenabdomenand enterocutaneous fistula currently with short gut and TPN dep endency. Continue wound customs compliance manager of EC fistula. Limit PO intake to: 2 popsicles and 3 cups of ice per day. Monitor EC fistula output. Monitor EC fistula output, ensure < 500 cc/day, otherwise cut down on oral intake. 3. Short gut syndrome. Continue Gattex, loperamide, Lomotil, H2 saray, and PPI therapy. TPN was restarted on 02/03/21. Ensure BID. Goal for EC fistula output < 500cc to promote healing 4. Anxiety and Depression. Mood currently stable. Continue trazodone. 5. Anemia. Hgb stable at 8.8 on 02/04/21. Monitor CBC periodically and advise transfusion if Hgb drops below 7.0. 6. Generalized weakness and decreased mobilization. The patient is to receive PT and OT at the SNF to improve strength, balance, and mobility back to baseline. VTE Prophylaxis: Mobilization Disposition: The patient is receive post-acute care and complete PT and OT at the SNF to improve strength, balance, and mobility back to baseline. His goal is to discharge to home where he will remain on TPN. Advance Care Planning: Aggregate [id number] time, greater than 16 minutes was spent discussing end-of-life care planning with patient/family and/or Power of Line Locator. Discussed CPR, Intubation, treatment goals, and Quality of life/Intensity of care. Patient desires CPR-Full Treatment Carlos Alberto Ellis, acting as a scribe, am personally taking down the notes in the presence of Dr. Gwen Delong M.D. Take no action on this note until reviewed and authenticated by the physician. By: CARLOS ALBERTO RIVERO, 02/11/2022, 2:23 PM PRODUCT SAFETY TEST ENGINEER Cosigned by Gwen Delong MD at 02/12/2022 3:17 PM PRODUCT SAFETY TEST ENGINEER UCT SAFETY TEST ENGINEER UCT SAFETY TEST ENGINEER Associated attestation - Gwen Delong MD - 02/12/2022 3:17 PM PRODUCT SAFETY TEST ENGINEER I discussed the physical findings and clinical assessment of the pateint as well as the care plan with Pradip Rivero and reviewed the medical records and notes above and agree with the content and details of the note. documented in this encounter Plan of Treatment Not on file documented as of this encounter Visit Diagnoses Not on filedocumented in this encounter Care Teams Drug Safety Associate Relationship Specialty Start Date End Date Marly Crespo MD PCP - General Family Medicine 05/13/22 documented as of this encounter
--- OUTSIDE RECORDS SUMMARY | 2024-10-13 20:09 | XMS_ITS | Clinical Summary ---
Author Organization [facility] [employer] Address [address] [place] [address] Care Team Providers Care Windows Admin Name Role Phone Unavailable Primary Care Provider Unavailabl e Source Comments [facility] [employer],non-owned Affiliates and Associated Physician Practices is amultiple site organization consisting of ambulatory clinics and hospital sitesin [place], [place], [place] and [place]. This disclosure is being madepursuant to the Care Everywhere program and may not contain all information available regarding this patient. Last updated 17.[facility] [employer] Social History Tobacco Use Types Packs/Day Years Used Date Smoking Tobacco: Never Assessed Sex and Gender Information Value Date Recorded Sex Assigned at Not on file Legal Sex Male 9:55 AM CDT Gender Identity Not on file Sexual Orientation Not on file Plan of Treatment Health Maintenance Due Date Last Done Comments COLOGUARD (AGES 45-75) - COL ON CA SCREENING 1965 COLON MONITORING 1965 COLONOSCOPY - COLON CA SCREENING 1965 CT COLONOGRAPHY - COLON CA SCREENING 1965 Colorectal Cancer Screening 1965 FIT - COLON CA SCREENING 1965 FLEX SIG - COLON CA SCREENING 1965 LIPID TESTING 1965 HIV SCREENING 08/23/1978 HEPATITIS C SCREENING 08/19/1981 DTAP/TDAP/TD VACCINES (1 - Tdap) 08/23/1982 PNEUMOCOCCAL VACCINE 50+ (1 of 1 - PCV) 08/23/2013 ZOSTER VACCINE (1 of 2) 08/23/2013 COVID-19 VACCINE ( - 2023-2 5 season) 2023 DEPRESSION SCREENING 02/08/2024 INFLUENZA VACCINE (#1) 2024 Respiratory Syncytial Virus (RSV) Vaccine Pt: or over 60 yrs (1 - 1-dose 75+ series) 08/23/2038 HEPATITIS B VACCINE Aged Out No longe r eligible based on patient's age to complete this topic HIB VACCINE Aged Out No longer eligi ble based on patient's age to complete this topic HPV VACCINE Aged Out No longer eligi ble based on patient's age to complete this topic MENINGOCOCCAL (Group B) VACC INE SHARED DECISION-MAKING Aged Out No longer eligibl e based on patient's age to complete this topic MENINGOCOCCAL GROUPS A/C/Y/W VACCINE Aged Out No longer eligible b ased on patient's age to complete this topic
--- OUTSIDE RECORDS SUMMARY | 2024-10-13 20:09 | XMS_ITS | Encounter Summary ---
Author Organization [facility] Address [address] [facility] [place] [address] Care Team Providers Care Burnishing Machine Operator Name Role Phone Unavailable Primary Care Provider Unavailabl e Encounter Details Date Type Department Care Team (Late st Contact Info) Description 12/16/2020 Lab Requisition [facility] [address] [place] [address] Rich Bishop MD [address] [place] [address] Social History Tobacco Use Types [...] Procedure Name Priority Date/Time Associated Diagnosis Comments URINALYSIS REFLEX TO MICROSCOPIC NO CULTURE STAT 12/16/2020 3:15 AM LAW CLERK CBC W AUTO DIFFERENTIAL STAT 12/16/2020 3:15 AM LAW CLERK COMPREHENSIVE METABOLIC PANEL STAT 12/16/2020 3:15 AM LAW CLERK documented in this encounter Results * (ABNORMAL) CBC WITH DIFFERENTIAL (12/16/2020 3:15 AM LAW CLERK) WBC 6.7 4.4 - 10.7 x10E9/L 12/16/2020 10:10 AM LAW CLERK [facility] WBC Corrected 12/16/2020 10:10 AM LAW CLERK [facility] RBC 3.41(L) 3.80 - 5.40 x10E12/L 12/16/2020 10:10 AM LAW CLERK [facility] Hemoglobin 9.1(L) 12.0 - 17.6 gm/dL 12/16/2020 10:10 AM [facility] Hematocrit 30.0(L) 35.2 - 51.7 % 12/16/2020 10:10 AM [facility] MCV 88.0 80.7 - 98.3 fl 12/16/2020 10:10 AM [facility] MCH 26.7 26.7 - 34.0 pg 12/16/2020 10:10 AM [facility] MCHC 30.3(L) 30.8 - 35.9 gm/dL 12/16/2020 10:10 AM [facility] Platelet Count 151(L) 153 - 416 x10E9/L 12/16/2020 10:10 AM [facility] RDW-CV 14.2 12.1 - 14.9 % 12/16/2020 10:10 AM [facility] MPV 13.4(H) 9.4 - 12.9 fl 12/16/2020 10:10 AM [facility] Neutrophils % 88.7(H) 44.0 - 73.0 % 12/16/2020 10:10 AM [facility] Lymphocytes % 7.5(L) 20.0 - 43.0 % 12/16/2020 10:10 AM [facility] Monocytes % 3.1(L) 5.0 - 13.0 % 12/16/2020 10:10 AM [facility] Eosinophils % 0.0 0.0 - 6.0 % 12/16/2020 10:10 AM [facility] Basophils % 0.3 0.0 - 2.0 % 12/16/2020 10:10 AM [facility] Immature Granulocytes 0.4 0 - 1 % 12/16/2020 10:10 AM [facility] Neutrophil Absolute 5.91 2.01 - 7.14 x10E9/L 12/16/2020 10:10 AM [facility] Lymphocytes Absolute 0.50(L) 1.07 - 3.94 x10E9/L 12/16/2020 10:10 AM [facility] Monocytes Absolute 0.21(L) 0.26 - 1.07 x10E9/L 12/16/2020 10:10 AM [facility] Eosinophils Absolute 0.00 0 - 0.47 x10E9/L 12/16/2020 10:10 AM [facility] Basophils Absolute 0.02 0 - 0.08 x10E9/L 12/16/2020 10:10 AM [facility] Immature Granulocytes Absolute 0.03 0.00 - 0.06 x10E9/L 12/16/2020 10:10 AM [facility] nRBC Auto 0 /100 WBC 12/16/2020 10:10 AM [facility] Blood BLOOD SPECIMEN / Unknown Venipuncture / Unknown 12/16/2020 3:15 AM LAW CLERK 12/16/2020 9:[address] [facility] us Rich Bishop MD LAB - HEMATOLOGY ORDERABLES Baylee small Result [facility] [address] [place] [address] * URINALYSIS REFLEX TO MICROSCOPIC NO CULTURE (12/16/2020 3:[address] [facility]) Color UA Yellow Straw, Yellow 12/16/2020 10:00 AM [facility] Clarity UA Clear Clear 12/16/2020 10:00 AM [facility] Glucose UA Negative Negative 12/16/2020 10:00 AM [facility] Bilirubin UA Negative Negative 12/16/2020 10:00 AM [facility] Ketone UA Negative Negative 12/16/2020 10:00 AM [facility] Specific [place] UA 1.015 1.005 - 1.030 12/16/2020 10:00 AM [facility] Blood UA Negative Negative 12/16/2020 10:00 AM [facility] pH UA 6.0 5.0 - 8.0 pH 12/16/2020 10:00 AM [facility] Protein UA Negative Negative 12/16/2020 10:00 AM [facility] Urobilinogen UA Negative Negative mg/dL 12/16/2020 10:00 AM [facility] Nitrite UA Negative Negative 12/16/2020 10:00 AM [facility] Leukocyte Esterase UA Negative Negative 12/16/2020 10:00 AM [facility] Urine Microscopy Urine microscopy not indicated 12/16/2020 10:00 AM [facility] Urine URINE SPECIMEN OBTAINED BY CLEAN CATCH PROCEDURE / Unknown Collection / Unknown 12/16/2020 3:15 AM LAW CLERK 12/16/2020 9:[address] [facility] Narrative [facility] - 12/16/2020 10:00 AM LAW CLERK Rich Bishop MD LAB - URINALYSIS ORDERABLES Baylee l Result [facility] [address] [place], [place] [id number] * (ABNORMAL) COMPREHENSIVE METABOLIC PANEL (12/16/2020 3:15 AM LAW CLERK) Glucose 134(H) 70 - 105 mg/dL 12/16/2020 10:24 AM [facility] Sodium 129(L) 136 - 145 mmol/L 12/16/2020 10:24 AM [facility] Potassium 4.8 3.5 - 5.1 mmol/L 12/16/2020 10:24 AM [facility] Chloride 101 98 - 107 mmol/L 12/16/2020 10:24 AM [facility] CO2 16(L) 23 - 31 mmol/L 12/16/2020 10:24 AM [facility] Calcium 8.0(L) 8.4 - 10.4 mg/dL 12/16/2020 10:24 AM [facility] Anion Gap 12 8 - 18 mmol/L 12/16/2020 10:24 AM [facility] BUN 22 8.4 - 25.7 mg/dL 12/16/2020 10:24 AM [facility] Creatinine 1.01 0.72 - 1.25 mg/dL 12/16/2020 10:24 AM [facility] Alkaline Phosphatase 159(H) 40 - 150 U/L 12/16/2020 10:24 AM [facility] ALT 32 0 - 61 U/L 12/16/2020 10:24 AM [facility] AST 56(H) 5 - 34 U/L 12/16/2020 10:24 AM [facility] Protein Total 6.1(L) 6.4 - 8.3 gm/dL 12/16/2020 10:24 AM [facility] Albumin 2.4(L) 3.5 - 5.2 gm/dL 12/16/2020 10:24 AM LAW CLERK [facility] Bilirubin Total 0.5 0.2 - 1.2 mg/dL 12/16/2020 10:24 AM LAW CLERK [facility] eGFR by MDRD >60 >60 mL/min/1.7 3m2 12/16/2020 10:24 AM LAW CLERK [facility] eGFR by MDRD >60 >60 mL/min/1.7 3m2 12/16/2020 10:24 AM LAW CLERK [facility] Blood BLOOD SPECIMEN / Unknown Venipuncture / Unknown 12/16/2020 3:15 AM LAW CLERK 12/16/2020 9:40 AM LAW CLERK Narrative [facility] - 12/16/2020 10:24 AM LAW CLERK Moderate Hemoylsis Rich Bishop MD LAB - CHEMISTRY ORDERABLES Final Result Performing Organization Address City/State/[facility] Co de Phone Number [facility] [address] [place], [place] [phone] documented in this encounter Visit Diagnoses Not on filedocumented in this encounter
--- OUTSIDE RECORDS SUMMARY | 2024-10-13 20:09 | XMS_ITS | Encounter Summary ---
Author Organization [facility] Address [address] [place] [address] Care Team Providers Care Aquatic Physiotherapist Name Role Phone Unavailable Primary Care Provider Unavailabl e Encounter Details Date Type Department Care Team (Late st Contact Info) Description 12/29/2020 Lab Requisition [facility] [address] [place] [address] Kee Roe MD [address] [place] [address] Social History Tobacco Use Types [...] Date/Time Associated Diagnosis Comments ERYTHROCYTE SEDIMENTATION RATE STAT 12/29/2020 3:45 AM DISPATCHER REFINERY CBC W AUTO DIFFERENTIAL Routine 12/29/2020 3:45 AM DISPATCHER REFINERY COMPREHENSIVE METABOLIC PANEL STAT 12/29/2020 3:45 AM DISPATCHER REFINERY PHOSPHORUS BLOOD STAT 12/29/2020 3:45 AM DISPATCHER REFINERY MAGNESIUM BLOOD STAT 12/29/2020 3:45 AM DISPATCHER REFINERY documented in this encounter Results * (ABNORMAL) CBC WITH DIFFERENTIAL (12/29/2020 3:45 AM DISPATCHER REFINERY) WBC 6.5 4.4 - 10.7 x10E9/L 12/29/2020 11:19 AM DISPATCHER REFINERY [facility] WBC Corrected 12/29/2020 11:19 AM DISPATCHER REFINERY [facility] RBC 3.49(L) 3.80 - 5.40 x10E12/L 12/29/2020 11:19 AM [facility] Hemoglobin 8.7(L) 12.0 - 17.6 gm/dL 12/29/2020 11:19 AM [facility] Hematocrit 31.0(L) 35.2 - 51.7 % 12/29/2020 11:19 AM [facility] MCV 88.8 80.7 - 98.3 fl 12/29/2020 11:19 AM [facility] MCH 24.9(L) 26.7 - 34.0 pg 12/29/2020 11:19 AM [facility] MCHC 28.1(L) 30.8 - 35.9 gm/dL 12/29/2020 11:19 AM [facility] Platelet Count 464(H) 153 - 416 x10E9/L 12/29/2020 11:19 AM [facility] RDW-CV 15.3(H) 12.1 - 14.9 % 12/29/2020 11:19 AM [facility] MPV 12.2 9.4 - 12.9 fl 12/29/2020 11:19 AM [facility] Neutrophils % 68.5 44.0 - 73.0 % 12/29/2020 11:19 AM [facility] Lymphocytes % 18.9(L) 20.0 - 43.0 % 12/29/2020 11:19 AM [facility] Monocytes % 10.0 5.0 - 13.0 % 12/29/2020 11:19 AM [facility] Eosinophils % 2.0 0.0 - 6.0 % 12/29/2020 11:19 AM [facility] Basophils % 0.3 0.0 - 2.0 % 12/29/2020 11:19 AM [facility] Immature Granulocytes 0.3 0 - 1 % 12/29/2020 11:19 AM [facility] Neutrophil Absolute 4.43 2.01 - 7.14 x10E9/L 12/29/2020 11:19 AM [facility] Lymphocytes Absolute 1.22 1.07 - 3.94 x10E9/L 12/29/2020 11:19 AM [facility] Monocytes Absolute 0.65 0.26 - 1.07 x10E9/L 12/29/2020 11:19 AM DISPATCHER REFINERY [facility] Eosinophils Absolute 0.13 0 - 0.47 x10E9/L 12/29/2020 11:19 AM DISPATCHER REFINERY [facility] Basophils Absolute 0.02 0 - 0.08 x10E9/L 12/29/2020 11:19 AM DISPATCHER REFINERY [facility] Immature Granulocytes Absolute 0.02 0.00 - 0.06 x10E9/L 12/29/2020 11:19 AM DISPATCHER REFINERY [facility] nRBC Auto 0 /100 WBC 12/29/2020 11:19 AM DISPATCHER REFINERY [facility] Blood BLOOD SPECIMEN / Unknown Venipuncture / Unknown 12/29/2020 3:45 AM DISPATCHER REFINERY 12/29/2020 10:43 AM DISPATCHER REFINERY Kee Roe MD LAB - HEMATOLOGY ORDERABLES Baylee l Result Performing Organization Address City/[facility]/ZIP Co de Phone Number [facility] [address] [place] [id number] * (ABNORMAL) ERYTHROCYTE SEDIMENTATION RATE (12/29/2020 3:45 AM DISPATCHER REFINERY) Erythrocyte Sedimentation Rate Automated 71(H) 0 - 20 MM/HR 12/29/2020 11:18 AM DISPATCHER REFINERY [facility] Blood BLOOD SPECIMEN / Unknown Venipuncture / Unknown 12/29/2020 3:45 AM DISPATCHER REFINERY 12/29/2020 10:43 AM DISPATCHER REFINERY Kee Roe MD LAB - HEMATOLOGY ORDERABLES Baylee l Result [facility] [address] [place] [phone] * (ABNORMAL) PHOSPHORUS BLOOD (12/29/2020 3:45 AM DISPATCHER REFINERY) Phosphorus 6.2(H) 2.3 - 4.7 mg/dL 12/29/2020 11:43 AM DISPATCHER REFINERY [facility] Blood BLOOD SPECIMEN / Unknown Venipuncture / Unknown 12/29/2020 3:45 AM DISPATCHER REFINERY 12/29/2020 10:43 AM DISPATCHER REFINERY us Kee Roe MD LAB - CHEMISTRY ORDERABLES Final Result Performing Organization Address [facility]/ZIP Co de Phone Number [facility] [address] [place], [place] [phone] * MAGNESIUM BLOOD (12/29/2020 3:45 AM DISPATCHER REFINERY) Magnesium 2.1 1.6 - 2.6 mg/dL 12/29/2020 11:43 AM [facility] Blood BLOOD SPECIMEN / Unknown Venipuncture / Unknown 12/29/2020 3:45 AM DISPATCHER REFINERY 12/29/2020 10:43 AM DISPATCHER REFINERY us Kee Roe MD LAB - CHEMISTRY ORDERABLES Final Result Performing Organization Address [facility] de Phone Number [facility] [address] [place] [place] [address] * (ABNORMAL) COMPREHENSIVE METABOLIC PANEL (12/29/2020 3:45 AM DISPATCHER REFINERY) Glucose 91 70 - 105 mg/dL 12/29/2020 11:43 AM [facility] Sodium 137 136 - 145 mmol/L 12/29/2020 11:43 AM [facility] Potassium 5.0 3.5 - 5.1 mmol/L 12/29/2020 11:43 AM [facility] Chloride 101 98 - 107 mmol/L 12/29/2020 11:43 AM [facility] CO2 23 23 - 31 mmol/L 12/29/2020 11:43 AM [facility] Calcium 8.7 8.4 - 10.4 mg/dL 12/29/2020 11:43 AM [facility] Anion Gap 13 8 - 18 mmol/L 12/29/2020 11:43 AM [facility] BUN 13 8.4 - 25.7 mg/dL 12/29/2020 11:43 AM [facility] Creatinine 0.80 0.72 - 1.25 mg/dL 12/29/2020 11:43 AM [facility] Alkaline Phosphatase 242(H) 40 - 150 U/L 12/29/2020 11:43 AM DISPATCHER REFINERY [facility] ALT 12 0 - 61 U/L 12/29/2020 11:43 AM DISPATCHER REFINERY [facility] AST 18 5 - 34 U/L 12/29/2020 11:43 AM DISPATCHER REFINERY [facility] Protein Total 6.9 6.4 - 8.3 gm/dL 12/29/2020 11:43 AM DISPATCHER REFINERY [facility] Albumin 3.0(L) 3.5 - 5.2 gm/dL 12/29/2020 11:43 AM DISPATCHER REFINERY [facility] Bilirubin Total 0.4 0.2 - 1.2 mg/dL 12/29/2020 11:43 AM DISPATCHER REFINERY [facility] eGFR by MDRD >60 >60 mL/min/1.7 3m2 12/29/2020 11:43 AM DISPATCHER REFINERY [facility] eGFR by MDRD >60 >60 mL/min/1.7 3m2 12/29/2020 11:43 AM DISPATCHER REFINERY [facility] Blood BLOOD SPECIMEN / Unknown Venipuncture / Unknown 12/29/2020 3:45 AM DISPATCHER REFINERY 12/29/2020 10:43 AM DISPATCHER REFINERY us Kee Roe MD LAB - CHEMISTRY ORDERABLES Final Result Performing Organization Address City/State/[facility] Co de Phone Number [facility] [address] [place] [address] documented in this encounter Visit Diagnoses Not on filedocumented in this encounter
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
--- OUTSIDE RECORDS SUMMARY | 2024-10-13 20:09 | XMS_ITS | Encounter Summary ---
Author Organization [facility] Address [address] [place] [address] Care Team Providers Care Outside Sales Engineer Name Role Phone Unavailable Primary Care Provider Unavailabl e Encounter Details Date Type Department Care Team (Late st Contact Info) Description 01/13/2021 Lab Requisition [facility] [address] [place] [address] [place] [address] [place] [address] Social History Tobacco Use Types Packs/Day [...] Associated Diagnosis Comments RENAL FUNCTION PANEL STAT 01/13/2021 3:00 AM MAGAZINE EDITOR documented in this encounter Results * (ABNORMAL) RENAL FUNCTION PANEL (01/13/2021 3:00 AM MAGAZINE EDITOR) Glucose 228(H) 70 - 105 mg/dL 01/13/2021 10:35 AM MAGAZINE EDITOR [facility] Sodium 132(L) 136 - 145 mmol/L 01/13/2021 10:35 AM MAGAZINE EDITOR [facility] Potassium 4.9 3.5 - 5.1 mmol/L 01/13/2021 10:35 AM MAGAZINE EDITOR [facility] Chloride 103 98 - 107 mmol/L 01/13/2021 10:35 AM MAGAZINE EDITOR [facility] CO2 19(L) 23 - 31 mmol/L 01/13/2021 10:35 AM MAGAZINE EDITOR [facility] Calcium 9.4 8.4 - 10.4 mg/dL 01/13/2021 10:35 AM MAGAZINE EDITOR [facility] Anion Gap 10 8 - 18 mmol/L 01/13/2021 10:35 AM [facility] BUN 31(H) 8.4 - 25.7 mg/dL 01/13/2021 10:35 AM [facility] Creatinine 0.91 0.72 - 1.25 mg/dL 01/13/2021 10:35 AM [facility] Albumin 3.2(L) 3.5 - 5.2 gm/dL 01/13/2021 10:35 AM [facility] Phosphorus 5.6(H) 2.3 - 4.7 mg/dL 01/13/2021 10:35 AM [facility] eGFR by MDRD >60 >60 mL/min/1.7 3m2 01/13/2021 10:35 AM [facility] eGFR by MDRD >60 >60 mL/min/1.7 3m2 01/13/2021 10:35 AM [facility] Blood BLOOD SPECIMEN / Unknown Venipuncture / Unknown 01/13/2021 3:00 AM MAGAZINE EDITOR 01/13/2021 9:14 AM MAGAZINE EDITOR us Julio Munoz MD LAB - CHEMISTRY ORDERABLES Fi nal Result [facility] [address] [place] [address] documented in this encounter Visit Diagnoses Not on filedocumented in this encounter
--- OUTSIDE RECORDS SUMMARY | 2024-10-13 20:09 | XMS_ITS | Encounter Summary ---
Author Organization [facility] Address [address] [facility] [place] [address] Care Team Providers Care Minister Assistant Name Role Phone Unavailable Primary Care Provider Unavailabl e Encounter Details Date Type Department Care Team (Late st Contact Info) Description 12/15/2020 Lab Requisition [facility] [address] [place] [address] Kee Roe MD [address] [place] [address] Social History Tobacco Use Types [...] Associated Diagnosis Comments ERYTHROCYTE SEDIMENTATION RATE STAT 12/15/2020 3:30 AM TURBINATED BONE GRINDER CBC W AUTO DIFFERENTIAL STAT 12/15/2020 3:30 AM TURBINATED BONE GRINDER COMPREHENSIVE METABOLIC PANEL STAT 12/15/2020 3:30 AM TURBINATED BONE GRINDER PHOSPHORUS BLOOD STAT 12/15/2020 3:30 AM TURBINATED BONE GRINDER MAGNESIUM BLOOD STAT 12/15/2020 3:30 AM TURBINATED BONE GRINDER documented in this encounter Results * (ABNORMAL) CBC WITH DIFFERENTIAL (12/15/2020 3:30 AM TURBINATED BONE GRINDER) WBC 9.1 4.4 - 10.7 x10E9/L 12/15/2020 2:39 PM TURBINATED BONE GRINDER [facility] WBC Corrected 12/15/2020 2:39 PM TURBINATED BONE GRINDER [facility] RBC 3.75(L) 3.80 - 5.40 x10E12/L 12/15/2020 2:[address] [facility] Hemoglobin 9.8(L) 12.0 - 17.6 gm/dL 12/15/2020 2:[address] [facility] Hematocrit 32.8(L) 35.2 - 51.7 % 12/15/2020 2:[address] [facility] MCV 87.5 80.7 - 98.3 fl 12/15/2020 2:[address] [facility] MCH 26.1(L) 26.7 - 34.0 pg 12/15/2020 2:[address] [facility] MCHC 29.9(L) 30.8 - 35.9 gm/dL 12/15/2020 2:[address] [facility] Platelet Count 249 153 - 416 x10E9/L 12/15/2020 2:[address] [facility] RDW-CV 13.9 12.1 - 14.9 % 12/15/2020 2:[address] [facility] MPV 12.9 9.4 - 12.9 fl 12/15/2020 2:[address] [facility] Neutrophils % 90.4(H) 44.0 - 73.0 % 12/15/2020 2:[address] [facility] Lymphocytes % 4.4(L) 20.0 - 43.0 % 12/15/2020 2:[address] [facility] Monocytes % 4.7(L) 5.0 - 13.0 % 12/15/2020 2:[address] [facility] Eosinophils % 0.0 0.0 - 6.0 % 12/15/2020 2:[address] [facility] Basophils % 0.2 0.0 - 2.0 % 12/15/2020 2:[address] [facility] Immature Granulocytes 0.3 0 - 1 % 12/15/2020 2:[address] [facility] Neutrophil Absolute 8.24(H) 2.01 - 7.14 x10E9/L 12/15/2020 2:[address] [facility] Lymphocytes Absolute 0.40(L) 1.07 - 3.94 x10E9/L 12/15/2020 2:[address] [facility] Monocytes Absolute 0.43 0.26 - 1.07 x10E9/L 12/15/2020 2:39 PM TURBINATED BONE GRINDER [facility] Eosinophils Absolute 0.00 0 - 0.47 x10E9/L 12/15/2020 2:39 PM TURBINATED BONE GR[employer]ER [facility] Basophils Absolute 0.02 0 - 0.08 x10E9/L 12/15/2020 2:39 PM TURBINATED BONE GRINDER [facility] Immature Granulocytes Absolute 0.03 0.00 - 0.06 x10E9/L 12/15/2020 2:39 PM TURBINATED BONE GRINDER [facility] nRBC Auto 0 /100 WBC 12/15/2020 2:39 PM TURBINATED BONE GRINDER [facility] Blood BLOOD SPECIMEN / Unknown Venipuncture / Unknown 12/15/2020 3:30 AM TURBINATED BONE GRINDER 12/15/2020 1:57 PM TURBINATED BONE GRINDER Kee Roe MD LAB - HEMATOLOGY ORDERABLES Baylee l Result Performing Organization Address City/[facility]/ZIP Co de Phone Number [facility] [address] [place] [phone] * (ABNORMAL) ERYTHROCYTE SEDIMENTATION RATE (12/15/2020 3:30 AM TURBINATED BONE GRINDER) Erythrocyte Sedimentation Rate Automated 77(H) 0 - 20 MM/HR 12/15/2020 2:18 PM TURBINATED [employer] GR[employer]ER [facility] Blood BLOOD SPECIMEN / Unknown Venipuncture / Unknown 12/15/2020 3:30 AM TURBINATED BONE GRINDER 12/15/2020 1:49 PM TURBINATED BONE GRINDER Kee Roe MD LAB - HEMATOLOGY ORDERABLES Baylee l Result [facility] [address] [place] [phone] * PHOSPHORUS BLOOD (12/15/2020 3:30 AM TURBINATED BONE GRINDER) Phosphorus 2.9 2.3 - 4.7 mg/dL 12/15/2020 2:37 [address] TURBINATED [employer] GR[employer]ER [facility] Blood BLOOD SPECIMEN / Unknown Venipuncture / Unknown 12/15/2020 3:30 AM TURBINATED BONE GRINDER 12/15/2020 1:49 PM TURBINATED BONE GRINDER us Kee Roe MD LAB - CHEMISTRY ORDERABLES Final Result Performing Organization Address [facility]/ZIP Co de Phone Number [facility] [address] [place] [address] [phone] * MAGNESIUM BLOOD (12/15/2020 3:30 AM TURBINATED BONE GRINDER) Magnesium 1.6 1.6 - 2.6 mg/dL 12/15/2020 2:39 [address] TURBINATED [employer]ER [facility] Blood BLOOD SPECIMEN / Unknown Venipuncture / Unknown 12/15/2020 3:30 AM TURBINATED BONE GRINDER 12/15/2020 1:49 PM TURBINATED BONE GRINDER Kee Roe MD LAB - CHEMISTRY ORDERABLES Final Result Performing Organization Address [facility] de Phone Number [facility] [address] [place] [address] [phone] * (ABNORMAL) COMPREHENSIVE METABOLIC PANEL (12/15/2020 3:30 AM TURBINATED BONE GRINDER) Glucose 135(H) 70 - 105 mg/dL 12/15/2020 2:[address] [facility] Sodium 131(L) 136 - 145 mmol/L 12/15/2020 2:[address] [facility] Potassium 4.3 3.5 - 5.1 mmol/L 12/15/2020 2:[address] [facility] Chloride 101 98 - 107 mmol/L 12/15/2020 2:[address] [facility] CO2 16(L) 23 - 31 mmol/L 12/15/2020 2:[address] [facility] Calcium 8.4 8.4 - 10.4 mg/dL 12/15/2020 2:[address] [facility] Anion Gap 14 8 - 18 mmol/L 12/15/2020 2:[address] [facility] BUN 20 8.4 - 25.7 mg/dL 12/15/2020 2:[address] [facility] Creatinine 0.99 0.72 - 1.25 mg/dL 12/15/2020 2:[address] [facility] Alkaline Phosphatase 192(H) 40 - 150 U/L 12/15/2020 2:38 PM TURBINATED BONE GRINDER [facility] ALT 20 0 - 61 U/L 12/15/2020 2:38 PM TURBINATED BONE GRINDER [facility] AST 30 5 - 34 U/L 12/15/2020 2:38 PM TURBINATED BONE GRINDER [facility] Protein Total 6.4 6.4 - 8.3 gm/dL 12/15/2020 2:38 [address] TURBINATED BONE GRINDER [facility] Albumin 2.8(L) 3.5 - 5.2 gm/dL 12/15/2020 2:38 [address] TURBINATED BONE GRINDER [facility] Bilirubin Total 0.4 0.2 - 1.2 mg/dL 12/15/2020 2:38 PM TURBINATED BONE GRINDER [facility] eGFR by MDRD >60 >60 mL/min/1.7 3m2 12/15/2020 2:38 [address] TURBINATED BONE GRINDER [facility] eGFR by MDRD >60 >60 mL/min/1.7 3m2 12/15/2020 2:38 PM TURBINATED BONE GRINDER [facility] Blood BLOOD SPECIMEN / Unknown Venipuncture / Unknown 12/15/2020 3:30 AM TURBINATED BONE GRINDER 12/15/2020 1:49 PM TURBINATED BONE GRINDER us Kee Roe MD LAB - CHEMISTRY ORDERABLES Final Result [facility] [address] [place] [address] documented in this encounter Visit Diagnoses Not on filedocumented in this encounter
--- OUTSIDE RECORDS SUMMARY | 2024-10-13 20:09 | XMS_ITS | Encounter Summary ---
Author Organization [facility] Address [address] [place] [address] Care Team Providers Care Space Scheduler Name Role Phone Unavailable Primary Care Provider Unavailabl e Encounter Details Date Type Department Care Team (Late st Contact Info) Description 12/19/2020 Lab Requisition [facility] [address] [place] [address] Rich Bishop MD [address] [place] [address] Social History Tobacco Use Types [...] Comments CBC W AUTO DIFFERENTIAL STAT 12/19/2020 3:58 AM SAFETY LAMP KEEPER VANCOMYCIN LEVEL TROUGH STAT 12/19/2020 3:58 AM SAFETY LAMP KEEPER documented in this encounter Results * (ABNORMAL) CBC WITH DIFFERENTIAL (12/19/2020 3:58 AM SAFETY LAMP KEEPER) WBC 7.1 4.4 - 10.7 x10E9/L 12/19/2020 2:32 PM SAFETY LAMP KEEPER [facility] WBC Corrected 12/19/2020 2:32 PM SAFETY LAMP KEEPER [facility] RBC 2.98(L) 3.80 - 5.40 x10E12/L 12/19/2020 2:32 PM SAFETY LAMP KEEPER [facility] Hemoglobin 7.8(L) 12.0 - 17.6 gm/dL 12/19/2020 2:32 PM SAFETY LAMP KEEPER [facility] Hematocrit 25.8(L) 35.2 - 51.7 % 12/19/2020 2:32 PM SAFETY LAMP KEEPER [facility] MCV 86.6 80.7 - 98.3 fl 12/19/2020 2:[address] [facility] MCH 26.2(L) 26.7 - 34.0 pg 12/19/2020 2:[address] [facility] MCHC 30.2(L) 30.8 - 35.9 gm/dL 12/19/2020 2:[address] [facility] Platelet Count 143(L) 153 - 416 x10E9/L 12/19/2020 2:[address] [facility] RDW-CV 14.7 12.1 - 14.9 % 12/19/2020 2:[address] [facility] MPV 14.2(H) 9.4 - 12.9 fl 12/19/2020 2:[address] [facility] Neutrophils % 79.3(H) 44.0 - 73.0 % 12/19/2020 2:[address] [facility] Lymphocytes % 12.0(L) 20.0 - 43.0 % 12/19/2020 2:[address] [facility] Monocytes % 7.6 5.0 - 13.0 % 12/19/2020 2:[address] [facility] Eosinophils % 0.6 0.0 - 6.0 % 12/19/2020 2:[address] [facility] Basophils % 0.1 0.0 - 2.0 % 12/19/2020 2:[address] [facility] Immature Granulocytes 0.4 0 - 1 % 12/19/2020 2:[address] [facility] Neutrophil Absolute 5.61 2.01 - 7.14 x10E9/L 12/19/2020 2:[address] [facility] Lymphocytes Absolute 0.85(L) 1.07 - 3.94 x10E9/L 12/19/2020 2:[address] [facility] Monocytes Absolute 0.54 0.26 - 1.07 x10E9/L 12/19/2020 2:[address] [facility] Eosinophils Absolute 0.04 0 - 0.47 x10E9/L 12/19/2020 2:[address] [facility] Basophils Absolute 0.01 0 - 0.08 x10E9/L 12/19/2020 2:32 PM SAFETY LAMP KEEPER [facility] Immature Granulocytes Absolute 0.03 0.00 - 0.06 x10E9/L 12/19/2020 2:32 PM SAFETY LAMP KEEPER [facility] nRBC Auto 0 /100 WBC 12/19/2020 2:32 PM SAFETY LAMP KEEPER [facility] Blood BLOOD SPECIMEN / Unknown Venipuncture / Unknown 12/19/2020 3:58 AM SAFETY LAMP KEEPER 12/19/2020 1:58 PM SAFETY LAMP KEEPER us Rich Bishop MD LAB - HEMATOLOGY ORDERABLES Baylee l Result Performing Organization Address City/[facility]/ZIP Co de Phone Number [facility] [address] [place] [phone] * VANCOMYCIN LEVEL TROUGH (12/19/2020 3:58 AM SAFETY LAMP KEEPER) [facility] Vancomycin Trough 18.5 10.0 - 20.0 ug/mL 12/19/2020 2:48 PM SAFETY LAMP KEEPER [facility] Blood BLOOD SPECIMEN / Unknown Venipuncture / Unknown 12/19/2020 3:58 AM SAFETY LAMP KEEPER 12/19/2020 1:58 PM SAFETY LAMP KEEPER Rich Bishop MD LAB - CHEMISTRY ORDERABLES Final Result Performing Organization Address [facility]/ZIP Co de Phone Number [facility] [address] [place] [phone] documented in this encounter Visit Diagnoses Not on filedocumented in this encounter
--- OUTSIDE RECORDS SUMMARY | 2024-10-13 20:09 | XMS_ITS | Encounter Summary ---
Author Organization [facility] Address [address] [place] [address] Care Team Providers Care Head Of Conservation Name Role Phone Unavailable Primary Care Provider Unavailabl e Encounter Details Date Type Department Care Team (Late st Contact Info) Description 12/17/2020 Lab Requisition [facility] [address] [place] [address] Rich Bishop MD [address] [place] [address] Social History Tobacco Use Types [...] Associated Diagnosis Comments VANCOMYCIN LEVEL TROUGH STAT 12/17/2020 3:30 AM BUSINESS OBJECTS DEVELOPER documented in this encounter Results * VANCOMYCIN LEVEL TROUGH (12/17/2020 3:30 AM BUSINESS OBJECTS DEVELOPER) Vancomycin Trough 13.3 10.0 - 20.0 ug/mL 12/17/2020 9:52 AM BUSINESS OBJECTS DEVELOPER [facility] Blood BLOOD SPECIMEN / Unknown Venipuncture / Unknown 12/17/2020 3:30 AM BUSINESS OBJECTS DEVELOPER 12/17/2020 9:18 AM BUSINESS OBJECTS DEVELOPER us Rich Bishop MD LAB - CHEMISTRY ORDERABLES Final Result [facility] [address] [place] [address] documented in this encounter Visit Diagnoses Not on filedocumented in this encounter
--- OUTSIDE RECORDS SUMMARY | 2024-10-13 20:09 | XMS_ITS | Encounter Summary ---
Author Organization [facility] Address [address] [place] [address] Care Team Providers Care Web Applications Architect Name Role Phone Unavailable Primary Care Provider Unavailabl e Encounter Details Date Type Department Care Team (Late st Contact Info) Description 01/05/2021 Lab Requisition [facility] [address] [place] [address] Kee Roe MD [address] [place] [address] Social History Tobacco Use Types [...] Diagnosis Comments CBC W AUTO DIFFERENTIAL STAT 01/05/2021 3:00 AM INDEPENDENT LIVING SPECIALIST COMPREHENSIVE METABOLIC PANEL STAT 01/05/2021 3:00 AM INDEPENDENT LIVING SPECIALIST documented in this encounter Results * (ABNORMAL) CBC WITH DIFFERENTIAL (01/05/2021 3:00 AM INDEPENDENT LIVING SPECIALIST) WBC 5.8 4.4 - 10.7 x10E9/L 01/05/2021 10:48 AM INDEPENDENT LIVING SPECIALIST [facility] WBC Corrected 01/05/2021 10:48 AM INDEPENDENT LIVING SPECIALIST [facility] RBC 4.06 3.80 - 5.40 x10E12/L 01/05/2021 10:48 AM INDEPENDENT LIVING SPECIALIST [facility] Hemoglobin 9.9(L) 12.0 - 17.6 gm/dL 01/05/2021 10:48 AM INDEPENDENT LIVING SPECIALIST [facility] Hematocrit 34.9(L) 35.2 - 51.7 % 01/05/2021 10:48 AM INDEPENDENT LIVING SPECIALIST [facility] MCV 86.0 80.7 - 98.3 fl 01/05/2021 10:48 AM [facility] MCH 24.4(L) 26.7 - 34.0 pg 01/05/2021 10:48 AM [facility] MCHC 28.4(L) 30.8 - 35.9 gm/dL 01/05/2021 10:48 AM [facility] Platelet Count 433(H) 153 - 416 x10E9/L 01/05/2021 10:48 AM [facility] RDW-CV 14.4 12.1 - 14.9 % 01/05/2021 10:48 AM [facility] MPV 12.1 9.4 - 12.9 fl 01/05/2021 10:48 AM [facility] Neutrophils % 58.9 44.0 - 73.0 % 01/05/2021 10:48 AM [facility] Lymphocytes % 27.3 20.0 - 43.0 % 01/05/2021 10:48 AM [facility] Monocytes % 9.6 5.0 - 13.0 % 01/05/2021 10:48 AM [facility] Eosinophils % 3.4 0.0 - 6.0 % 01/05/2021 10:48 AM [facility] Basophils % 0.5 0.0 - 2.0 % 01/05/2021 10:48 AM [facility] Immature Granulocytes 0.3 0 - 1 % 01/05/2021 10:48 AM [facility] Neutrophil Absolute 3.42 2.01 - 7.14 x10E9/L 01/05/2021 10:48 AM [facility] Lymphocytes Absolute 1.59 1.07 - 3.94 x10E9/L 01/05/2021 10:48 AM [facility] Monocytes Absolute 0.56 0.26 - 1.07 x10E9/L 01/05/2021 10:48 AM [facility] Eosinophils Absolute 0.20 0 - 0.47 x10E9/L 01/05/2021 10:48 AM [facility] Basophils Absolute 0.03 0 - 0.08 x10E9/L 01/05/2021 10:48 AM [facility] Immature Granulocytes Absolute 0.02 0.00 - 0.06 x10E9/L 01/05/2021 10:48 AM [facility] nRBC Auto 0 /100 WBC 01/05/2021 10:48 AM [facility] Blood BLOOD SPECIMEN / Unknown Venipuncture / Unknown 01/05/2021 3:00 AM INDEPENDENT LIVING SPECIALIST 01/05/2021 9:[address] [facility] us Kee Roe MD LAB - HEMATOLOGY ORDERABLES Baylee small Result [facility] [address] [place] [address] * (ABNORMAL) COMPREHENSIVE METABOLIC PANEL (01/05/2021 3:[address] [facility]) Glucose 75 70 - 105 mg/dL 01/05/2021 10:53 AM [facility] Sodium 136 136 - 145 mmol/L 01/05/2021 10:53 AM [facility] Potassium 4.9 3.5 - 5.1 mmol/L 01/05/2021 10:53 AM [facility] Chloride 102 98 - 107 mmol/L 01/05/2021 10:53 AM [facility] CO2 22(L) 23 - 31 mmol/L 01/05/2021 10:53 AM [facility] Calcium 9.5 8.4 - 10.4 mg/dL 01/05/2021 10:53 AM [facility] Anion Gap 12 8 - 18 mmol/L 01/05/2021 10:53 AM [facility] BUN 21 8.4 - 25.7 mg/dL 01/05/2021 10:53 AM [facility] Creatinine 0.79 0.72 - 1.25 mg/dL 01/05/2021 10:53 AM [facility] Alkaline Phosphatase 209(H) 40 - 150 U/L 01/05/2021 10:53 AM [facility] ALT 20 0 - 61 U/L 01/05/2021 10:53 AM [facility] AST 20 5 - 34 U/L 01/05/2021 10:53 AM [facility] Protein Total 7.5 6.4 - 8.3 gm/dL 01/05/2021 10:53 AM INDEPENDENT LIVING SPECIALIST [facility] Albumin 3.4(L) 3.5 - 5.2 gm/dL 01/05/2021 10:53 AM INDEPENDENT LIVING SPECIALIST [facility] Bilirubin Total 0.3 0.2 - 1.2 mg/dL 01/05/2021 10:53 AM INDEPENDENT LIVING SPECIALIST [facility] eGFR by MDRD >60 >60 mL/min/1.7 3m2 01/05/2021 10:53 AM INDEPENDENT LIVING SPECIALIST [facility] eGFR by MDRD >60 >60 mL/min/1.7 3m2 01/05/2021 10:53 AM INDEPENDENT LIVING SPECIALIST [facility] Blood BLOOD SPECIMEN / Unknown Venipuncture / Unknown 01/05/2021 3:00 AM INDEPENDENT LIVING SPECIALIST 01/05/2021 9:44 AM INDEPENDENT LIVING SPECIALIST Kee Roe MD LAB - CHEMISTRY ORDERABLES Final Result Performing Organization Address City/State/[facility] Co de Phone Number [facility] [address] [place], [place] [phone] documented in this encounter Visit Diagnoses Not on filedocumented in this encounter
--- OUTSIDE RECORDS SUMMARY | 2024-10-13 20:09 | XMS_ITS | Encounter Summary ---
Author Organization [facility] Address [address] [place] [address] Care Team Providers Care Spooler Operator Automatic Name Role Phone Unavailable Primary Care Provider Unavailabl e Encounter Details Date Type Department Care Team (Late st Contact Info) Description 01/01/2021 Lab Requisition [facility] [address] [place] [address] Kee Roe MD [address] [place] [address] Social History Tobacco Use Types [...] Diagnosis Comments CBC W AUTO DIFFERENTIAL STAT 01/01/2021 4:00 AM [employer] TRIGLYCERIDES BLOOD STAT 01/01/2021 4 :00 AM [employer] COMPREHENSIVE METABOLIC PANEL STAT 01/01/2021 4:00 AM [employer] PHOSPHORUS BLOOD STAT 01/01/2021 4:00 AM [employer] documented in this encounter Results * (ABNORMAL) CBC WITH DIFFERENTIAL (01/01/2021 4:00 AM [employer]) WBC 5.5 4.4 - 10.7 x10E9/L 01/01/2021 12:14 PM [employer] [facility] WBC Corrected 01/01/2021 12:14 PM [employer] [facility] RBC 3.74(L) 3.80 - 5.40 x10E12/L 01/01/2021 12:14 PM [employer] [facility] Hemoglobin 9.3(L) 12.0 - 17.6 gm/dL 01/01/2021 12:14 PM [facility] Hematocrit 32.7(L) 35.2 - 51.7 % 01/01/2021 12:14 PM [facility] MCV 87.4 80.7 - 98.3 fl 01/01/2021 12:14 PM [facility] MCH 24.9(L) 26.7 - 34.0 pg 01/01/2021 12:14 PM [facility] MCHC 28.4(L) 30.8 - 35.9 gm/dL 01/01/2021 12:14 PM [facility] Platelet Count 462(H) 153 - 416 x10E9/L 01/01/2021 12:14 PM [facility] RDW-CV 15.0(H) 12.1 - 14.9 % 01/01/2021 12:14 PM [facility] MPV 12.0 9.4 - 12.9 fl 01/01/2021 12:14 PM [facility] Neutrophils % 63.8 44.0 - 73.0 % 01/01/2021 12:14 PM [facility] Lymphocytes % 21.6 20.0 - 43.0 % 01/01/2021 12:14 PM [facility] Monocytes % 9.9 5.0 - 13.0 % 01/01/2021 12:14 PM [facility] Eosinophils % 3.8 0.0 - 6.0 % 01/01/2021 12:14 PM [facility] Basophils % 0.5 0.0 - 2.0 % 01/01/2021 12:14 PM [facility] Immature Granulocytes 0.4 0 - 1 % 01/01/2021 12:14 PM [facility] Neutrophil Absolute 3.49 2.01 - 7.14 x10E9/L 01/01/2021 12:14 PM [facility] Lymphocytes Absolute 1.18 1.07 - 3.94 x10E9/L 01/01/2021 12:14 PM [facility] Monocytes Absolute 0.54 0.26 - 1.07 x10E9/L 01/01/2021 12:14 PM [facility] Eosinophils Absolute 0.21 0 - 0.47 x10E9/L 01/01/2021 12:14 PM [employer] [facility] Basophils Absolute 0.03 0 - 0.08 x10E9/L 01/01/2021 12:14 PM [employer] [facility] Immature Granulocytes Absolute 0.02 0.00 - 0.06 x10E9/L 01/01/2021 12:14 PM [employer] [facility] nRBC Auto 0 /100 WBC 01/01/2021 12:14 PM [employer] [facility] Blood BLOOD SPECIMEN / Unknown Venipuncture / Unknown 01/01/2021 4:00 AM [employer]IC 01/01/2021 12:01 PM [employer] us Kee Roe MD LAB - HEMATOLOGY ORDERABLES Baylee l Result [facility] [address] [place] [address] [phone] * (ABNORMAL) TRIGLYCERIDES BLOOD (01/01/2021 4:00 AM [employer]IC) Triglycerides 158(H) <150 mg/dL 01/01/2021 12:38 PM [employer] [facility] Blood BLOOD SPECIMEN / Unknown Venipuncture / Unknown 01/01/2021 4:00 AM [employer]IC 01/01/2021 12:01 PM [employer] us Kee Roe MD LAB - CHEMISTRY ORDERABLES Final Result Performing Organization Address City/[facility]/ZIP Co de Phone Number [facility] [address] [place] [phone] * (ABNORMAL) PHOSPHORUS BLOOD (01/01/2021 4:00 AM [employer]) Phosphorus 5.8(H) 2.3 - 4.7 mg/dL 01/01/2021 12:38 PM [employer] [facility] Blood BLOOD SPECIMEN / Unknown Venipuncture / Unknown 01/01/2021 4:00 AM [employer]IC 01/01/2021 12:01 PM [employer] us Kee Roe MD LAB - CHEMISTRY ORDERABLES Final Result [facility] [address] [place] [address] * (ABNORMAL) COMPREHENSIVE METABOLIC PANEL (01/01/2021 4:00 AM [facility]) Glucose 96 70 - 105 mg/dL 01/01/2021 12:38 PM [facility] Sodium 135(L) 136 - 145 mmol/L 01/01/2021 12:38 PM [facility] Potassium 5.1 3.5 - 5.1 mmol/L 01/01/2021 12:38 PM [facility] Chloride 100 98 - 107 mmol/L 01/01/2021 12:38 PM [facility] CO2 21(L) 23 - 31 mmol/L 01/01/2021 12:38 PM [facility] Calcium 9.2 8.4 - 10.4 mg/dL 01/01/2021 12:38 PM [facility] Anion Gap 14 8 - 18 mmol/L 01/01/2021 12:38 PM [facility] BUN 18 8.4 - 25.7 mg/dL 01/01/2021 12:38 PM [facility] Creatinine 0.85 0.72 - 1.25 mg/dL 01/01/2021 12:38 PM [facility] Alkaline Phosphatase 265(H) 40 - 150 U/L 01/01/2021 12:38 PM [facility] ALT 16 0 - 61 U/L 01/01/2021 12:38 PM [facility] AST 22 5 - 34 U/L 01/01/2021 12:38 PM [facility] Protein Total 7.3 6.4 - 8.3 gm/dL 01/01/2021 12:38 PM [facility] Albumin 3.2(L) 3.5 - 5.2 gm/dL 01/01/2021 12:38 PM [facility] Bilirubin Total 0.3 0.2 - 1.2 mg/dL 01/01/2021 12:38 PM [facility] eGFR by MDRD >60 >60 mL/min/1.7 3m2 01/01/2021 12:38 PM [facility] eGFR by MDRD >60 >60 mL/min/1.7 3m2 01/01/2021 12:38 PM [employer] [facility] Blood BLOOD SPECIMEN / Unknown Venipuncture / Unknown 01/01/2021 4:00 AM [employer]IC 01/01/2021 12:01 PM [employer] us Kee Roe MD LAB - CHEMISTRY ORDERABLES Final Result Performing Organization Address City/State/[facility] Co de Phone Number [facility] [address] [place], [place] [phone] documented in this encounter Visit Diagnoses Not on filedocumented in this encounter
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
--- OUTSIDE RECORDS SUMMARY | 2024-10-13 20:09 | XMS_ITS | Encounter Summary ---
Author Organization [facility] Address [address] [place] [address] Care Team Providers Care Operator Coating Furnace Name Role Phone Unavailable Primary Care Provider Unavailabl e Encounter Details Date Type Department Care Team (Late st Contact Info) Description 12/08/2020 Lab Requisition [facility] [address] [place] [address] Kee Roe MD [address] [place] [address] Social History Tobacco Use Types [...] Diagnosis Comments CBC W AUTO DIFFERENTIAL STAT 12/08/2020 4:30 AM CDT COMPREHENSIVE METABOLIC PANEL STAT 12/08/2020 4:30 AM CDT PHOSPHORUS BLOOD STAT 12/08/2020 4:30 AM CDT MAGNESIUM BLOOD STAT 12/08/2020 4:30 AM CDT documented in this encounter Results * (ABNORMAL) PHOSPHORUS BLOOD (12/08/2020 4:30 AM CDT) Phosphorus 5.3(H) 2.3 - 4.7 mg/dL 12/08/2020 1:02 PM CDT [facility] Blood BLOOD SPECIMEN / Unknown Venipuncture / Unknown 12/08/2020 4:30 AM CDT 12/08/2020 12:21 PM CDT us Kee Roe MD LAB - CHEMISTRY ORDERABLES Final Result Performing Organization Address City/[facility]/ZIP Co de Phone Number [facility] [address] [place], [place] [phone] * MAGNESIUM BLOOD (12/08/2020 4:30 AM CDT) Magnesium 1.9 1.6 - 2.6 mg/dL 12/08/2020 1:02 PM CDT [facility] Blood BLOOD SPECIMEN / Unknown Venipuncture / Unknown 12/08/2020 4:30 AM CDT 12/08/2020 12:21 PM CDT us Kee Roe MD LAB - CHEMISTRY ORDERABLES Final Result Performing Organization Address [facility] Co de Phone Number [facility] [address] [place] [phone] * (ABNORMAL) CBC WITH DIFFERENTIAL (12/08/2020 4:30 AM CDT) Pathologist [facility] WBC 6.2 4.4 - 10.7 x10E9/L 12/08/2020 12:48 PM CDT [facility] WBC Corrected 12/08/2020 12:48 PM CDT [facility] RBC 3.61(L) 3.80 - 5.40 x10E12/L 12/08/2020 12:48 PM CDT [facility] Hemoglobin 9.7(L) 12.0 - 17.6 gm/dL 12/08/2020 12:48 PM CDT [facility] Hematocrit 32.8(L) 35.2 - 51.7 % 12/08/2020 12:48 PM CDT [facility] MCV 90.9 80.7 - 98.3 fl 12/08/2020 12:48 PM CDT [facility] MCH 26.9 26.7 - 34.0 pg 12/08/2020 12:48 PM CDT [facility] MCHC 29.6(L) 30.8 - 35.9 gm/dL 12/08/2020 12:48 PM CDT [facility] Platelet Count 327 153 - 416 x10E9/L 12/08/2020 12:48 PM CDT [facility] RDW-CV 13.9 12.1 - 14.9 % 12/08/2020 12:48 PM CDT [facility] MPV 13.0(H) 9.4 - 12.9 fl 12/08/2020 12:48 PM CDT [facility] Neutrophils % 60.8 44.0 - 73.0 % 12/08/2020 12:48 PM CDT [facility] Lymphocytes % 23.1 20.0 - 43.0 % 12/08/2020 12:48 PM CDT [facility] Monocytes % 10.4 5.0 - 13.0 % 12/08/2020 12:48 PM CDT [facility] Eosinophils % 5.2 0.0 - 6.0 % 12/08/2020 12:48 PM CDT [facility] Basophils % 0.3 0.0 - 2.0 % 12/08/2020 12:48 PM CDT [facility] Immature Granulocytes 0.2 0 - 1 % 12/08/2020 12:48 PM CDT [facility] Neutrophil Absolute 3.74 2.01 - 7.14 x10E9/L 12/08/2020 12:48 PM CDT [facility] Lymphocytes Absolute 1.42 1.07 - 3.94 x10E9/L 12/08/2020 12:48 PM CDT [facility] Monocytes Absolute 0.64 0.26 - 1.07 x10E9/L 12/08/2020 12:48 PM CDT [facility] Eosinophils Absolute 0.32 0 - 0.47 x10E9/L 12/08/2020 12:48 PM CDT [facility] Basophils Absolute 0.02 0 - 0.08 x10E9/L 12/08/2020 12:48 PM CDT [facility] Immature Granulocytes Absolute 0.01 0.00 - 0.06 x10E9/L 12/08/2020 12:48 PM CDT [facility] nRBC Auto 0 /100 WBC 12/08/2020 12:48 PM CDT [facility] Blood BLOOD SPECIMEN / Unknown Venipuncture / Unknown 12/08/2020 4:30 AM CDT 12/08/2020 12:21 PM CDT us Kee Roe MD LAB - HEMATOLOGY ORDERABLES Baylee small Result [facility] [address] [place] [address] * (ABNORMAL) COMPREHENSIVE METABOLIC PANEL (12/08/2020 4:30 AM CDT) Glucose 94 70 - 105 mg/dL 12/08/2020 1:02 PM CDT [facility] Sodium 133(L) 136 - 145 mmol/L 12/08/2020 1:02 PM CDT [facility] Potassium 4.5 3.5 - 5.1 mmol/L 12/08/2020 1:02 PM CDT [facility] Chloride 100 98 - 107 mmol/L 12/08/2020 1:02 PM CDT [facility] CO2 21(L) 23 - 31 mmol/L 12/08/2020 1:02 PM CDT [facility] Calcium 9.5 8.4 - 10.4 mg/dL 12/08/2020 1:02 PM CDT [facility] Anion Gap 12 8 - 18 mmol/L 12/08/2020 1:02 PM CDT [facility] BUN 19 8.4 - 25.7 mg/dL 12/08/2020 1:02 PM CDT [facility] Creatinine 0.89 0.72 - 1.25 mg/dL 12/08/2020 1:02 PM CDT [facility] Alkaline Phosphatase 222(H) 40 - 150 U/L 12/08/2020 1:02 PM CDT [facility] ALT 23 0 - 61 U/L 12/08/2020 1:02 PM CDT [facility] AST 22 5 - 34 U/L 12/08/2020 1:02 PM CDT [facility] Protein Total 6.6 6.4 - 8.3 gm/dL 12/08/2020 1:02 PM CDT [facility] Albumin 3.0(L) 3.5 - 5.2 gm/dL 12/08/2020 1:02 PM CDT [facility] Bilirubin Total 0.3 0.2 - 1.2 mg/dL 12/08/2020 1:02 PM CDT [facility] eGFR by MDRD >60 >60 mL/min/1.7 3m2 12/08/2020 1:02 PM CDT [facility] eGFR by MDRD >60 >60 mL/min/1.7 3m2 12/08/2020 1:02 PM CDT [facility] Blood BLOOD SPECIMEN / Unknown Venipuncture / Unknown 12/08/2020 4:30 AM CDT 12/08/2020 12:21 PM CDT us Kee Roe MD LAB - CHEMISTRY ORDERABLES Final Result [facility] [address] [place] [address] documented in this encounter Visit Diagnoses Not on filedocumented in this encounter
--- OUTSIDE RECORDS SUMMARY | 2024-10-13 20:09 | XMS_ITS | Encounter Summary ---
Author Organization [facility] Address [address] [facility] [place] [address] Care Team Providers Care Clinical Administrator Name Role Phone Unavailable Primary Care Provider Unavailabl e Encounter Details Date Type Department Care Team (Late st Contact Info) Description 12/11/2020 Lab Requisition [facility] [address] [place] [address] [place] [address] [place] [address] Social History Tobacco Use Types Packs/Day Years [...] Diagnosis Comments CBC W AUTO DIFFERENTIAL STAT 12/11/2020 3:40 AM CDT TRIGLYCERIDES BLOOD STAT 12/11/2020 3 :40 AM CDT COMPREHENSIVE METABOLIC PANEL STAT 12/11/2020 3:40 AM CDT PHOSPHORUS BLOOD STAT 12/11/2020 3:40 AM CDT documented in this encounter Results * (ABNORMAL) CBC WITH DIFFERENTIAL (12/11/2020 3:40 AM CDT) WBC 5.6 4.4 - 10.7 x10E9/L 12/11/2020 2:52 PM CDT [facility] WBC Corrected 12/11/2020 2:52 PM CDT [facility] RBC 3.53(L) 3.80 - 5.40 x10E12/L 12/11/2020 2:52 PM CDT [facility] Hemoglobin 9.5(L) 12.0 - 17.6 gm/dL 12/11/2020 2:52 PM CDT [facility] Hematocrit 32.4(L) 35.2 - 51.7 % 12/11/2020 2:52 PM CDT [facility] MCV 91.8 80.7 - 98.3 fl 12/11/2020 2:52 PM CDT [facility] MCH 26.9 26.7 - 34.0 pg 12/11/2020 2:52 PM CDT [facility] MCHC 29.3(L) 30.8 - 35.9 gm/dL 12/11/2020 2:52 PM CDT [facility] Platelet Count 306 153 - 416 x10E9/L 12/11/2020 2:52 PM CDT [facility] RDW-CV 13.8 12.1 - 14.9 % 12/11/2020 2:52 PM CDT [facility] MPV 12.9 9.4 - 12.9 fl 12/11/2020 2:52 PM CDT [facility] Neutrophils % 62.2 44.0 - 73.0 % 12/11/2020 2:52 PM CDT [facility] Lymphocytes % 21.5 20.0 - 43.0 % 12/11/2020 2:52 PM CDT [facility] Monocytes % 9.2 5.0 - 13.0 % 12/11/2020 2:52 PM CDT [facility] Eosinophils % 6.2(H) 0.0 - 6.0 % 12/11/2020 2:52 PM CDT [facility] Basophils % 0.5 0.0 - 2.0 % 12/11/2020 2:52 PM CDT [facility] Immature Granulocytes 0.4 0 - 1 % 12/11/2020 2:52 PM CDT [facility] Neutrophil Absolute 3.51 2.01 - 7.14 x10E9/L 12/11/2020 2:52 PM CDT [facility] Lymphocytes Absolute 1.21 1.07 - 3.94 x10E9/L 12/11/2020 2:52 PM CDT [facility] Monocytes Absolute 0.52 0.26 - 1.07 x10E9/L 12/11/2020 2:52 PM CDT [facility] Eosinophils Absolute 0.35 0 - 0.47 x10E9/L 12/11/2020 2:52 PM CDT [facility] Basophils Absolute 0.03 0 - 0.08 x10E9/L 12/11/2020 2:52 PM CDT [facility] Immature Granulocytes Absolute 0.02 0.00 - 0.06 x10E9/L 12/11/2020 2:52 PM CDT [facility] nRBC Auto 0 /100 WBC 12/11/2020 2:52 PM CDT [facility] Blood BLOOD SPECIMEN / Unknown Venipuncture / Unknown 12/11/2020 3:40 AM CDT 12/11/2020 2:37 PM CDT us Kwame Arana MD LAB - HEMATOLOGY ORDERABLES Baylee l Result Performing Organization Address [facility] Co de Phone Number [facility] [address] [place], [place] [phone] * (ABNORMAL) TRIGLYCERIDES BLOOD (12/11/2020 3:40 AM CDT) Triglycerides 174(H) <150 mg/dL 12/11/2020 3:20 PM CDT [facility] Blood BLOOD SPECIMEN / Unknown Venipuncture / Unknown 12/11/2020 3:40 AM CDT 12/11/2020 2:37 PM CDT us Kwame Arana MD LAB - CHEMISTRY ORDERABLES Final Result Performing Organization Address City/[facility] Co de Phone Number [address] [phone] * (ABNORMAL) PHOSPHORUS BLOOD (12/11/2020 3:40 AM CDT) Phosphorus 5.3(H) 2.3 - 4.7 mg/dL 12/11/2020 3:20 PM CDT [facility] Blood BLOOD SPECIMEN / Unknown Venipuncture / Unknown 12/11/2020 3:40 AM CDT 12/11/2020 2:37 PM CDT us Kwame Arana MD LAB - CHEMISTRY ORDERABLES Final Result [facility] [address] [place], [place] [id number] * (ABNORMAL) COMPREHENSIVE METABOLIC PANEL (12/11/2020 3:40 AM CDT) Glucose 306(H) 70 - 105 mg/dL 12/11/2020 3:20 PM CDT [facility] Sodium 134(L) 136 - 145 mmol/L 12/11/2020 3:20 PM CDT [facility] Potassium 4.2 3.5 - 5.1 mmol/L 12/11/2020 3:20 PM CDT [facility] Chloride 100 98 - 107 mmol/L 12/11/2020 3:20 PM CDT [facility] CO2 23 23 - 31 mmol/L 12/11/2020 3:20 PM CDT [facility] Calcium 9.1 8.4 - 10.4 mg/dL 12/11/2020 3:20 PM CDT [facility] Anion Gap 11 8 - 18 mmol/L 12/11/2020 3:20 PM CDT [facility] BUN 19 8.4 - 25.7 mg/dL 12/11/2020 3:20 PM CDT [facility] Creatinine 0.99 0.72 - 1.25 mg/dL 12/11/2020 3:20 PM CDT [facility] Alkaline Phosphatase 191(H) 40 - 150 U/L 12/11/2020 3:20 PM CDT [facility] ALT 20 0 - 61 U/L 12/11/2020 3:20 PM CDT [facility] AST 17 5 - 34 U/L 12/11/2020 3:20 PM CDT [facility] Protein Total 6.3(L) 6.4 - 8.3 gm/dL 12/11/2020 3:20 PM CDT [facility] Albumin 3.0(L) 3.5 - 5.2 gm/dL 12/11/2020 3:20 PM CDT [facility] Bilirubin Total 0.1(L) 0.2 - 1.2 mg/dL 12/11/2020 3:20 PM CDT [facility] eGFR by MDRD >60 >60 mL/min/1.7 3m2 12/11/2020 3:20 PM CDT [facility] eGFR by MDRD >60 >60 mL/min/1.7 3m2 12/11/2020 3:20 PM CDT [facility] Blood BLOOD SPECIMEN / Unknown Venipuncture / Unknown 12/11/2020 3:40 AM CDT 12/11/2020 2:37 PM CDT us Kwame Arana MD LAB - CHEMISTRY ORDERABLES Final Result [facility] [address] [place] [address] documented in this encounter Visit Diagnoses Not on filedocumented in this encounter
--- OUTSIDE RECORDS SUMMARY | 2024-10-13 20:09 | XMS_ITS | Encounter Summary ---
Author Organization [facility] Address [address] [place] [address] Care Team Providers Care Radio Technician Name Role Phone Unavailable Primary Care Provider Unavailabl e Encounter Details Date Type Department Care Team (Late st Contact Info) Description 12/22/2020 Lab Requisition [facility] [address] [place] [address] Kee Roe MD [address] [place] [address] Social History Tobacco Use Types [...] Procedure Name Priority Date/Time Associated Diagnosis Comments DIFFERENTIAL MANUAL Routine 12/22/2020 4 :00 AM AUDIO VISUAL COORDINATOR CBC W AUTO DIFFERENTIAL STAT 12/22/2020 4:00 AM AUDIO VISUAL COORDINATOR COMPREHENSIVE METABOLIC PANEL STAT 12/22/2020 4:00 AM AUDIO VISUAL COORDINATOR PHOSPHORUS BLOOD STAT 12/22/2020 4:00 AM AUDIO VISUAL COORDINATOR MAGNESIUM BLOOD STAT 12/22/2020 4:00 AM AUDIO VISUAL COORDINATOR VANCOMYCIN LEVEL TROUGH STAT 12/22/2020 4:00 AM AUDIO VISUAL COORDINATOR documented in this encounter Results * (ABNORMAL) DIFFERENTIAL MANUAL (12/22/2020 4:00 AM AUDIO VISUAL COORDINATOR) WBC Auto 7.5 x10E9/L 12/22/2020 1:37 PM AUDIO VISUAL COORDINATOR [facility] WBC Corrected 12/22/2020 1:37 PM [facility] nRBC 12/22/2020 1:37 PM [facility] Neutrophil % Manual 80(H) 44 - 73 % 12/22/2020 1:37 PM [facility] Lymphocytes % Manual 9(L) 20 - 43 % 12/22/2020 1:37 PM [facility] Monocytes % Manual 7 5 - 13 % 12/22/2020 1:37 PM [facility] Eosinophils % Manual 3 0 - 6 % 12/22/2020 1:37 PM [facility] Neutrophils Absolute Manual 6.00 2.01 - 7.14 x10E9/L 12/22/2020 1:37 PM [facility] Lymphocytes Absolute Manual 0.68(L) 1.07 - 3.94 x10E9/L 12/22/2020 1:37 PM [facility] Monocytes Absolute Manual 0.53 0.26 - 1.07 x10E9/L 12/22/2020 1:37 PM [facility] Eosinophils Absolute Manual 0.23 0.00 - 0.47 x10E9/L 12/22/2020 1:37 PM [facility] Atypical Lymphocytes Absolute Manual 0.08(H) <=0.00 x10E9/L 12/22/2020 1:37 PM [facility] Atypical Lymphocyte % Manual 1(H) <=0 % 12/22/2020 1:37 PM [facility] Cells Counted 100 # cells 12/22/2020 1:37 PM [facility] RBC Morphology Normal 12/22/2020 1:37 PM [facility] WBC Morph Normal 12/22/2020 1:37 PM [facility] Platelet Estimation Normal 12/22/2020 1:37 PM [facility] Blood BLOOD SPECIMEN / Unknown Venipuncture / Unknown 12/22/2020 4:00 AM AUDIO VISUAL COORDINATOR 12/22/2020 12:30 PM AUDIO VISUAL COORDINATOR Kee Roe MD LAB - HEMATOLOGY ORDERABLES Baylee l Result [facility] [address] [place], [place] [id number] * VANCOMYCIN LEVEL TROUGH (12/22/2020 4:00 AM AUDIO VISUAL COORDINATOR) Pathologist [facility] Vancomycin Trough 18.1 10.0 - 20.0 ug/mL 12/22/2020 12:57 PM AUDIO VISUAL COORDINATOR [facility] Blood BLOOD SPECIMEN / Unknown Venipuncture / Unknown 12/22/2020 4:00 AM AUDIO VISUAL COORDINATOR 12/22/2020 12:34 PM AUDIO VISUAL COORDINATOR us Kee Roe MD LAB - CHEMISTRY ORDERABLES Final Result [facility] [address] [place] [address] * (ABNORMAL) PHOSPHORUS BLOOD (12/22/2020 4:00 AM AUDIO VISUAL COORDINATOR) [facility] Phosphorus 5.3(H) 2.3 - 4.7 mg/dL 12/22/2020 1:01 PM AUDIO VISUAL COORDINATOR [facility] Blood BLOOD SPECIMEN / Unknown Venipuncture / Unknown 12/22/2020 4:00 AM AUDIO VISUAL COORDINATOR 12/22/2020 12:30 PM AUDIO VISUAL COORDINATOR us Kee Roe MD LAB - CHEMISTRY ORDERABLES Final Result Performing Organization Address [facility] Co de Phone Number [facility] [address] [place] [phone] * MAGNESIUM BLOOD (12/22/2020 4:00 AM AUDIO VISUAL COORDINATOR) [facility] Magnesium 2.0 1.6 - 2.6 mg/dL 12/22/2020 1:01 PM AUDIO VISUAL COORDINATOR [facility] Blood BLOOD SPECIMEN / Unknown Venipuncture / Unknown 12/22/2020 4:00 AM AUDIO VISUAL COORDINATOR 12/22/2020 12:30 PM AUDIO VISUAL COORDINATOR us Kee Roe MD LAB - CHEMISTRY ORDERABLES Final Result Performing Organization Address City/[facility]/ZIP Co de Phone Number [facility] [address] [place] [phone] * (ABNORMAL) COMPREHENSIVE METABOLIC PANEL (12/22/2020 4:00 AM AUDIO VISUAL COORDINATOR) [facility] Glucose 105 70 - 105 mg/dL 12/22/2020 1:01 PM [facility] Sodium 138 136 - 145 mmol/L 12/22/2020 1:01 PM [facility] Potassium 4.1 3.5 - 5.1 mmol/L 12/22/2020 1:01 PM [facility] Chloride 105 98 - 107 mmol/L 12/22/2020 1:01 PM [facility] CO2 20(L) 23 - 31 mmol/L 12/22/2020 1:01 PM [facility] Calcium 8.0(L) 8.4 - 10.4 mg/dL 12/22/2020 1:01 PM [facility] Anion Gap 13 8 - 18 mmol/L 12/22/2020 1:01 PM [facility] BUN 10 8.4 - 25.7 mg/dL 12/22/2020 1:01 PM [facility] Creatinine 0.74 0.72 - 1.25 mg/dL 12/22/2020 1:01 PM [facility] Alkaline Phosphatase 323(H) 40 - 150 U/L 12/22/2020 1:01 PM [facility] ALT 19 0 - 61 U/L 12/22/2020 1:01 PM [facility] AST 15 5 - 34 U/L 12/22/2020 1:01 PM [facility] Protein Total 5.6(L) 6.4 - 8.3 gm/dL 12/22/2020 1:01 PM [facility] Albumin 2.4(L) 3.5 - 5.2 gm/dL 12/22/2020 1:01 PM [facility] Bilirubin Total 0.4 0.2 - 1.2 mg/dL 12/22/2020 1:01 PM [facility] eGFR by MDRD >60 >60 mL/min/1.7 3m2 12/22/2020 1:01 PM [facility] eGFR by MDRD >60 >60 mL/min/1.7 3m2 12/22/2020 1:01 PM [facility] Blood BLOOD SPECIMEN / Unknown Venipuncture / Unknown 12/22/2020 4:00 AM AUDIO VISUAL COORDINATOR 12/22/2020 12:30 PM AUDIO VISUAL COORDINATOR us Kee Roe MD LAB - CHEMISTRY ORDERABLES Final Result Performing Organization Address City/[facility]/ZIP Co de Phone Number [facility] [address] [place] [address] * (ABNORMAL) CBC WITH DIFFERENTIAL (12/22/2020 4:00 AM AUDIO VISUAL COORDINATOR) WBC 7.5 4.4 - 10.7 x10E9/L 12/22/2020 12:49 PM AUDIO VISUAL COORDINATOR [facility] WBC Corrected 12/22/2020 12:49 PM [facility] RBC 2.77(L) 3.80 - 5.40 x10E12/L 12/22/2020 12:49 PM [facility] Hemoglobin 7.2(L) 12.0 - 17.6 gm/dL 12/22/2020 12:49 PM [facility] Hematocrit 24.6(L) 35.2 - 51.7 % 12/22/2020 12:49 PM [facility] MCV 88.8 80.7 - 98.3 fl 12/22/2020 12:49 PM [facility] MCH 26.0(L) 26.7 - 34.0 pg 12/22/2020 12:49 PM [facility] MCHC 29.3(L) 30.8 - 35.9 gm/dL 12/22/2020 12:49 PM [facility] Platelet Count 338 153 - 416 x10E9/L 12/22/2020 12:49 PM [facility] RDW-CV 15.2(H) 12.1 - 14.9 % 12/22/2020 12:49 PM [facility] MPV 12.9 9.4 - 12.9 fl 12/22/2020 12:49 PM [facility] nRBC Auto 1 /100 WBC 12/22/2020 12:49 PM [facility] Blood BLOOD SPECIMEN / Unknown Venipuncture / Unknown 12/22/2020 4:00 AM AUDIO VISUAL COORDINATOR 12/22/2020 12:30 PM AUDIO VISUAL COORDINATOR Kee Roe MD LAB - HEMATOLOGY ORDERABLES Baylee l Result [facility] [address] [place] [address] documented in this encounter Visit Diagnoses Not on filedocumented in this encounter
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
[2024-11-05 19:35] VITALS: BMI 36.2
== END 2024-10-14 06:24 | disposition home or self-care (01) ==
PROVIDERS: PCP Family Medicine; Visit Provider Family Medicine
DX: G47.61 Periodic limb movement disorder (principal); G47.33 Obstructive sleep apnea (adult) (pediatric)
CPT/HCPCS: 95810